=== PATIENT | female | born 1935 | race Caucasian/White ===

== ENCOUNTER → 2017-08-08 | Outpatient (CLI) | payer MEDICARE, BC ==
[2016-11-09 13:49] VITALS: BMI 26.4
[~2017-08-08] MED LIST: ACET-2043 PO; AMLO-96 PO; AMLO-98 PO; AMLO-99 PO; ANAS1TAB34 PO; ASPI-715 PO; CALC-547 PO; CALC-852 PO; CHOL10005 PO; CYAN100088 PO; DILT-145 PO; EZE10 PO; FLU IM; FLU45SYR25 IM ONLY; FLU60SYR30 IM ONLY; FURO-45 PO; GABA-547 PO; GABA-549 PO; IBAN150T6 PO; INDO-1 PO; LEVO-3 PO; LEVO-315 PO; LEVO100T95 PO; LEVO50TA86 PO; LEVO75TA73 PO; LEVO88TA43 PO; LEVO88TA45 PO; LIDO700A19 TP; LISI-368 PO; LOSA100T67 PO; MELO-205 PO; METF-410 PO; METO-231 PO; MULT-1124 PO; MULT1CAP59 PO; NAP250 PO; PANT40TA65 PO; RANI-318 PO; SIMV-42 PO; SIMV-49; SIMV-49 PO; SIMV10TA98 PO; SPIR25TA78 PO; SULF-198 PO; TRAM-420 PO; VYTORIN
--- NOTE | 2017-08-08 12:46 | RADIOLOGY IMAGING REPORT ---
FACILITY: [facility] PATIENT NAME: Val Wallace : 1935 MR: [id number] V: [id number] EXAM DATE: ORDERING PHYSICIAN: KARLOS GREENE TECHNOLOGIST: [place] [facility] [place]: Val Wallace : 1935 Visit/Account:[id number] Date of Sevice: 08/08/2017 Exam type: CHEST PA AND LAT History: Breast cancer, no chest complaints Comparison: April 07, 2017. Findings: There is chronic blunting the right costophrenic angle. Multiple old bilateral fractures and old fra cture to the medial aspect the right clavicle again seen. There is been surgical resection of the di stal tip of the right clavicle as well. There is no evidence of acute appearing infiltrates pleural effusions or pulmonary edema. There is hyperinflation of the lung mata. The cardiac silhouette is normal in size. There are postsurgical changes from a left mastectomy. S-shaped scoliosis of the t horacal lumbar spine with extensive spondylotic changes IMPRESSION: 1. Chronic blunting of the right costophrenic angle although no evidence of acute pulmonary consolid ation Report Dictated By: Barbara Zuniga MD at 08/08/2017 12:39 PM Report E-Signed By: Barbara Zuniga MD at 08/08/2017 12:41 PM WSN:[email or web address]
--- NOTE | 2017-08-08 12:47 | RADIOLOGY IMAGING REPORT ---
FACILITY: [facility] PATIENT NAME: Val Wallace : 1935 MR: [id number] V: [id number] EXAM DATE: ORDERING PHYSICIAN: KARLOS GREENE TECHNOLOGIST: Location: [facility] Patient: Val Wallace : 1935 Visit/Account:[id number] Date of Sevice: 08/08/2017 DEXA Scan Clinical history: History of mastectomy and rib fractures. Comparison: DEXA scan from 11/27/2015. LUMBAR SPINE: The bone mineral density (BMD) measured from L1-L4 correlates with a Z-score of 4.2 and a T-score of 2.2 which is Normal as defined by the World Health Organization. The corresponding risk of fracture in the lumbar spine is Not increased compared with a young adult reference population. This value deutsch s increased by 6.9 % since the prior study. More than 5% change is considered significant. HIP: Bone mineral density (BMD) measured in the LEFT total hip region correlates with a Z-score -0.3 and a T-score of -2.4 which is osteopenia as defined by the World Health Organization. The corresponding risk of fracture in the hip is 4-6 times increased compared to a young adult reference population. Th is value has decreased by 6.9 % since the prior study. More than 5% change is considered significant . T score left femoral neck -1.2 Bone mineral density (BMD) measured in the Femoral Neck region measures 0.867 g/cm?. IMPRESSION: 1. Lumbar spine: Normal. There has been 6.9% increase in the bone mineral density since the previou s exam. 2. Left Total Hip: Osteopenia. There has been 6.9% decrease in the bone mineral density since the p revious exam. 3. Femoral Neck: Bone Mineral Density is 0.867 g/cm? The next DEXA scan of this patient should include the following sites: L1-L4 and the left hip. FRAX? WHO Fracture Risk Assessment Tool link: <http://www.shef.ac.uk/FRAX/tool.jsp?locationValue=9> PLEASE NOTE: 1) The World Health Organization defines low BMD as follows: T-score Normal > -1 Osteopenia < -1 and > -2.5 Osteoporosis < -2.5 without fractures Established osteoporosis < -2.5 with fractures 2) In general, you may wish to consider: Diagnosis Treatment Follow-up DEXA Normal BMD Prevention 2-3 years Osteopenia Prevention/therapy 1-2 years Osteoporosis Therapy Yearly 3) Fracture risk estimated from the T-score is more accurate for vertebral fractures (often spontane ous) than for hip fractures. Report Dictated By: Barbara Zuniga MD at 08/08/2017 12:41 PM Report E-Signed By: Barbara Zuniga MD at 08/08/2017 12:43 PM WSN:[email or web address]
--- NOTE | 2017-08-08 15:55 | RADIOLOGY IMAGING REPORT ---
FACILITY: [facility] - [place] PATIENT NAME: MIGDALIA DIAZ : [id number] MR: [id number] V: [id number] EXAM DATE: ORDERING PHYSICIAN: KARLOS GREENE TECHNOLOGIST: Rachell Dejesus PROCEDURE: MAMMOGRAM SCREENING RIGHT UNILATERAL WITH CAD ASSISTED INTERPRETATION & 3D TOMOSYNTHESIS COMPARISON: Prior mammograms dated 08/07/16, 08/07/15, 08/02/14, 07/29/13, 07/28/12, 07/25/11 INDICATIONS: SCREENING FINDINGS: Moderately heterogeneous fibroglandular tissue is seen throughout the Right breast. The parenchymal pattern has remained stable allowing for difference in mammographic technique & patient positioning. There is no evidence of malignant appearing mass, malignant appearing calcification or other secondary sign of malignancy in the Right breast. DIAGNOSTIC CATEGORY 1--NEGATIVE. RECOMMENDATIONS: ROUTINE MAMMOGRAM AND CLINICAL EVALUATION. IMPRESSION: BIRADS 1: Negative. No significant abnormality of the Right breast is seen. Dictated by: Barbara Zuniga M.D. on 08/08/2017 at 13:22 Transcribed by: ALLEGRA on 08/08/2017 at 14:41 Approved by: Barbara Zuniga M.D. on 08/08/2017 at 15:54 [facility]
== END ==
LOC: MAMO 05:55
PROVIDERS: ATTEND Internal Medicine
DX: Z13.820 Encounter for screening for osteoporosis (principal); Z12.31 Encounter for screening mammogram for malignant neoplasm of breast; M85.88 Other specified disorders of bone density and structure, other site; R91.8 Other nonspecific abnormal finding of lung field; Z90.12 Acquired absence of left breast and nipple; M41.84 Other forms of scoliosis, thoracic region; M47.894 Other spondylosis, thoracic region; Z98.890 Other specified postprocedural states
CPT/HCPCS: 71046; 77063; 77067; 77080

== ENCOUNTER → 2017-09-02 | Outpatient (CLI) | payer MEDICARE, BC ==
[2016-11-09 13:49] VITALS: BMI 26.4
[~2017-09-02] MED LIST changes: -METF-410 PO; +METF-411 PO
[2017-09-02 14:11] LABS: PLATELET COUNT, AUTOMATED 226 K/uL (150-450)
== END ==
LOC: LAB 13:55
PROVIDERS: ATTEND Internal Medicine
DX: E78.00 Pure hypercholesterolemia, unspecified (principal); I10 Essential (primary) hypertension; E03.9 Hypothyroidism, unspecified; R79.89 Other specified abnormal findings of blood chemistry
CPT/HCPCS: 36415; 82040; 82247; 82310; 82374; 82435; 82465; 82565; 82947; 83718; 84075; 84132; 84155; 84295; 84443; 84450; 84460; 84478; 84520; 85025

== ENCOUNTER 2017-09-10 10:48 | Inpatient (IN) | payer MEDICARE, BC ==
[~2017-09-10] VITALS: Ht 152.4 cm; Wt 61.9 kg
[~2017-09-10 10:48] MED LIST changes: -LACT1CAP4 PO
[2017-09-10] MEDS ORDERED: LACT1CAP4 PO (10:52)
--- NOTE | 2017-09-10 11:06 | ER Report ---
History and Physical Time Seen By MD: 10:50 Hx. of Stated Complaint: pt tripped last night and fell behind recliner onto L hip and arm, rebecca a tramadol and thought it would get better but still hurting this am HPI/ROS CHIEF COMPLAINT: Left hip left arm pain HISTORY OF PRESENT ILLNESS: 82-year-old female presents emergency department today after mechanical fall she tripped on a mat underneath a chair in front of her computer at home she has pain onto her left hip and left upper bladder neck trauma no loss of consciousness chest pain abdominal pain was not dizzy prior to was dizzy after the fall unable to ambulate she walked her stumbled herself in the bed went to sleep workup in the pain would be better she is unable to bear weight on the left leg REVIEW OF SYSTEMS: Respiratory: No cough, no dyspnea. Cardiovascular: No chest pain, no palpitations. Gastrointestinal: No vomiting, no abdominal pain. Musculoskeletal: Left arm and left hip pain Remainder of the 14 system rev: Yes Allergies: Coded Allergies: Sulfa (Sulfonamide Antibiotics) (Verified Allergy, Intermediate, 09/10/17) sulfamethoxazole (Verified Allergy, Intermediate, 09/10/17) Flushing of face, Rash to entire body. trimethoprim (Verified Allergy, Intermediate, 09/10/17) Flushing of face, Rash to entire body. Penicillins (Verified Allergy, Mild, 09/10/17) MIKE Inhibitors (Unverified Allergy, Unknown, COUGH, 09/10/17) NSAIDS (Non-Steroidal Anti-Inflamma (Unverified Allergy, Unknown, UNKNOWN , 09/10/17) cephalexin (Unverified Allergy, Unknown, UNKNOWN, 09/10/17) erythromycin base (Unverified Allergy, Unknown, UNKNOWN, 09/10/17) spironolactone (Unverified Allergy, Unknown, UNKNOWN, 09/10/17) Home Meds Active Scripts Losartan Potassium (LOSARTAN POTASSIUM) 100 Mg Tablet, 1 TAB PO QDAY, #90 TAB 3 Refills Prov:KARLOS GREENE MD 09/05/17 Gabapentin (GABAPENTIN) 300 Mg Capsule, 300 MG PO TID Y for pain, #180 CAPSULE 4 Refills Prov:KARLOS GREENE MD 07/29/17 Levothyroxine Sodium (LEVOTHYROXINE SODIUM) 50 Mcg Tablet, 50 MCG PO QDAY, #90 TAB 4 Refills Prov:KARLOS GREENE MD 07/29/17 Simvastatin (SIMVASTATIN) 10 Mg Tablet, 10 MG PO HS, #90 TAB 3 Refills Prov:KARLOS GREENE MD 05/13/17 Amlodipine Besylate (AMLODIPINE BESYLATE) 5 Mg Tablet, 1 TAB PO QDAY, #90 TAB 4 Refills Prov:KARLOS GREENE MD 05/13/17 Tramadol Hcl (TRAMADOL HCL) 50 Mg Tablet, 50 MG PO QID Y for PAIN, #120 TAB 5 Refills Prov:KARLOS GREENE MD 05/13/17 Pantoprazole Sodium (PANTOPRAZOLE SODIUM) 40 Mg Tablet.dr, 40 MG PO QDAY, #90 TAB.SR 3 Refills Prov:KARLOS GREENE MD 11/14/16 Lidocaine (Lidocaine) 5 % Adh..patch, 1 EACH TP QDAY, #14 PATCH.24H 2 Refills Prov:ISABELA LOPEZ MD 11/10/16 Acetaminophen (ACETAMINOPHEN) 500 Mg Tablet, 500-1000 MG PO Q8H Y for PAIN for 30 Days, TAB Prov:ISABELA LOPEZ MD 11/10/16 Reported Medications Lactobacillus Acidophilus (PROBIOTIC) 1 Each Capsule, 1 EACH PO DAILY, CAPSULE 09/10/17 Cholecalciferol (Vitamin D3) (VITAMIN D3) 1,000 Unit Tablet, 1 TAB PO DAILY 12/22/13 Multivitamin (DAILY VITAMIN FORMULA) 1 Each Tablet, 1 TAB PO DAILY 12/22/13 Calcium Carbonate/Vitamin D3 (CALCIUM + VITAMIN D TABLET) 1 Each Tablet, 1 TAB PO DAILY 12/22/13 Reviewed Nurses Notes: Yes Old Medical Records Reviewed: Yes Hx Smoking: No Smoking Status: Never Smoker Hx Substance Use Disorder: No Hx Alcohol Use: Yes Constitutional Vital Sign - Last 24 Hours 09/10/17 10:53 Temp 97.7 Pulse 72 B/P (MAP) 136/91 Pulse Ox 18 Physical Exam General Appearance: The patient is alert, has no immediate need for airway protection and no current signs of toxicity. [ ] Eyes: Pupils equal and round no injection. Respiratory: Chest is non tender, lungs are clear to auscultation. Cardiac: regular rate and rhythm [ ] Gastrointestinal: Abdomen is soft and non tender, no masses, bowel sounds normal. Musculoskeletal: Left lower external examination pain with abduction and adduction the left lower extremity and able to weight-bear pain with flexion and extension of the hip no obvious deformity noted neurovascularly intact left upper extremity full range of motion of the elbow shoulder and wrist no obvious deformities no bruising mild tenderness to the distal humeral bone otherwise unremarkable exam Neck is supple and non tender. Extremities full range of motion other than stated above Skin: No rashes or lesions. [ ] DIFFERENTIAL DIAGNOSIS: After history and physical exam differential diagnosis was considered for left hip fracture left contusion left arm fracture versus contusion Medical Decision Making ED Course/Re-evaluation ED Course ED coming course medical decision-making 82-year-old female mechanical fall she has a inferior and superior rami fractures comminuted mildly displaced and a small sacral fracture unable to ambulate orthopedics evaluating imaging advised to attempt ambulation this was unsuccessful patient able and will be admitted orthopedics will be consulted as an inpatient patient will be considered for outpatient prolonged care wants inpatient duration is patient no additional complaints noted no head or neck trauma no loss of consciousness no neck any indication for additional imaging diagnosis pelvis fracture Decision to Disposition Date: September 10, 2017 Decision to Disposition Time: 13:21 Depart Departure Latest Vital Signs Vital Signs Date Time Temp Pulse Resp B/P (MAP) Pulse Ox O2 Delivery O2 Flow Rate FiO2 09/10/17 10:53 97.7 72 136/91 18 Impression: Primary Impression: Pelvis fracture Condition: Improved Disposition: Admitted from ER Referrals: KARLOS GREENE MD (PCP) NAMAN LOVE MD September 10, 2017 11:06
--- NOTE | 2017-09-10 11:50 | RADIOLOGY IMAGING REPORT ---
FACILITY: [facility] PATIENT NAME: Val Wallace : 1935 MR: [id number] V: [id number] EXAM DATE: ORDERING PHYSICIAN: NAMAN LOVE TECHNOLOGIST: Location: [facility] [place] Patient: Val Wallace : 1935 Visit/Account:[id number] Date of Sevice: 09/10/2017 AP pelvis, one view, and left hip, one view. HISTORY: Fall last night. COMPARISON: 12/14/2014. The bones are osteopenic. A mildly comminuted oblique fracture is present in the left superior pubic ramus resulting in a 5 mm offset of fracture fragments. Slight cortical irregularities are present in the left inferior pubic ramus near its junction with the ischium suspicious for a nondisplaced fra cture. Small marginal osteophytes and moderate joint space narrowing are present in the left hip. M etal hardware is present in the right hip. Degenerative changes are present in the lower lumbar spin e. The sacroiliac joints are not widened. A few dystrophic calcifications are present in the soft t issues bilaterally. IMPRESSION: Insufficiency fractures of the left superior and inferior pubic rami. Moderate left hip osteoarthritis. Report Dictated By: Gagandeep Thomas MD at 09/10/2017 11:40 AM Report E-Signed By: Gagandeep Thomas MD at 09/10/2017 11:46 AM WSN:[email or web address]
--- NOTE | 2017-09-10 12:00 | RADIOLOGY IMAGING REPORT ---
FACILITY: [facility] PATIENT NAME: Val Wallace : 1935 MR: [id number] V: [id number] EXAM DATE: ORDERING PHYSICIAN: NAMAN LOVE TECHNOLOGIST: Location: [facility] Patient: Val Wallace : 1935 Visit/Account:[id number] Date of Sevice: 09/10/2017 Left humerus, two views. HISTORY: Fall. COMPARISON: None. The bones are osteopenic. A lucent line projects on the proximal humerus possibly representing a ski n fold. Degenerative changes are present in the shoulder and elbow. Metal clips project on the left chest. IMPRESSION: A lucent line projects on the proximal humerus possibly representing a skin fold. A nondisplaced fra cture is not excluded. Additional imaging might be considered, if clinically indicated. Report Dictated By: Gagandeep Thomas MD at 09/10/2017 11:50 AM Report E-Signed By: Gagandeep Thomas MD at 09/10/2017 11:56 AM SAMSONN:MARGARET
--- NOTE | 2017-09-10 12:49 | RADIOLOGY IMAGING REPORT ---
FACILITY: [facility] PATIENT NAME: Val Wallace : 1935 MR: [id number] V: [id number] EXAM DATE: ORDERING PHYSICIAN: NAMAN LOVE TECHNOLOGIST: Location: [facility] Patient: Val Wallace : 1935 Visit/Account:[id number] Date of Sevice: 09/10/2017 CT of the osseous pelvis without contrast Indication: Left-sided pelvic pain. Comparison: None available. Technique: Axial CT images were obtained through the pelvis. Reformatted coronal and sagittal images were reviewed. One of the following dose optimization techniques was utilized in the performance of this exam: Autom ated exposure control; adjustment of the mA and/or kV according to the patient's size; or use of an i terative reconstruction technique. Specific details can be referenced in the facility's radiology C T exam operational policy. Findings: There is a mildly displaced and comminuted fracture of the left superior rami and the left inferior r ami. There is a nondisplaced fracture of the left sacrum, just medial to the SI joint. SI joint appea rs to be intact. The left acetabulum shows no appreciable fractures. The left femoral head and neck s how no appreciable fractures. No dislocation. Right hip shows arthroplasty changes without sequelae. No other indication of fracture. No dislocation or bony lesion. Mild diffuse osteopenia. The soft tis sues around the left hip and upper thigh do show some mild areas of atrophy however no other focal ab normality. No appreciable left hip joint effusion. There is thickening of the left obturator internus muscle which could represent a small hematoma. The re is no appreciable mass effect. The anterior and left intra-pelvic fat does show inflammatory and l inear stranding without hematoma or other focal abnormality. The urinary bladder appears to be intact . Diverticula seen along the sigmoid colon without discrete pericolonic inflammation. The uterus and ovaries and visualized may been surgically removed. The remaining pelvic structures visualized within normal limits. IMPRESSION: 1. There is nondisplaced fracture of the left sacrum, just medial to the SI joint, SI joint is intact . There is a mildly displaced and comminuted fracture of the left superior and inferior rami. 2. There is prominence of the left obturator internus muscle which could be secondary to hematoma wit hout mass effect. There is also some stranding of the intrapelvic fat of the anterior and left side w hich could be secondary to traumatic injury. A cause is not identified within the pelvis. The urinary bladder appears to be intact. 3. Diverticulosis without radiographic indication diverticulitis. Report Dictated By: Wily Khan at 09/10/2017 12:33 PM Report E-Signed By: Wily Khan at 09/10/2017 12:44 PM WSN:[email or web address]
[2017-09-10] MEDS ORDERED: MORPHINE 4 MG/ML SDV IVP PRN (14:55)
[2017-09-10] MEDS ORDERED: PROMETHAZINE 25 MG/ML 1 ML AMP IVP PRN (14:55)
[2017-09-10 15:43] VITALS: BP 142/78
--- NOTE | 2017-09-10 15:43 | History & Physical ---
History of Present Illness Chief Complaint Left hip pain History of Present Illness She presented to the emergency department with left hip pain. She reports she tripped over a floor mat at home and fell onto her left side last night. She states she was able to get herself into bed for the evening, but was not able to ambulate this morning. She denies any head or neck trauma. History Problems: (1) Hx of mastectomy Onset Date: 08/01/2014 Status: Chronic (2) Hypertension, benign Status: Chronic (3) Hypercholesterolemia Status: Chronic (4) Esophageal reflux Status: Chronic (5) Hypothyroidism Status: Chronic Home Meds Active Scripts Losartan Potassium (LOSARTAN POTASSIUM) 100 Mg Tablet, 1 TAB PO QDAY, #90 TAB 3 Refills Prov:KARLOS GREENE MD 09/05/17 Gabapentin (GABAPENTIN) 300 Mg Capsule, 300 MG PO TID Y for pain, #180 CAPSULE 4 Refills Prov:KARLOS GREENE MD 07/29/17 Levothyroxine Sodium (LEVOTHYROXINE SODIUM) 50 Mcg Tablet, 50 MCG PO QDAY, #90 TAB 4 Refills Prov:KARLOS GREENE MD 07/29/17 Simvastatin (SIMVASTATIN) 10 Mg Tablet, 10 MG PO HS, #90 TAB 3 Refills Prov:KARLOS GREENE MD 05/13/17 Amlodipine Besylate (AMLODIPINE BESYLATE) 5 Mg Tablet, 1 TAB PO QDAY, #90 TAB 4 Refills Prov:KARLOS GREENE MD 05/13/17 Tramadol Hcl (TRAMADOL HCL) 50 Mg Tablet, 50 MG PO QID Y for PAIN, #120 TAB 5 Refills Prov:KARLOS GREENE MD 05/13/17 Pantoprazole Sodium (PANTOPRAZOLE SODIUM) 40 Mg Tablet.dr, 40 MG PO QDAY, #90 TAB.SR 3 Refills Prov:KARLOS GREENE MD 11/14/16 Acetaminophen (ACETAMINOPHEN) 500 Mg Tablet, 500-1000 MG PO Q8H Y for PAIN for 30 Days, TAB Prov:ISABELA LOPEZ MD 11/10/16 Reported Medications Lactobacillus Acidophilus (PROBIOTIC) 1 Each Capsule, 1 EACH PO DAILY, CAPSULE 09/10/17 Cholecalciferol (Vitamin D3) (VITAMIN D3) 1,000 Unit Tablet, 1 TAB PO DAILY 12/22/13 Multivitamin (DAILY VITAMIN FORMULA) 1 Each Tablet, 1 TAB PO DAILY 12/22/13 Calcium Carbonate/Vitamin D3 (CALCIUM + VITAMIN D TABLET) 1 Each Tablet, 1 TAB PO DAILY 12/22/13 Discontinued Scripts Lidocaine (Lidocaine) 5 % Adh..patch, 1 EACH TP QDAY, #14 PATCH.24H 2 Refills Prov:ISABELA LOPEZ MD 11/10/16 Allergies: Coded Allergies: Sulfa (Sulfonamide Antibiotics) (Verified Allergy, Intermediate, 09/10/17) sulfamethoxazole (Verified Allergy, Intermediate, 09/10/17) Flushing of face, Rash to entire body. trimethoprim (Verified Allergy, Intermediate, 09/10/17) Flushing of face, Rash to entire body. Penicillins (Verified Allergy, Mild, 09/10/17) MIKE Inhibitors (Unverified Allergy, Unknown, COUGH, 09/10/17) NSAIDS (Non-Steroidal Anti-Inflamma (Unverified Allergy, Unknown, UNKNOWN , 09/10/17) cephalexin (Unverified Allergy, Unknown, UNKNOWN, 09/10/17) erythromycin base (Unverified Allergy, Unknown, UNKNOWN, 09/10/17) spironolactone (Unverified Allergy, Unknown, UNKNOWN, 09/10/17) Patient History: FH: CHF (congestive heart failure) MOTHER, , Age:79 FH: breast cancer 1ST COUSIN, FH: multiple myeloma BROTHER OR SISTER Unknown FATHER Hx Smoking: No Smoking Status: Never Smoker Hx Alcohol Use: Yes Hx Substance Use Disorder: No Social Drug Use: Never Review of Systems All Systems Reviewed/Normal: Yes, Except as Noted Musculoskeletal: Pain (left hip) Exam Vital Signs Vital Signs Date Time Temp Pulse Resp B/P (MAP) Pulse Ox O2 Delivery O2 Flow Rate FiO2 09/10/17 14:00 152/71 (98) 09/10/17 13:35 65 96 09/10/17 10:53 97.7 General Appearance: Alert, Awake, No Acute Distress, Afebrile Neuro: No Gross deficits Cardiovascular: Regular Rate and Rhythm Respiratory: No Respiratory Distress, Clear to Auscultation GI: Abd Soft and Non-Tender Extremities: Perfused, No Edema Psych: Alert & Oriented X3, Appropriate Mood & Affect Assessment and Plan Problems: (1) Pelvis fracture Status: Acute Assessment & Plan: She was admitted for pelvis fracture. CT of pelvis noted a nondisplaced fracture of the left sacrum and a mildly displaced fracture to the superior and inferior rami. She will be given IV and oral pain medication. She will get a Hurt catheter to help with urination. She will get her labs checked today. At this time, we will keep her non-weight bearing on the left leg. We will order PT and OT evaluation. (2) Hypertension, benign Status: Chronic Assessment & Plan: She is on chronic treatment with Amlodipine and Losartan. The medications were started with hold parameters. (3) Hypothyroidism Status: Chronic Assessment & Plan: She is on chronic treatment with Levothyroxine. (4) Hypercholesterolemia Status: Chronic Assessment & Plan: She is on chronic treatment with Simvastatin. Venous Thromboembolism Antithrombotics Is Pt On Any Antithrombotics?: No Exam Sepsis Risk: No Definite Risk Problem Qualifiers (1) Pelvis fracture: Encounter type: initial encounter KELVIN PLATT September 10, 2017 15:43
[2017-09-10] MEDS: APAP/HYDROCODONE 325/5 TAB PO PRN ×2 (15:54→23:08)
[2017-09-10 16:40] LABS: PLATELET COUNT, AUTOMATED 143 K/uL (150-450)
[2017-09-10 16:49] LABS: INR 1.06
[2017-09-10] MEDS ORDERED: LIDOCAINE/SOD BICARB 8.4% SYR ONE (17:27)
[2017-09-10 20:42] VITALS: BP 108/104
[2017-09-10] MEDS: SIMVASTATIN 20 MG TAB PO SCH (20:45)
[2017-09-10] MEDS: GABAPENTIN 300 MG CAP PO PRN (20:45)
[2017-09-11 05:15] VITALS: BP 158/80
[2017-09-11] MEDS: LEVOTHYROXINE SOD 0.05 MG TAB PO SCH (05:19)
[2017-09-11] MEDS: APAP/HYDROCODONE 325/5 TAB PO PRN ×3 (05:20→21:17)
[2017-09-11 06:15] LABS: PLATELET COUNT, AUTOMATED 131 K/uL (150-450)
[2017-09-11 07:16] VITALS: BP 148/74
[2017-09-11] MEDS: NS(*) 0.9% 1000 ML BAG 1,000 ML IV PRN ×2 (10:11→21:48)
[2017-09-11] MEDS: GABAPENTIN 300 MG CAP PO PRN ×2 (10:11→20:19)
[2017-09-11] MEDS: amLODIPine BESYL(*) 5 MG TAB PO SCH (10:12)
[2017-09-11] MEDS: LOSARTAN POTASSIUM 50 MG TAB PO SCH (10:12)
[2017-09-11] MEDS: PANTOPRAZOLE SOD 40 MG TABEC PO SCH (10:12)
[2017-09-11 12:29] VITALS: Ht 152.4 cm; Wt 61.9 kg
--- NOTE | 2017-09-11 13:41 | Hospitalist Progress Note ---
Subjective Progress Notes Subjective She reports her pain is much better today. Patient Complains of: Cardiovascular: No: Chest Pain Respiratory: No: Shortness of Breath Physical Exam Vital Signs Date Time Temp Pulse Resp B/P (MAP) Pulse Ox O2 Delivery O2 Flow Rate FiO2 09/11/17 10:00 Nasal Cannula 1.0 09/11/17 07:16 98.9 72 18 148/74 (98) 90 Intake and Output 09/12/17 01:00 Intake Total 840 ml Output Total 550 ml Balance 290 ml Intake Oral 840 ml Output Urine Total 550 ml General Appearance: Alert, Awake, No Acute Distress, Afebrile Neuro: No Gross deficits Cardiovascular: Regular Rate and Rhythm Respiratory: No Respiratory Distress, Clear to Auscultation GI: Soft and Non-Tender Psych: Alert & Oriented X3, Appropriate Mood & Affect Result Diagram: 09/11/1751409/11/17514 Assessment and Plan Problems: (1) Pelvis fracture Status: Acute Assessment & Plan: She was admitted for pelvis fracture. CT of pelvis noted a nondisplaced fracture of the left sacrum and a mildly displaced fracture to the superior and inferior rami. She will be given IV and oral pain medication. She will get a Hurt catheter to help with urination. Dr. Aparicio reviewed CT results , and we can advance to weight bearing to the left leg as tolerated. PT and OT will continue to work with patient for mobility. (2) Hyponatremia Status: Acute Assessment & Plan: She was found to have a sodium of 125 upon admission. She will receive IV hydration for sodium. We will recheck BMP. (3) Hypertension, benign Status: Chronic Assessment & Plan: She is on chronic treatment with Amlodipine and Losartan. The medications were started with hold parameters. (4) Hypothyroidism Status: Chronic Assessment & Plan: She is on chronic treatment with Levothyroxine. (5) Hypercholesterolemia Status: Chronic Assessment & Plan: She is on chronic treatment with Simvastatin. Exam Sepsis Risk: No Definite Risk Problem Qualifiers (1) Pelvis fracture: Encounter type: initial encounter KELVIN PLATTP September 11, 2017 13:41
[2017-09-11 16:00] VITALS: BP 144/74
[2017-09-11] MEDS: SIMVASTATIN 20 MG TAB PO SCH (20:19)
[2017-09-11 20:22] VITALS: BP 146/69
[2017-09-12 05:35] VITALS: BP 163/75
[2017-09-12] MEDS: LEVOTHYROXINE SOD 0.05 MG TAB PO SCH (05:35)
[2017-09-12] MEDS: GABAPENTIN 300 MG CAP PO PRN ×2 (05:35→20:16)
[2017-09-12 05:50] LABS: PLATELET COUNT, AUTOMATED 121 K/uL (150-450)
[2017-09-12] MEDS: NS(*) 0.9% 1000 ML BAG 1,000 ML IV PRN ×2 (08:31→20:16)
[2017-09-12] MEDS: PANTOPRAZOLE SOD 40 MG TABEC PO SCH (08:32)
[2017-09-12] MEDS: amLODIPine BESYL(*) 5 MG TAB PO SCH (09:53)
[2017-09-12] MEDS: LOSARTAN POTASSIUM 50 MG TAB PO SCH (09:53)
[2017-09-12 09:56] VITALS: BP 159/74
--- NOTE | 2017-09-12 10:14 | RADIOLOGY IMAGING REPORT ---
FACILITY: [facility] PATIENT NAME: Val Wallace : 1935 MR: [id number] V: [id number] EXAM DATE: ORDERING PHYSICIAN: KELVIN PLATT TECHNOLOGIST: [place] [facility] [place] : 1935 Visit/Account:[id number] Date of Sevice: 09/12/2017 CHEST, 1 Views HISTORY: Fever and increased oxygen use COMPARISON: 08/08/2017 FINDINGS: Heart size is normal. Normal size thoracic aorta is calcified at the arch. Mediastinum and blanca are normal. Lungs are clear of infiltrate and atelectasis. There is no pneumothorax or pleural effusion. There are right-sided healed fracture deformities. Previous left mastectomy and axillary lymph node sampling. IMPRESSION: No radiographic evidence of an acute chest process. Report Dictated By: Shira Sanders MD at 09/12/2017 9:24 AM Report E-Signed By: Shira Sanders MD at 09/12/2017 9:38 AM WSN:[email or web address]
--- NOTE | 2017-09-12 10:23 | RADIOLOGY IMAGING REPORT ---
[place] [facility] [place] Val Wallace : 1935 MR: [id number] V: [id number] EXAM DATE: ORDERING PHYSICIAN: KELVIN PLATT TECHNOLOGIST: Location: Patient: Val Wallace : 1935 Visit/Account:[id number] Date of Sevice: 09/12/2017 CT left shoulder Indication: Limited range of motion. Pain and bruising. Comparison: None available. Technique: Axial CT images were obtained through the left shoulder. Reformatted coronal and sagittal images were reviewed. One of the following dose optimization techniques was utilized in the performance of this exam: autom ated exposure control; adjustment of the mA and/or kV according to the patient's size; or use of an i terative reconstruction technique. Specific details can be referenced in the facility's radiology CT exam operational policy. Findings: No acute osseous abnormality of the bones of the shoulder. Markedly high riding humeral head noted in relation to the glenoid with the humeral head abutting the undersurface of the acromion consistent with a massive rotator cuff tear. These findings suggest com plete tearing of the supraspinatus and infraspinatus. There is significant motion artifact on the superior images on this exam. There are moderate to severe acromioclavicular degenerative changes also seen. There is a moderate sized likely reactive effusion glenohumeral joint. The biceps tendon appears to be intact within the superior bicipital groove. Multiple surgical clips seen within the left axilla. Correlate with the surgical history. Patchy/streaky atelectasis versus early infiltrates suggested within the visualized medial left lower lung. No definite pneumothorax identified within the left lung field or the medial mid to superior r ight visualized lung field. There are moderate atherosclerotic calcifications of the aortic arch. IMPRESSION: 1. Massive rotator cuff tear suggested as above. 2. Significant degenerative changes of the glenohumeral joint and the acromioclavicular joint. 3. No acute osseous abnormality. Report Dictated By: Brijesh Pacheco MD at 09/12/2017 10:16 AM Report E-Signed By: Brijesh Pacheco MD at 09/12/2017 10:19 AM WSN:[id number]
[2017-09-12] MEDS ORDERED: LEVOFLOXACIN/D5W 250 MG/50 ML 50 ML IVPB SCH (11:00)
--- NOTE | 2017-09-12 11:14 | Hospitalist Progress Note ---
Subjective Progress Notes Subjective Staff reports increased oxygen use since last night up to 3L, and low grade fevers. She denies cough. She does states she is having pain to her left shoulder and has been unable to raise her arm without assistance in lifting it. Patient Complains of: Cardiovascular: No: Chest Pain Respiratory: No: Shortness of Breath Musculoskeletal: Pain Physical Exam Vital Signs Date Time Temp Pulse Resp B/P (MAP) Pulse Ox O2 Delivery O2 Flow Rate FiO2 09/12/17 09:56 99.2 86 18 159/74 (102) 92 Nasal Cannula 1.0 Intake and Output 09/13/17 01:00 Intake Total 1842 ml Output Total 1400 ml Balance 442 ml Intake Oral 840 ml IV Total 1002 ml Output Urine Total 1400 ml General Appearance: Alert, Awake, No Acute Distress Neuro: No Gross deficits Cardiovascular: Regular Rate and Rhythm Respiratory: No Respiratory Distress, Clear to Auscultation GI: Soft and Non-Tender : Other (cloudy urine noted from bansal) Extremities: Soft and Non Tender Psych: Alert & Oriented X3, Appropriate Mood & Affect Result Diagram: 09/12/1751809/12/17518 Assessment and Plan Problems: (1) Pelvis fracture Status: Acute Assessment & Plan: She was admitted for pelvis fracture. CT of pelvis noted a nondisplaced fracture of the left sacrum and a mildly displaced fracture to the superior and inferior rami. She will be given IV and oral pain medication. She has a Bansal catheter to help with urination. Dr. Aparicio reviewed CT results, and we can advance to weight bearing to the left leg as tolerated. PT and OT will continue to work with patient for mobility. (2) UTI (urinary tract infection) Status: Acute Assessment & Plan: She had cloudy urine from catheter, along with increased fever. Her urine shows large leukocyte esterase and WBC. The urine culture is pending. We will start the patient on Levaquin secondary to many antibiotic allergies. (3) Hyponatremia Status: Acute Assessment & Plan: She was found to have a sodium of 125 upon admission. Sodium today is improving at 135. She will receive IV hydration for sodium. We will recheck BMP tomorrow. (4) Hypertension, benign Status: Chronic Assessment & Plan: She is on chronic treatment with Amlodipine and Losartan. The medications were started with hold parameters. (5) Hypothyroidism Status: Chronic Assessment & Plan: She is on chronic treatment with Levothyroxine. (6) Hypercholesterolemia Status: Chronic Assessment & Plan: She is on chronic treatment with Simvastatin. Exam Sepsis Risk: No Definite Risk Problem Qualifiers (1) Pelvis fracture: Encounter type: initial encounter (2) UTI (urinary tract infection): Urinary tract infection type: acute cystitis Hematuria presence: with hematuria Qualified Codes: N30.01 - Acute cystitis with hematuria KELVIN PLATT September 12, 2017 11:13
[2017-09-12 11:28] VITALS: BP 176/88
[2017-09-12 15:24] VITALS: BP 157/80
[2017-09-12] MEDS: APAP/HYDROCODONE 325/5 TAB PO PRN (17:02)
[2017-09-12 19:42] VITALS: BP 157/75
[2017-09-12] MEDS: SIMVASTATIN 20 MG TAB PO SCH (20:16)
[2017-09-13 05:33] VITALS: BP 165/83
[2017-09-13] MEDS: LEVOTHYROXINE SOD 0.05 MG TAB PO SCH (05:36)
[2017-09-13] MEDS: NS(*) 0.9% 1000 ML BAG 1,000 ML IV PRN ×2 (06:07→16:00)
[2017-09-13 06:33] LABS: PLATELET COUNT, AUTOMATED 114 K/uL (150-450)
[2017-09-13 07:41] VITALS: BP 166/77
[2017-09-13] MEDS: amLODIPine BESYL(*) 5 MG TAB PO SCH (09:25)
[2017-09-13] MEDS: LOSARTAN POTASSIUM 50 MG TAB PO SCH (09:25)
[2017-09-13] MEDS: PANTOPRAZOLE SOD 40 MG TABEC PO SCH (09:26)
[2017-09-13] MEDS: APAP/HYDROCODONE 325/5 TAB PO PRN ×2 (09:26→21:01)
[2017-09-13] MEDS ORDERED: LEVOFLOXACIN 500 MG TAB PO SCH (10:00)
--- NOTE | 2017-09-13 11:22 | Hospitalist Progress Note ---
Subjective Progress Notes Subjective This patient was admitted for a pelvic fracture. She had no acute events overnight. Patient Complains of: Cardiovascular: No: Chest Pain Respiratory: No: Shortness of Breath Physical Exam Vital Signs Date Time Temp Pulse Resp B/P (MAP) Pulse Ox O2 Delivery O2 Flow Rate FiO2 09/13/17 10:51 97 Nasal Cannula 2.0 09/13/17 07:41 99.1 78 16 166/77 (106) Intake and Output 09/14/17 07:00 Intake Total 240 ml Balance 240 ml Intake Oral 240 ml Cardiovascular: Regular Rate and Rhythm Respiratory: Clear to Auscultation Result Diagram: 09/13/17 0605 09/13/17 0636 Assessment and Plan Problems: (1) Pelvis fracture Status: Acute Assessment & Plan: She was admitted for pelvis fracture. CT of pelvis noted a nondisplaced fracture of the left sacrum and a mildly displaced fracture to the superior and inferior rami. She will be given IV and oral pain medication. She has a Hurt catheter to help with urination. Dr. Aparicio reviewed CT results, and we can advance to weight bearing to the left leg as tolerated. PT and OT will continue to work with patient for mobility. (2) UTI (urinary tract infection) Status: Acute Assessment & Plan: She had cloudy urine from catheter, along with increased fever. Her urine shows large leukocyte esterase and WBC. Her urine culture has been negative. She is on 3 days of oral levofloxacin. (3) Hyponatremia Status: Acute Assessment & Plan: She was found to have a sodium of 125 upon admission. Sodium today is improving at 135. Improving with IV fluids. (4) Hypertension, benign Status: Chronic Assessment & Plan: She is on chronic treatment with Amlodipine and Losartan. The medications were started with hold parameters. (5) Hypothyroidism Status: Chronic Assessment & Plan: She is on chronic treatment with Levothyroxine. (6) Hypercholesterolemia Status: Chronic Assessment & Plan: She is on chronic treatment with Simvastatin. Exam Sepsis Risk: No Definite Risk Problem Qualifiers (1) Pelvis fracture: Encounter type: initial encounter (2) UTI (urinary tract infection): Urinary tract infection type: acute cystitis Hematuria presence: with hematuria Qualified Codes: N30.01 - Acute cystitis with hematuria ROSARIO PETIT DO September 13, 2017 11:22
[2017-09-13] MEDS ORDERED: BISACODYL 10 MG SUPP PR PRN (12:05)
[2017-09-13] MEDS ORDERED: MAGNESIUM HYDROXIDE* 30ML UDCP PO PRN (12:05)
--- NOTE | 2017-09-13 12:21 | RADIOLOGY IMAGING REPORT ---
FACILITY: [facility] - [place] PATIENT NAME: Val Wallace : 1935 MR: [id number] V: [id number] EXAM DATE: ORDERING PHYSICIAN: ROSARIO PETIT TECHNOLOGIST: Location: [facility] - [place] Patient: Val Wallace : 1935 Visit/Account:[id number] Date of Sevice: 09/13/2017 Venous Doppler ultrasound left upper extremity Indication: Left wrist swelling. Comparison: None available. Findings: There is normal compressibility and blood flow of the left internal jugular vein. There is normal blood flow to the left subclavian vein. There is normal compressibility and blood flow identified within the left axillary vein, brachial vei ns, basilic and cephalic veins. The left radial and ulnar veins are patent. Subcutaneous tissues are unremarkable. IMPRESSION: 1. No evidence of deep venous thrombosis of the left upper extremity. Report Dictated By: Wily Khan at 09/13/2017 12:15 PM Report E-Signed By: Wily Khan at 09/13/2017 12:17 PM WSN:[id number]
[2017-09-13 15:34] VITALS: BP 158/76
[2017-09-13] MEDS: DOCUSATE SODIUM 100 MG CAP PO SCH ×2 (15:45→20:58)
[2017-09-13] MEDS: POLYETHYLENE GLYCOL 17 GM PKT PO SCH (15:46)
[2017-09-13 20:54] VITALS: BP 167/104
[2017-09-13] MEDS: SIMVASTATIN 20 MG TAB PO SCH (20:59)
[2017-09-14] VITALS (7 sets, daily range): BP systolic 104–180; BP diastolic 73–104
[2017-09-14] MEDS: NS(*) 0.9% 1000 ML BAG 1,000 ML IV PRN ×2 (03:07→14:56)
[2017-09-14] MEDS: LEVOTHYROXINE SOD 0.05 MG TAB PO SCH (06:04)
[2017-09-14] MEDS: PANTOPRAZOLE SOD 40 MG TABEC PO SCH (08:44)
[2017-09-14] MEDS: LOSARTAN POTASSIUM 50 MG TAB PO SCH (08:44)
[2017-09-14] MEDS: POTASSIUM CHL 10 MEQ TABCR PO SCH ×2 (08:44→17:18)
[2017-09-14] MEDS: POLYETHYLENE GLYCOL 17 GM PKT PO SCH (08:45)
[2017-09-14] MEDS: DOCUSATE SODIUM 100 MG CAP PO SCH ×2 (08:45→20:37)
[2017-09-14] MEDS: amLODIPine BESYL(*) 5 MG TAB PO SCH (08:45)
--- NOTE | 2017-09-14 09:59 | Hospitalist Progress Note ---
Subjective Progress Notes Subjective She reports pain is well controlled at rest, but significant pain with mobilization. Physical Exam Vital Signs Date Time Temp Pulse Resp B/P (MAP) Pulse Ox O2 Delivery O2 Flow Rate FiO2 09/14/17 07:10 Nasal Cannula 1.0 09/14/17 07:02 71 16 180/80 (113) 95 09/14/17 06:01 98.9 General Appearance: Alert, Awake Cardiovascular: Regular Rate and Rhythm Extremities: Warm, Perfused Result Diagram: 09/13/17 0605 09/13/17 0636 Assessment and Plan Problems: (1) Pelvis fracture Status: Acute Assessment & Plan: She was admitted for pelvis fracture and inability to ambulate. CT of pelvis noted a nondisplaced fracture of the left sacrum and a mildly displaced fracture to the superior and inferior rami. She is IV and oral pain medication. She has a Hurt catheter in place. Dr. Aparicio reviewed CT results, and we can advance to weight bearing to the left leg as tolerated. PT and OT will continue to work with patient. (2) UTI (urinary tract infection) Status: Acute Assessment & Plan: She had cloudy urine from catheter specimen, along with increased fever. Her urine shows large leukocyte esterase and WBC. Her urine culture is growing a GNR. She is currently on levofloxacin. (3) Hyponatremia Status: Acute Assessment & Plan: She was found to have a sodium of 125 upon admission. Sodium today is improving at 131. Monitor. (4) Hypertension, benign Status: Chronic Assessment & Plan: She is on chronic treatment with Amlodipine and Losartan. The medications have been re-started with hold parameters. (5) Hypothyroidism Status: Chronic Assessment & Plan: She is on chronic treatment with Levothyroxine. (6) Hypercholesterolemia Status: Chronic Assessment & Plan: She is on chronic treatment with Simvastatin. Exam Sepsis Risk: No Definite Risk Problem Qualifiers (1) Pelvis fracture: Encounter type: initial encounter (2) UTI (urinary tract infection): Urinary tract infection type: acute cystitis Hematuria presence: with hematuria Qualified Codes: N30.01 - Acute cystitis with hematuria ISABELA LOPEZ MD September 14, 2017 09:59
[2017-09-14] MEDS: APAP/HYDROCODONE 325/5 TAB PO PRN ×2 (10:43→17:19)
[2017-09-14] MEDS: SIMVASTATIN 20 MG TAB PO SCH (20:37)
[2017-09-15] MEDS: APAP/HYDROCODONE 325/5 TAB PO PRN ×2 (00:34→06:13)
[2017-09-15] MEDS: NS(*) 0.9% 1000 ML BAG 1,000 ML IV PRN (02:01)
[2017-09-15 03:42] VITALS: BP 156/83
[2017-09-15] MEDS: LEVOTHYROXINE SOD 0.05 MG TAB PO SCH (05:56)
[2017-09-15 07:17] LABS: PLATELET COUNT, AUTOMATED 183 K/uL (150-450)
[2017-09-15 07:35] VITALS: BP 171/87
[2017-09-15] MEDS: POLYETHYLENE GLYCOL 17 GM PKT PO SCH (08:38)
[2017-09-15] MEDS: DOCUSATE SODIUM 100 MG CAP PO SCH (08:38)
[2017-09-15] MEDS: LOSARTAN POTASSIUM 50 MG TAB PO SCH (08:38)
[2017-09-15] MEDS: amLODIPine BESYL(*) 5 MG TAB PO SCH (08:38)
[2017-09-15] MEDS: PANTOPRAZOLE SOD 40 MG TABEC PO SCH (08:38)
[2017-09-15] MEDS ORDERED: LEVOFLOXACIN 500 MG TAB PO SCH (10:00)
[2017-09-15] MEDS: POTASSIUM CHL 10 MEQ TABCR PO SCH (10:33)
--- NOTE | 2017-09-15 10:42 | Hospitalist Depart ---
Discharge Summary Reason for Hosp/Final Diag: (1) Pelvis fracture Status: Acute Hospital Course & Plan: She was admitted for pelvis fracture and inability to ambulate. CT of pelvis noted a nondisplaced fracture of the left sacrum and a mildly displaced fracture to the superior and inferior rami. She was initially placed on IV and oral pain medication. She had a Hurt catheter placed. Dr. Aparicio reviewed CT results, and recommended advancing her to weight bearing of the left leg as tolerated. PT and OT were consulted to work with patient and recommended short term rehabilitation. She was transferred to [facility] for ongoing rehabilitation. The hospitalist service will continue to follow her on [facility]. (2) UTI (urinary tract infection) Status: Acute Hospital Course & Plan: She had cloudy urine from catheter specimen, along with fever. Her urine showed large leukocyte esterase and WBC. Her urine culture E. coli. She was started on levofloxacin. (3) Hyponatremia Status: Acute Hospital Course & Plan: She was found to have a sodium of 125 upon admission. Sodium normalized with IV fluids. (4) Hypertension, benign Status: Chronic Hospital Course & Plan: She was on chronic treatment with amlodipine and losartan. The medications were restarted with hold parameters. (5) Hypothyroidism Status: Chronic Hospital Course & Plan: She was continued on chronic treatment with Levothyroxine. (6) Hypercholesterolemia Status: Chronic Hospital Course & Plan: She was continued on chronic treatment with Simvastatin. Departure Weight (Pounds): 136 Weight (Ounces): 6.0 Result Diagram: 09/15/17 0707 09/15/17 0707 [facility] LAB *LIVE* [address] [place] [address] ALEXIS CODY M.D., DIRECTOR OF LABORATORY SERVICES MORIAH NOEL M.D., PATHOLOGIST RUN DATE: 09/14/17 Specimen Inquiry Report PAGE 1 RUN TIME: 1019 PATIENT: MIGDALIA DIAZ ACCT: [id number] LOC: [facility] U : [id number] AGE/SX: 82/F ROOM: 2279 REG : 09/12/[address]: ISABELA LOPEZ MD : 1935 BED: 279 DIS : STATUS: ADM IN TLOC: SPEC #: [id number] FLAKITO: 09/12/17 STATUS: COMP REQ #: [id number] RECD: 09/12/[address] [facility] [address]: KELVIN PLATT [facility] SOURCE: LUZ ENTR: 09/12/[address] [facility] [address]: ISABELA LOPEZ MD SPDESC: KARLOS GREENE MD ORDERED: CULT URINE COMMENTS: Has specimen been collected/obtained? Y Procedure Result Verified URINE CULTURE Final 09/14/17-1019 Organism 1 ESCHERICHIA COLI >100,000 COL/ML ESC COLI M.I.C. RX --------- --- AMPICILLIN <=2 S AMPICILLIN/SULBACTAM <=2 S CEFAZOLIN <=4 S CEFTAZIDIME <=1 S CEFTRIAXONE <=1 S CEFEPIME <=1 S CEFOXITIN <=4 S ERTAPENEM <=0.5 S CIPROFLOXACIN <=0.25 S GENTAMICIN <=1 S IMIPENEM <=0.25 S LEVOFLOXACIN <=0.12 S NITROFURANTOIN <=16 S PIPERACILLIN/TAZOBACTAM <=4 S TOBRAMYCIN <=1 S TRIMETHOPRIM/SULFAMETHOXAZOLE <=20 S END OF REPORT Imaging Multiple imaging studies performed. See complete record for imaging reports. Condition: Improved Discharge: [facility] PT/OT Follow Up For: PT Evaluation and Treat, OT Evaluation and Treat Time Spent: < 30 min Discharge Instructions Home Meds Active Scripts Losartan Potassium (LOSARTAN POTASSIUM) 100 Mg Tablet, 1 TAB PO QDAY, #90 TAB 3 Refills Prov:KARLOS GREENE MD 09/05/17 Gabapentin (GABAPENTIN) 300 Mg Capsule, 300 MG PO TID Y for pain, #180 CAPSULE 4 Refills Prov:KARLOS GREENE MD 07/29/17 Levothyroxine Sodium (LEVOTHYROXINE SODIUM) 50 Mcg Tablet, 50 MCG PO QDAY, #90 TAB 4 Refills Prov:KARLOS GREENE MD 07/29/17 Simvastatin (SIMVASTATIN) 10 Mg Tablet, 10 MG PO HS, #90 TAB 3 Refills Prov:KARLOS GREENE MD 05/13/17 Amlodipine Besylate (AMLODIPINE BESYLATE) 5 Mg Tablet, 1 TAB PO QDAY, #90 TAB 4 Refills Prov:KARLOS GREENE MD 05/13/17 Tramadol Hcl (TRAMADOL HCL) 50 Mg Tablet, 50 MG PO QID Y for PAIN, #120 TAB 5 Refills Prov:KARLOS GREENE MD 05/13/17 Pantoprazole Sodium (PANTOPRAZOLE SODIUM) 40 Mg Tablet.dr, 40 MG PO QDAY, #90 TAB.SR 3 Refills Prov:KARLOS GREENE MD 11/14/16 Acetaminophen (ACETAMINOPHEN) 500 Mg Tablet, 500-1000 MG PO Q8H Y for PAIN for 30 Days, TAB Prov:ISABELA LOPEZ MD 11/10/16 Reported Medications Lactobacillus Acidophilus (PROBIOTIC) 1 Each Capsule, 1 EACH PO DAILY, CAPSULE 09/10/17 Cholecalciferol (Vitamin D3) (VITAMIN D3) 1,000 Unit Tablet, 1 TAB PO DAILY 12/22/13 Multivitamin (DAILY VITAMIN FORMULA) 1 Each Tablet, 1 TAB PO DAILY 12/22/13 Calcium Carbonate/Vitamin D3 (CALCIUM + VITAMIN D TABLET) 1 Each Tablet, 1 TAB PO DAILY 12/22/13 Discontinued Scripts Lidocaine (Lidocaine) 5 % Adh..patch, 1 EACH TP QDAY, #14 PATCH.24H 2 Refills Prov:ISABELA LOPEZ MD 11/10/16 Diet: Regular Special Instructions: Activity as per orthopedic surgery. Currently weight bearing L leg as tolerated. Copies to: MELCHOR APARICIO MD; KARLOS GREENE MD Venous Thromboembolism Antithrombotics Is Pt On Any Antithrombotics?: No Problem Qualifiers (1) Pelvis fracture: Encounter type: initial encounter (2) UTI (urinary tract infection): Urinary tract infection type: acute cystitis Hematuria presence: with hematuria Qualified Codes: N30.01 - Acute cystitis with hematuria ROBSON LOPEZ MD September 15, 2017 10:42
[2017-09-15 11:00] VITALS: BP 167/85
== END 2017-09-15 11:25 | DRG 536 ==
LOC: ER 10:58 → INTOOBSV 13:25 → MED 13:25 → OBSVTOIN 09-12
PROVIDERS: ADMIT Internal Medicine; ATTEND Internal Medicine
DX: S32.512A Fracture of superior rim of left pubis, initial encounter for closed fracture (principal); S32.10XA Unspecified fracture of sacrum, initial encounter for closed fracture; N30.01 Acute cystitis with hematuria; E87.1 Hypo-osmolality and hyponatremia; B96.20 Unspecified Escherichia coli [E. coli] as the cause of diseases classified elsewhere; I10 Essential (primary) hypertension; E03.9 Hypothyroidism, unspecified; E78.00 Pure hypercholesterolemia, unspecified; K21.9 Gastro-esophageal reflux disease without esophagitis; S32.592A Other specified fracture of left pubis, initial encounter for closed fracture; W01.0XXA Fall on same level from slipping, tripping and stumbling without subsequent striking against object, initial encounter; Y92.008 Other place in unspecified non-institutional (private) residence as the place of occurrence of the external cause; Y99.8 Other external cause status; Z88.0 Allergy status to penicillin; Z88.1 Allergy status to other antibiotic agents; Z88.2 Allergy status to sulfonamides; Z88.8 Allergy status to other drugs, medicaments and biological substances; Z90.12 Acquired absence of left breast and nipple; Z96.653 Presence of artificial knee joint, bilateral; Z96.641 Presence of right artificial hip joint
CPT/HCPCS: 36415; 71045; 72192; 81001; 82040; 82247; 82310; 82374; 82435; 82565; 82947; 84075; 84132; 84155; 84295; 84450; 84460; 84520; 85025; 85610; 87077; 87088; 87186; 94667; 94668; 97161; 97166; 99284; G0378; J1956; J2270; J7030

== ENCOUNTER → 2017-09-10 | Outpatient (CLI) | payer MEDICARE, BC ==
[~2017-09-10] MED LIST changes: +LACT1CAP4 PO
[2017-09-11 12:29] VITALS: BMI 26.6
== END ==
LOC: AMB 10:22
PROVIDERS: ATTEND Nurse Practitioner
DX: M25.552 Pain in left hip (principal); M25.512 Pain in left shoulder; W01.0XXA Fall on same level from slipping, tripping and stumbling without subsequent striking against object, initial encounter; Y92.019 Unspecified place in single-family (private) house as the place of occurrence of the external cause
CPT/HCPCS: A0425; A0427

== ENCOUNTER 2017-09-15 11:30 | Inpatient (IN) | payer MEDICARE, BC ==
[2017-09-11 12:29] VITALS: Ht 152.4 cm; Wt 57.7 kg
[~2017-09-15] VITALS: Ht 152.4 cm; Wt 57.7 kg
[~2017-09-15 11:30] MED LIST changes: +LACT1CAP4 PO
[2017-09-15 11:45] VITALS: BP 158/70
--- NOTE | 2017-09-15 11:51 | ECF H&P BLANK ---
[facility] H&P UPDATE History of Present Illness Chief Complaint Left hip pain History of Present Illness She presented to the emergency department with left hip pain. She reports she tripped over a floor mat at home and fell onto her left side last night. She states she was able to get herself into bed for the evening, but was not able to ambulate this morning. She denies any head or neck trauma. History Problems: (1) Hx of mastectomy Onset Date: 08/01/2014 Status: Chronic (2) Hypertension, benign Status: Chronic (3) Hypercholesterolemia Status: Chronic (4) Esophageal reflux Status: Chronic (5) Hypothyroidism Status: Chronic Home Meds Active Scripts Losartan Potassium (LOSARTAN POTASSIUM) 100 Mg Tablet, 1 TAB PO QDAY, #90 TAB 3 Refills Prov:KARLOS GREENE MD 09/05/17 Gabapentin (GABAPENTIN) 300 Mg Capsule, 300 MG PO TID Y for pain, #180 CAPSULE 4 Refills Prov:KARLOS GREENE MD 07/29/17 Levothyroxine Sodium (LEVOTHYROXINE SODIUM) 50 Mcg Tablet, 50 MCG PO QDAY, #90 TAB 4 Refills Prov:KARLOS GREENE MD 07/29/17 Simvastatin (SIMVASTATIN) 10 Mg Tablet, 10 MG PO HS, #90 TAB 3 Refills Prov:KARLOS GREENE MD 05/13/17 Amlodipine Besylate (AMLODIPINE BESYLATE) 5 Mg Tablet, 1 TAB PO QDAY, #90 TAB 4 Refills Prov:KARLOS GREENE MD 05/13/17 Tramadol Hcl (TRAMADOL HCL) 50 Mg Tablet, 50 MG PO QID Y for PAIN, #120 TAB 5 Refills Prov:KARLOS GREENE MD 05/13/17 Pantoprazole Sodium (PANTOPRAZOLE SODIUM) 40 Mg Tablet.dr, 40 MG PO QDAY, #90 TAB.SR 3 Refills Prov:KARLOS GREENE MD 11/14/16 Acetaminophen (ACETAMINOPHEN) 500 Mg Tablet, 500-1000 MG PO Q8H Y for PAIN for 30 Days, TAB Prov:ISABELA LOPEZ MD 11/10/16 Reported Medications Lactobacillus Acidophilus (PROBIOTIC) 1 Each Capsule, 1 EACH PO DAILY, CAPSULE 09/10/17 Cholecalciferol (Vitamin D3) (VITAMIN D3) 1,000 Unit Tablet, 1 TAB PO DAILY 12/22/13 Multivitamin (DAILY VITAMIN FORMULA) 1 Each Tablet, 1 TAB PO DAILY 12/22/13 Calcium Carbonate/Vitamin D3 (CALCIUM + VITAMIN D TABLET) 1 Each Tablet, 1 TAB PO DAILY 12/22/13 Discontinued Scripts Lidocaine (Lidocaine) 5 % Adh..patch, 1 EACH TP QDAY, #14 PATCH.24H 2 Refills Prov:ISABELA LOPEZ MD 11/10/16 Allergies: Coded Allergies: Sulfa (Sulfonamide Antibiotics) (Verified Allergy, Intermediate, 09/10/17) sulfamethoxazole (Verified Allergy, Intermediate, 09/10/17) Flushing of face, Rash to entire body. trimethoprim (Verified Allergy, Intermediate, 09/10/17) Flushing of face, Rash to entire body. Penicillins (Verified Allergy, Mild, 09/10/17) MIKE Inhibitors (Unverified Allergy, Unknown, COUGH, 09/10/17) NSAIDS (Non-Steroidal Anti-Inflamma (Unverified Allergy, Unknown, UNKNOWN , 09/10/17) cephalexin (Unverified Allergy, Unknown, UNKNOWN, 09/10/17) erythromycin base (Unverified Allergy, Unknown, UNKNOWN, 09/10/17) spironolactone (Unverified Allergy, Unknown, UNKNOWN, 09/10/17) Patient History: FH: CHF (congestive heart failure) MOTHER, , Age:79 FH: breast cancer 1ST COUSIN, FH: multiple myeloma BROTHER OR SISTER Unknown FATHER Hx Smoking: No Smoking Status: Never Smoker Hx Alcohol Use: Yes Hx Substance Use Disorder: No Social Drug Use: Never Review of Systems All Systems Reviewed/Normal: Yes, Except as Noted Musculoskeletal: Pain (left hip) Exam Vital Signs Vital Signs Date Time Temp Pulse Resp B/P (MAP) Pulse Ox O2 Delivery O2 Flow Rate FiO2 09/10/17 14:00 152/71 (98) 09/10/17 13:35 65 96 09/10/17 10:53 97.7 General Appearance: Alert, Awake, No Acute Distress, Afebrile Neuro: No Gross deficits Cardiovascular: Regular Rate and Rhythm Respiratory: No Respiratory Distress, Clear to Auscultation GI: Abd Soft and Non-Tender Extremities: Perfused, No Edema Psych: Alert & Oriented X3, Appropriate Mood & Affect Assessment and Plan Problems: (1) Pelvis fracture Status: Acute Assessment & Plan: She was admitted for pelvis fracture. CT of pelvis noted a nondisplaced fracture of the left sacrum and a mildly displaced fracture to the superior and inferior rami. She will be given IV and oral pain medication. She will get a Hurt catheter to help with urination. She will get her labs checked today. At this time, we will keep her non-weight bearing on the left leg. We will order PT and OT evaluation. (2) Hypertension, benign Status: Chronic Assessment & Plan: She is on chronic treatment with Amlodipine and Losartan. The medications were started with hold parameters. (3) Hypothyroidism Status: Chronic Assessment & Plan: She is on chronic treatment with Levothyroxine. (4) Hypercholesterolemia Status: Chronic Assessment & Plan: She is on chronic treatment with Simvastatin. Venous Thromboembolism Antithrombotics Is Pt On Any Antithrombotics?: No Exam Sepsis Risk: No Definite Risk Problem Qualifiers (1) Pelvis fracture: Encounter type: initial encounter KELVIN PLATT September 10, 2017 15:43 <Electronically signed by CASSIE ALDANA> D/ [id number] JOHN/SHELBY CC: The above acute care issues are resolving and/or stable. Patient requires halfway and/or skilled rehabilitation and is ready for admission to Extended Care. ROBSON LOPEZ MD September 15, 2017 11:51
[2017-09-15] MEDS ORDERED: MAGNESIUM HYDROXIDE* 30ML UDCP PO PRN (11:52)
[2017-09-15] MEDS ORDERED: LEVOTHYROXINE SOD 0.05 MG TAB PO SCH (11:52)
[2017-09-15] MEDS ORDERED: BISACODYL 10 MG SUPP PR PRN (11:52)
[2017-09-15] MEDS ORDERED: LEVOFLOXACIN 500 MG TAB PO SCH (11:52)
[2017-09-15] MEDS ORDERED: GABAPENTIN 300 MG CAP PO PRN ×2 (11:52→13:45)
--- NOTE | 2017-09-15 13:25 | Consultant Pharmacy Review ---
Bin Filler Review Medication Review Do All Mecications have a Diag: Yes Beers Criteria Medication 2014 Proton Pump Inhibitors: Pantoprazole (Use for the shortest time possible.. it may increase fracture risk.) Pneumococcal Vaccine HX Pneumo Vac ([id number]): Yes (january 2015) HX Pneumo Vac (Pneumovax): Yes (2016) ROBSON VALENTIN September 15, 2017 13:25
--- NOTE | 2017-09-15 13:36 | Consultant Pharmacy Review ---
Cutter Hand Review Medication Review Do All Mecications have a Diag: Yes Beers Criteria Medication 2014 Proton Pump Inhibitors: Pantoprazole Other General Cautions Patient is up to date with pneumococcal and influenza vaccines. Labs: Annual TSH; periodic electrolyte levels, LFTs,. Pneumococcal Vaccine HX Pneumo Vac ([id number]): Yes (january 2015) HX Pneumo Vac (Pneumovax): Yes (2016) Comments Regarding the Review * Magnesium Hydroxide (Antacids) D Levaquin (Quinolones) Magnesium Hydroxide (Antacids) Depends on Route D Levaquin (Quinolones) Magnesium Hydroxide (Magnesium Salts) Depends on Route D Levothyroxine Magnesium Hydroxide (Magnesium Salts) Depends on Route D Lortab (HYDROcodone) Neurontin ([employer] Depressants) D Magnesium Hydroxide (Antacids) Neurontin (Gabapentin) D Magnesium Hydroxide (Magnesium Salts) Neurontin (Gabapentin) Depends on Route D Norvasc (AmLODIPine) Zocor (Simvastatin) Depends on Dose C Cozaar (Angiotensin II Receptor Blockers) Potassium Chloride (Potassium Salts) C Magnesium Hydroxide (Magnesium Salts) Norvasc (Calcium Channel Blockers) B Cozaar (Angiotensin II Receptor Blockers) Levaquin (Quinolones) B Levothyroxine (Thyroid Products) Protonix (Proton Pump Inhibitors) ROBSON VALENTIN September 15, 2017 13:36
--- NOTE | 2017-09-15 15:48 | PT ECF NOTE ---
Type of Note: Initial Note Primary Medical Diagnosis: Nondisplaced fracture of the left sacrum, mildly displaced fracture to the superior and inferior rami on the L), Rotator cuff tear of the L) shoulder, UTI Physical Therapy Evaluation Date: 09/15/17 SUBJECTIVE: Prior Hospitalization: [facility] 09/12/17-09/15/17 Prior Level of Function: Sam with no AD, pt does report previous falls Prior Living Status: Multilevel house, Spouse Community Services: No known needs Home Accessibility: 7 stairs with railing to enter, 15 stairs to access bedroom Equipment Owned: Front wheeled walker, Cane Medical Complications/Past Medical History: previous R) rotator cuff injury, see EMR for all details Psychosocial Support: Supportive Pain Scale (0-10): 2.5/10 WB Status: WBAT L) LE, WBAT L) UE OBJECTIVE: Strength: Right Lower Extremity: DF: 4/5 Knee flexion: 4/5 Knee extension: 4/5 Hip flexion: 4/5 Left Lower Extremity: DF: 4/5 Knee flexion: 3+/5 Knee extension: 3+/5 Hip flexion: <3/5 ROM: L) LE AROM limited by pain, L) UE AROM limited as well (not formally assessed) Sensation: WNL Other Neuro findings: None Noted Bed Mobility: NT, pt up in chair and requested to remain in chair at end of session Transfers: Aliza with RW Gait: ModA x1 with RW x3' Stairs: NT Timed Up and Go (>12 seconds indicated increased risk for falls): Pt unable 10 meter walk test (0.6m/second cannot function independently): Pt unable ASSESSMENT: PT ECF eval complete. Pt able to rise to stand with CGA and use of RW. PT provided step by step cues for stand pivot transfer from bed to chair with use of RW. Pt unable to fully lift LEs independently, but did slide them on the floor to effectively complete pivot transfer. Aliza provided for walker negotiation with transfer. Pt requires modA for L) LE advancement and L) knee block with gait. Pt with no instances of knee buckling today with short distance ambulation alongside the bed, but she is unable to I)ly advance the L) LE. Val will benefit from skilled PT intervention in order to increase independence with functional mobility and decrease need of assistance from others in order to maximize safety prior to d/c. Problem List/Current Limitations: Pain Decreased activity erbecca Decreased strength Decreased balance Generalized weakness Short Term Goals: 1: Pt to complete bed mobility with Sam 2: Pt to complete transfers with Sam and least restrictive AD 3: Pt to ambulate 100' with Sam and least restrictive AD 4: Pt to asc/desc a flight of stairs with SBA Code Machine Operator Goals: Pt to discharge to safest discharge location with a decreased need of assistance from others Patient Goals: Pt would like to d/c home Rehabilitation Prognosis: Fair Barriers for Discharge: New L) rotator cuff tear limiting active use of UE, multiple flights of stairs at home, previous h/o falls PLAN: The patient will benefit from skilled physical therapy services 5 times per week for 2 weeks including: Therapeutic Exercise Therapeutic Activities Transfer Training Gait Training Stair Training Manual Therapy Safety Training Neuromuscular Re-educ. Pt/Caregiver Training Bed Mobility Thank you for this referral. If you have any questions, concerns, or comments about this report or plan, please contact me at . Cha Mercado, PT, DPT MTDD
[2017-09-15 16:25] VITALS: BP 159/81
[2017-09-15] MEDS: POTASSIUM CHL 10 MEQ TABCR PO SCH (17:32)
[2017-09-15] MEDS: DOCUSATE SODIUM 100 MG CAP PO SCH (20:20)
[2017-09-15] MEDS: SIMVASTATIN 20 MG TAB PO SCH (20:20)
[2017-09-15] MEDS: APAP/HYDROCODONE 325/5 TAB PO PRN (20:21)
[2017-09-16] MEDS: LEVOTHYROXINE SOD 0.05 MG TAB PO SCH (05:59)
[2017-09-16] MEDS: DOCUSATE SODIUM 100 MG CAP PO SCH ×2 (08:54→20:27)
[2017-09-16] MEDS: PANTOPRAZOLE SOD 40 MG TABEC PO SCH (08:54)
[2017-09-16] MEDS: APAP/HYDROCODONE 325/5 TAB PO PRN ×2 (08:54→20:32)
[2017-09-16] MEDS: LOSARTAN POTASSIUM 50 MG TAB PO SCH (08:54)
[2017-09-16] MEDS: POLYETHYLENE GLYCOL 17 GM PKT PO SCH (08:55)
[2017-09-16] MEDS: amLODIPine BESYL(*) 5 MG TAB PO SCH (08:55)
[2017-09-16] MEDS: POTASSIUM CHL 10 MEQ TABCR PO SCH ×2 (08:55→17:44)
[2017-09-16 08:59] VITALS: BP 142/72
--- NOTE | 2017-09-16 09:12 | Medical Nutrition Therapy ---
Nutrition Anthropometrics Height (Inches): 60 Weight (Pounds): 135 Weight (Calculated Kilograms): 61.433 BMI: 26 Natanael Nutrition Score: Adequate Natanael Nutrition Risk Score: 16 Dietary Referral Nutrition Risk Factors: Nutrition Risk Comment: Physical Findings Physical Appearance: BMI WNR Skin Appearance Skin Appearance: Edema Edema Location Modifier: Edema Location: Type of Edema: Degree of Edema: Gastrointestinal Symptoms GI Symtoms: Constipation Tube Present: Bowel Sounds: Recent Bowel Pattern: Constipated Stool Characteristics: Nutritional Diagnosis Nutritional Risk Acuity 3: Fair Appetite, Fx & > 80 yrs Past Medical History: HX of Hypothyroidism, Increased MCV, HTN, Malignant neoplasm of breast, Hypercholesterolemia, Esophageal reflux, mastectomy Nutritional Acuity: 3-Mild Energy Requirement: 1305 ([place]-St Jeor X 1/3 SF) Protein Requirement: 73 (1.2gm/kg) Fluid Requirement: 1525 (25ml/kg) Diet Type: Diet as Tolerated KISHOR/REG Nutrition Intervention: Cont diet as ordered, Encourage intake, HS snack Optional Order Time?: No (inform nursing of mealtimes- on med taken on empty stomach) Nutrition Monitoring & Eval Nutrition Goals: Eat 75-100% Meal RD Patient Assessment Time: [address] Assessment Type: RD Assessment Patient Nutrition Acuity: 3-Mild Follow Up Date: Sep 23, 2017 Nutritional Comment: 09/16 Pt admitted s/p hip fx. Pt refused first meal in facility but ate 100% of dinner meal. Pt had been eating 50- 100% of meals on med unit. Alb3. Will cont to monitor and encourage intake. LEXY DALTON September 16, 2017 09:11
[2017-09-16] MEDS: LEVOFLOXACIN 500 MG TAB PO SCH (11:06)
--- NOTE | 2017-09-16 12:57 | OT ECF NOTE ---
Type of Note: Initial Note Primary Medical Diagnosis: Generalized weakness s/p nondisplaced fracture of the left sacrum, mildly displaced fracture to the superior and inferior rami on the L), Rotator cuff tear of the L) shoulder, UTI. *Per orthopedic consult, pt has no restrictions. She is WBAT L LE and L UE* Occupational Therapy Evaluation Date: 09/16/17 SUBJECTIVE: Prior Hospitalization: [facility] 09/10/17 thru 09/15/17 Prior Level of Function: Mod (I) for ADLs. Assist from spouse for IADLs ( cooking) and a lady that assists with cleaning. Pt reports hx of frequent falls. Prior Living Status: Multilevel house, Spouse Community Services: No known needs Home Accessibility: Stairs with rails-5 steps to get to porch, 15 steps to access area of home where she spends the most time. Pt agreeable to consider a first floor set-up if necessary. Walk-in shower Equipment Owned: Front wheeled walker Cane Shower chair Medical Complications/Past Medical History: Hx of right RTC repair, hx of breast cancer and left mastectomy, HTN, hypothyroidism, hypercholesterolemia Psychosocial Support: Supportive spouse "Rolando" Pain Scale (0-10): 3/10-primarily in L LE. No complaints of L UE pain with use for mobility and ADLs OBJECTIVE: Strength: Not tested secondary to limited in ROM in B UE, pain in LE UE ( secondary to massive RTC tear) ROM: Both upper extremities, Moderately limited Functional Transfer: Assistive Device: Front wheeled walker Transfer Ability: 1-person assist, Moderate assistance. Pt requires assist to sequence ambulation, negotiate RW, and advance L LE. No complaints of pain in L UE with use of RW. ADL: Upper body dressing: Assistive device: None Upper body dressing ability: Moderate assistance Lower body dressing: Assistive device: May benefit from LB AE education Lower body dressing ability: Moderate assistance Toileting: Assistive device: Raised toilet seat Toileting ability: Moderate assistance Grooming/hygiene: Assistive device: Grooming ability: N/T Bathing: Assistive device: Shower chair Bathing ability: Moderate assistance Standardized Assessment: Candida Index of Activities of Daily Livin/20 upon initial evaluation (). ASSESSMENT: Val presents to [facility] requiring significant assist for ADLs and inability to ambulate functional distances. At [facility], she was (I) with ADLs and ambulation. Currently, she requires Mod A for ADLs and Mod A to ambulate x4ft. Val will benefit from skilled OT services to optimize (I) with ADLs and improve mobility prior to discharge to multi-level home with spouse. Problem List/Current Limitations: Pain Decreased activity tolerance Decreased strength Decreased ROM Generalized weakness Poor safety awareness Short Term Goals: 1) Pt will be SBA UB/LB dressing. 2) Pt will be SBA toilet task. 3) Pt will be SBA grooming/hygiene seated. 4) Pt will be Min A shower task. 5) Pt will be educated on appropriate AE recommendations. 6) Pt Candida Index of ADLs score will improve by 2 points. Salesman/Owner Goals: Return to least restrictive environment Patient Goals: Return home with spouse Rehabilitation Prognosis: Good Barriers to Discharge: Pain, hx of frequent falls PLAN: The patient will benefit from skilled occupational therapy services 5 times per week for 2 weeks including: Ther ex ADL training Safety training Ther act IADL training Transfer training Adaptive equip training Bed mobility Energy conservation Thank you for this referral. If you have any questions, concerns, or comments about this report or plan, please contact me at . Natalie Mike MS, OTR/L Occupational Therapist [place]
[2017-09-16 15:55] VITALS: BP_SYST 143
[2017-09-16] MEDS: SIMVASTATIN 20 MG TAB PO SCH (20:27)
[2017-09-16] MEDS: CARBAMIDE PEROX 6.5% OT SOLN EACH EAR SCH (20:27)
[2017-09-17] MEDS: LEVOTHYROXINE SOD 0.05 MG TAB PO SCH (05:45)
[2017-09-17 08:00] VITALS: BP 145/73
[2017-09-17] MEDS: APAP/HYDROCODONE 325/5 TAB PO PRN ×2 (08:05→20:27)
[2017-09-17] MEDS: POLYETHYLENE GLYCOL 17 GM PKT PO SCH (08:45)
[2017-09-17] MEDS: DOCUSATE SODIUM 100 MG CAP PO SCH ×2 (08:46→20:28)
[2017-09-17] MEDS: PANTOPRAZOLE SOD 40 MG TABEC PO SCH (08:46)
[2017-09-17] MEDS: POTASSIUM CHL 10 MEQ TABCR PO SCH ×2 (08:46→17:00)
[2017-09-17] MEDS: CARBAMIDE PEROX 6.5% OT SOLN EACH EAR SCH ×2 (08:47→20:28)
[2017-09-17] MEDS: LOSARTAN POTASSIUM 50 MG TAB PO SCH (08:49)
[2017-09-17] MEDS: amLODIPine BESYL(*) 5 MG TAB PO SCH (08:49)
[2017-09-17] MEDS: LEVOFLOXACIN 500 MG TAB PO SCH (10:16)
--- NOTE | 2017-09-17 14:55 | Hospitalist Progress Note ---
Subjective Progress Notes Subjective No new complaints. Has chronic diarrhea and takes a probiotic at home. Would like to take one here. Physical Exam Vital Signs Date Time Temp Pulse Resp B/P (MAP) Pulse Ox O2 Delivery O2 Flow Rate FiO2 09/17/17 10:51 94 Room Air 09/17/17 08:00 97.1 71 13 145/73 (97) Intake and Output 09/18/17 07:00 Intake Total 120 ml Balance 120 ml Intake Oral 120 ml # Voids 1 # Bowel Movements 3 General Appearance: Alert, Awake, No Acute Distress, Afebrile Neuro: No Gross deficits Cardiovascular: Regular Rate and Rhythm Respiratory: Clear to Auscultation GI: Soft and Non-Tender Extremities: Warm, Perfused, Other (No edema.) Integumentary: Generalized Fragile Skin Psych: Appropriate Mood & Affect Assessment and Plan Problems: (1) Pelvis fracture Status: Acute Assessment & Plan: She was admitted for pelvis fracture and inability to ambulate. CT of pelvis noted a nondisplaced fracture of the left sacrum and a mildly displaced fracture to the superior and inferior rami. She was initially placed on IV and oral pain medication. She had a Bansal catheter placed. Dr. Aparicio reviewed CT results, and recommended advancing her to weight bearing of the left leg as tolerated. PT and OT were consulted to work with patient and recommended short term rehabilitation. She was transferred to [facility] for ongoing rehabilitation. On ECF the patient's bansal was discontinued. She remains on oral pain medication. She is working well with PT/OT. (2) UTI (urinary tract infection) Status: Acute Assessment & Plan: She had cloudy urine from catheter specimen, along with fever. Her urine showed large leukocyte esterase and WBC. Her urine culture grew E. coli. She was started on levofloxacin. (3) Hyponatremia Status: Acute Assessment & Plan: She was found to have a sodium of 125 upon admission. Sodium normalized with IV fluids. (4) Hypertension, benign Status: Chronic Assessment & Plan: She was on chronic treatment with amlodipine and losartan. The medications were restarted with hold parameters. (5) Hypothyroidism Status: Chronic Assessment & Plan: She has been continued on chronic treatment with Levothyroxine. (6) Hypercholesterolemia Status: Chronic Assessment & Plan: She has been continued on chronic treatment with Simvastatin. Time Spent on Plan of Care: < 30 min ROBSON LOPEZ MD September 17, 2017 14:55
[2017-09-17] MEDS: LACTOBACILLUS ACIDOPHILUS TAB PO SCH (15:35)
[2017-09-17 16:15] VITALS: BP 123/69
[2017-09-17] MEDS: SIMVASTATIN 20 MG TAB PO SCH (20:27)
[2017-09-18] MEDS: LEVOTHYROXINE SOD 0.05 MG TAB PO SCH (05:48)
[2017-09-18 07:35] VITALS: BP 144/74
[2017-09-18] MEDS: amLODIPine BESYL(*) 5 MG TAB PO SCH (08:40)
[2017-09-18] MEDS: POTASSIUM CHL 10 MEQ TABCR PO SCH ×2 (08:40→17:00)
[2017-09-18] MEDS: LACTOBACILLUS ACIDOPHILUS TAB PO SCH (08:40)
[2017-09-18] MEDS: PANTOPRAZOLE SOD 40 MG TABEC PO SCH (08:40)
[2017-09-18] MEDS: LOSARTAN POTASSIUM 50 MG TAB PO SCH (08:40)
[2017-09-18] MEDS: CARBAMIDE PEROX 6.5% OT SOLN EACH EAR SCH ×2 (08:41→20:19)
[2017-09-18] MEDS: DOCUSATE SODIUM 100 MG CAP PO SCH ×2 (08:41→20:19)
[2017-09-18] MEDS: POLYETHYLENE GLYCOL 17 GM PKT PO SCH (08:41)
[2017-09-18] MEDS: APAP/HYDROCODONE 325/5 TAB PO PRN ×2 (08:53→20:19)
[2017-09-18] MEDS: LEVOFLOXACIN 500 MG TAB PO SCH (11:23)
[2017-09-18 20:10] VITALS: BP 138/78
[2017-09-18] MEDS: SIMVASTATIN 20 MG TAB PO SCH (20:19)
[2017-09-19] MEDS: LEVOTHYROXINE SOD 0.05 MG TAB PO SCH (05:32)
[2017-09-19 07:30] VITALS: BP 154/66
[2017-09-19] MEDS: POLYETHYLENE GLYCOL 17 GM PKT PO SCH (09:00)
[2017-09-19] MEDS: APAP/HYDROCODONE 325/5 TAB PO PRN ×2 (09:14→20:49)
[2017-09-19] MEDS: PANTOPRAZOLE SOD 40 MG TABEC PO SCH (09:14)
[2017-09-19] MEDS: DOCUSATE SODIUM 100 MG CAP PO SCH ×2 (09:15→20:43)
[2017-09-19] MEDS: CARBAMIDE PEROX 6.5% OT SOLN EACH EAR SCH ×2 (09:15→20:49)
[2017-09-19] MEDS: amLODIPine BESYL(*) 5 MG TAB PO SCH (09:15)
[2017-09-19] MEDS: LOSARTAN POTASSIUM 50 MG TAB PO SCH (09:15)
[2017-09-19] MEDS: POTASSIUM CHL 10 MEQ TABCR PO SCH ×2 (09:16→17:04)
[2017-09-19] MEDS: LACTOBACILLUS ACIDOPHILUS TAB PO SCH (09:16)
[2017-09-19] MEDS: LEVOFLOXACIN 500 MG TAB PO SCH (09:17)
[2017-09-19 15:26] VITALS: BP 135/69
[2017-09-19] MEDS: SIMVASTATIN 20 MG TAB PO SCH (20:48)
[2017-09-20] MEDS: LEVOTHYROXINE SOD 0.05 MG TAB PO SCH (06:00)
[2017-09-20 07:00] VITALS: BP 145/71
[2017-09-20] MEDS: LACTOBACILLUS ACIDOPHILUS TAB PO SCH (08:39)
[2017-09-20] MEDS: LOSARTAN POTASSIUM 50 MG TAB PO SCH (08:39)
[2017-09-20] MEDS: POTASSIUM CHL 10 MEQ TABCR PO SCH ×2 (08:39→16:31)
[2017-09-20] MEDS: DOCUSATE SODIUM 100 MG CAP PO SCH ×2 (08:40→20:39)
[2017-09-20] MEDS: amLODIPine BESYL(*) 5 MG TAB PO SCH (08:40)
[2017-09-20] MEDS: CARBAMIDE PEROX 6.5% OT SOLN EACH EAR SCH ×2 (08:41→20:39)
[2017-09-20] MEDS: PANTOPRAZOLE SOD 40 MG TABEC PO SCH (08:41)
[2017-09-20] MEDS: APAP/HYDROCODONE 325/5 TAB PO PRN ×2 (08:41→20:39)
[2017-09-20] MEDS: POLYETHYLENE GLYCOL 17 GM PKT PO SCH (09:00)
[2017-09-20] MEDS: LEVOFLOXACIN 500 MG TAB PO SCH (09:46)
[2017-09-20 16:30] VITALS: BP 122/63
[2017-09-20] MEDS: SIMVASTATIN 20 MG TAB PO SCH (20:39)
[2017-09-21] MEDS: LEVOTHYROXINE SOD 0.05 MG TAB PO SCH (06:07)
[2017-09-21 07:35] VITALS: BP 150/77
[2017-09-21] MEDS: APAP/HYDROCODONE 325/5 TAB PO PRN ×3 (07:40→22:10)
[2017-09-21] MEDS: LOSARTAN POTASSIUM 50 MG TAB PO SCH (08:48)
[2017-09-21] MEDS: DOCUSATE SODIUM 100 MG CAP PO SCH ×2 (08:48→21:11)
[2017-09-21] MEDS: POTASSIUM CHL 10 MEQ TABCR PO SCH ×2 (08:48→17:14)
[2017-09-21] MEDS: LACTOBACILLUS ACIDOPHILUS TAB PO SCH (08:48)
[2017-09-21] MEDS: PANTOPRAZOLE SOD 40 MG TABEC PO SCH (08:49)
[2017-09-21] MEDS: amLODIPine BESYL(*) 5 MG TAB PO SCH (08:49)
[2017-09-21] MEDS: CARBAMIDE PEROX 6.5% OT SOLN EACH EAR SCH ×2 (08:51→21:00)
[2017-09-21] MEDS: POLYETHYLENE GLYCOL 17 GM PKT PO SCH (08:51)
[2017-09-21] MEDS: LEVOFLOXACIN 500 MG TAB PO SCH (10:31)
[2017-09-21 15:20] VITALS: BP 131/43
[2017-09-21] MEDS: SIMVASTATIN 20 MG TAB PO SCH (21:11)
[2017-09-22] MEDS: LEVOTHYROXINE SOD 0.05 MG TAB PO SCH (05:55)
[2017-09-22 07:40] VITALS: BP 128/68
[2017-09-22] MEDS: LOSARTAN POTASSIUM 50 MG TAB PO SCH (08:48)
[2017-09-22] MEDS: amLODIPine BESYL(*) 5 MG TAB PO SCH (08:49)
[2017-09-22] MEDS: DOCUSATE SODIUM 100 MG CAP PO SCH ×2 (08:50→20:58)
[2017-09-22] MEDS: POTASSIUM CHL 10 MEQ TABCR PO SCH ×2 (08:50→17:37)
[2017-09-22] MEDS: LACTOBACILLUS ACIDOPHILUS TAB PO SCH (08:50)
[2017-09-22] MEDS: PANTOPRAZOLE SOD 40 MG TABEC PO SCH (08:51)
[2017-09-22] MEDS: POLYETHYLENE GLYCOL 17 GM PKT PO SCH (08:51)
[2017-09-22] MEDS: APAP/HYDROCODONE 325/5 TAB PO PRN ×3 (08:51→20:58)
[2017-09-22] MEDS: CARBAMIDE PEROX 6.5% OT SOLN EACH EAR SCH (08:51)
[2017-09-22] MEDS: LEVOFLOXACIN 500 MG TAB PO SCH (09:33)
[2017-09-22] MEDS ORDERED: CARBAMIDE PEROX 6.5% OT SOLN EACH EAR PRN (11:00)
--- NOTE | 2017-09-22 15:01 | Medical Nutrition Therapy ---
Nutrition Anthropometrics Height (Inches): 60 Weight (Pounds): 135 Weight (Calculated Kilograms): 61.433 BMI: 26 Natanael Nutrition Score: Probably Inadequate Natanael Nutrition Risk Score: 17 Dietary Referral Nutrition Risk Factors: Nutrition Risk Comment: Physical Findings Physical Appearance: BMI WNR Skin Appearance Skin Appearance: Edema Edema Location Modifier: Edema Location: Type of Edema: Degree of Edema: Gastrointestinal Symptoms GI Symtoms: Change in Bowel Pattern Tube Present: Bowel Sounds: Recent Bowel Pattern: Constipated Stool Characteristics: Nutritional Diagnosis Nutritional Risk Acuity 3: Fair Appetite, Fx & > 80 yrs Past Medical History: HX of Hypothyroidism, Increased MCV, HTN, Malignant neoplasm of breast, Hypercholesterolemia, Esophageal reflux, mastectomy Nutritional Acuity: 3-Mild Nutrition Diagnosis: Increased Nutrient Needs Nutrition Etiology: Physiological Causes Nutrition Problem/Etiology/Sym: Increase nutrient needs related to physiological causes AEB weakness and fx > 80 yrs old. Energy Requirement: 1305 ([place]-St Jeor X 1/3 SF) Protein Requirement: 73 (1.2gm/kg) Fluid Requirement: 1525 (25ml/kg) Diet Type: Diet as Tolerated KISHOR/REG Nutrition Intervention: Cont diet as ordered, Encourage intake, HS snack Food Dislikes: no breakfast please unless she asks for it. Optional Order Time?: No (inform nursing of mealtimes- on med taken on empty stomach) Diet Comment To RSA: PT REQUEST NO BREAKFAST Nutrition Monitoring & Eval RD Patient Assessment Time: [address] Assessment Type: RD Assessment Patient Nutrition Acuity: 3-Mild Follow Up Date: Sep 30, 2017 Nutritional Comment: 09/16 Pt admitted s/p hip fx. Pt refused first meal in facility but ate 100% of dinner meal. Pt had been eating 50- 100% of meals on med unit. Alb3. Will cont to monitor and encourage intake. BK 09/22 Pt continues on KISHOR/REG with 100% oral intake. No new lab values at this time. Pt is working with OT and PT to help regain her strength. Per doctor now (09/17) No new complaints. Has chronic diarrhea. Pt is on PO probiotic that was ordered yesterday. Continue to monitor pt progress and encourage intake. KEVIN MARTÍN ROACH Sep 22, 2017 08:46
[2017-09-22 15:30] VITALS: BP 116/66
[2017-09-22] MEDS: SIMVASTATIN 20 MG TAB PO SCH (20:58)
[2017-09-23] MEDS: LEVOTHYROXINE SOD 0.05 MG TAB PO SCH (05:40)
[2017-09-23 07:25] VITALS: BP 151/75
[2017-09-23] MEDS: POTASSIUM CHL 10 MEQ TABCR PO SCH ×2 (07:39→17:30)
[2017-09-23] MEDS: APAP/HYDROCODONE 325/5 TAB PO PRN ×2 (07:39→20:28)
[2017-09-23] MEDS: POLYETHYLENE GLYCOL 17 GM PKT PO SCH (09:00)
[2017-09-23] MEDS: DOCUSATE SODIUM 100 MG CAP PO SCH ×2 (09:07→20:28)
[2017-09-23] MEDS: LOSARTAN POTASSIUM 50 MG TAB PO SCH (09:07)
[2017-09-23] MEDS: PANTOPRAZOLE SOD 40 MG TABEC PO SCH (09:07)
[2017-09-23] MEDS: amLODIPine BESYL(*) 5 MG TAB PO SCH (09:07)
[2017-09-23] MEDS: LACTOBACILLUS ACIDOPHILUS TAB PO SCH (09:07)
[2017-09-23 17:10] VITALS: BP 139/79
[2017-09-23] MEDS: SIMVASTATIN 20 MG TAB PO SCH (20:28)
[2017-09-24] MEDS: APAP/HYDROCODONE 325/5 TAB PO PRN ×2 (04:38→19:54)
[2017-09-24] MEDS: LEVOTHYROXINE SOD 0.05 MG TAB PO SCH (05:50)
[2017-09-24] MEDS: POTASSIUM CHL 10 MEQ TABCR PO SCH ×2 (08:01→17:15)
[2017-09-24] MEDS: LOSARTAN POTASSIUM 50 MG TAB PO SCH ×2 (09:00→09:14)
[2017-09-24] MEDS: POLYETHYLENE GLYCOL 17 GM PKT PO SCH (09:00)
[2017-09-24 09:01] VITALS: BP 132/77
[2017-09-24] MEDS: LACTOBACILLUS ACIDOPHILUS TAB PO SCH (09:13)
[2017-09-24] MEDS: DOCUSATE SODIUM 100 MG CAP PO SCH ×2 (09:13→19:54)
[2017-09-24] MEDS: PANTOPRAZOLE SOD 40 MG TABEC PO SCH (09:14)
[2017-09-24] MEDS: amLODIPine BESYL(*) 5 MG TAB PO SCH (09:14)
--- NOTE | 2017-09-24 14:52 | Hospitalist Progress Note ---
Subjective Progress Notes Subjective No new complaints. Physical Exam Vital Signs Date Time Temp Pulse Resp B/P (MAP) Pulse Ox O2 Delivery O2 Flow Rate FiO2 09/24/17 09:01 97.0 75 16 132/77 (95) 97 Room Air 09/20/17 07:00 0.5 Intake and Output 09/25/17 06:59 Intake Total 480 ml Balance 480 ml Intake Oral 480 ml # Voids 2 # Bowel Movements 1 General Appearance: Alert, Awake, No Acute Distress Neuro: No Gross deficits Eyes: PERRLA Cardiovascular: Regular Rate and Rhythm Respiratory: Clear to Auscultation GI: Soft and Non-Tender Extremities: Warm, Perfused, Other (No edema.) Integumentary: Other (Bruising of R hand.) Psych: Alert & Oriented X3, Appropriate Mood & Affect Assessment and Plan Problems: (1) Pelvis fracture Status: Acute Assessment & Plan: She was admitted for pelvis fracture and inability to ambulate. CT of pelvis noted a nondisplaced fracture of the left sacrum and a mildly displaced fracture to the superior and inferior rami. She was initially placed on IV and oral pain medication. She had a Bansal catheter placed. Dr. Aparicio reviewed CT results, and recommended advancing her to weight bearing of the left leg as tolerated. PT and OT were consulted to work with patient and recommended short term rehabilitation. She was transferred to [facility] for ongoing rehabilitation. On ECF the patient's bansal was discontinued. She remains on oral pain medication. She is working well with PT/OT and making progress per therapy notes. (2) UTI (urinary tract infection) Status: Acute Assessment & Plan: She had cloudy urine from catheter specimen, along with fever. Her urine showed large leukocyte esterase and WBC. Her urine culture grew E. coli. She completed a 5 day course of levofloxacin. (3) Hyponatremia Status: Acute Assessment & Plan: She was found to have a sodium of 125 upon admission. Sodium normalized with IV fluids. (4) Hypertension, benign Status: Chronic Assessment & Plan: She was on chronic treatment with amlodipine and losartan. The medications were restarted with hold parameters. (5) Hypothyroidism Status: Chronic Assessment & Plan: She has been continued on chronic treatment with Levothyroxine. (6) Hypercholesterolemia Status: Chronic Assessment & Plan: She has been continued on chronic treatment with Simvastatin. (7) Hypokalemia Status: Acute Assessment & Plan: Potassium was low at 3.2 on admission. Will repeat BMP and DC potassium if she has normalized. Time Spent on Plan of Care: < 30 min ROBSON LOPEZ MD Sep 24, 2017 14:52
[2017-09-24 16:50] VITALS: BP 143/73
[2017-09-24] MEDS: SIMVASTATIN 20 MG TAB PO SCH (19:54)
[2017-09-25] MEDS: APAP/HYDROCODONE 325/5 TAB PO PRN ×3 (05:41→20:18)
[2017-09-25] MEDS: LEVOTHYROXINE SOD 0.05 MG TAB PO SCH (05:41)
[2017-09-25 06:14] LABS: PLATELET COUNT, AUTOMATED 321 K/uL (150-450)
[2017-09-25] MEDS: POTASSIUM CHL 10 MEQ TABCR PO SCH (07:46)
[2017-09-25 08:30] VITALS: BP 129/70
[2017-09-25] MEDS: LOSARTAN POTASSIUM 50 MG TAB PO SCH (09:00)
[2017-09-25] MEDS: POLYETHYLENE GLYCOL 17 GM PKT PO SCH (09:00)
[2017-09-25] MEDS: amLODIPine BESYL(*) 5 MG TAB PO SCH (09:00)
[2017-09-25] MEDS: LACTOBACILLUS ACIDOPHILUS TAB PO SCH (09:42)
[2017-09-25] MEDS: DOCUSATE SODIUM 100 MG CAP PO SCH ×2 (09:42→20:18)
[2017-09-25] MEDS: PANTOPRAZOLE SOD 40 MG TABEC PO SCH (09:42)
[2017-09-25 09:57] VITALS: BP 123/62
[2017-09-25 15:30] VITALS: BP 109/59
[2017-09-25] MEDS: SIMVASTATIN 20 MG TAB PO SCH (20:18)
[2017-09-26] MEDS: LEVOTHYROXINE SOD 0.05 MG TAB PO SCH (06:06)
[2017-09-26] MEDS: LOSARTAN POTASSIUM 50 MG TAB PO SCH (08:16)
[2017-09-26] MEDS: LACTOBACILLUS ACIDOPHILUS TAB PO SCH (08:16)
[2017-09-26] MEDS: amLODIPine BESYL(*) 5 MG TAB PO SCH (08:17)
[2017-09-26] MEDS: PANTOPRAZOLE SOD 40 MG TABEC PO SCH (08:17)
[2017-09-26] MEDS: DOCUSATE SODIUM 100 MG CAP PO SCH ×2 (08:17→20:52)
[2017-09-26] MEDS: POLYETHYLENE GLYCOL 17 GM PKT PO SCH (09:00)
[2017-09-26 10:00] VITALS: BP 135/77
[2017-09-26 18:15] VITALS: BP 131/78
[2017-09-26] MEDS: SIMVASTATIN 20 MG TAB PO SCH (20:25)
[2017-09-26] MEDS: APAP/HYDROCODONE 325/5 TAB PO PRN (20:28)
[2017-09-27] MEDS: LEVOTHYROXINE SOD 0.05 MG TAB PO SCH (05:40)
[2017-09-27] MEDS: APAP/HYDROCODONE 325/5 TAB PO PRN ×3 (05:44→21:24)
[2017-09-27 07:49] VITALS: BP 139/74
[2017-09-27] MEDS: POLYETHYLENE GLYCOL 17 GM PKT PO SCH (08:57)
[2017-09-27] MEDS: PANTOPRAZOLE SOD 40 MG TABEC PO SCH (08:57)
[2017-09-27] MEDS: DOCUSATE SODIUM 100 MG CAP PO SCH ×3 (08:57→21:24)
[2017-09-27] MEDS: LACTOBACILLUS ACIDOPHILUS TAB PO SCH (08:58)
[2017-09-27] MEDS: amLODIPine BESYL(*) 5 MG TAB PO SCH (08:59)
[2017-09-27] MEDS: LOSARTAN POTASSIUM 50 MG TAB PO SCH (08:59)
[2017-09-27 16:07] VITALS: BP 146/86
[2017-09-27] MEDS: SIMVASTATIN 20 MG TAB PO SCH (21:24)
[2017-09-28] MEDS: LEVOTHYROXINE SOD 0.05 MG TAB PO SCH (06:16)
[2017-09-28 07:40] VITALS: BP 134/73
[2017-09-28] MEDS: APAP/HYDROCODONE 325/5 TAB PO PRN ×2 (08:06→21:03)
[2017-09-28] MEDS: PANTOPRAZOLE SOD 40 MG TABEC PO SCH (08:47)
[2017-09-28] MEDS: LACTOBACILLUS ACIDOPHILUS TAB PO SCH (08:48)
[2017-09-28] MEDS: LOSARTAN POTASSIUM 50 MG TAB PO SCH (08:48)
[2017-09-28] MEDS: amLODIPine BESYL(*) 5 MG TAB PO SCH (08:49)
[2017-09-28] MEDS: POLYETHYLENE GLYCOL 17 GM PKT PO SCH (08:49)
[2017-09-28] MEDS: DOCUSATE SODIUM 100 MG CAP PO SCH ×2 (08:49→21:00)
[2017-09-28 17:02] VITALS: BP 116/68
[2017-09-28] MEDS: SIMVASTATIN 20 MG TAB PO SCH (21:03)
[2017-09-29] MEDS: LEVOTHYROXINE SOD 0.05 MG TAB PO SCH (06:12)
[2017-09-29 07:40] VITALS: BP 130/73
[2017-09-29] MEDS: DOCUSATE SODIUM 100 MG CAP PO SCH ×2 (09:00→21:00)
[2017-09-29] MEDS: LOSARTAN POTASSIUM 50 MG TAB PO SCH (09:00)
[2017-09-29] MEDS: POLYETHYLENE GLYCOL 17 GM PKT PO SCH (09:00)
[2017-09-29] MEDS: amLODIPine BESYL(*) 5 MG TAB PO SCH (09:08)
[2017-09-29] MEDS: PANTOPRAZOLE SOD 40 MG TABEC PO SCH (09:09)
[2017-09-29] MEDS: LACTOBACILLUS ACIDOPHILUS TAB PO SCH (09:09)
--- NOTE | 2017-09-29 09:58 | Medical Nutrition Therapy ---
Nutrition Anthropometrics Height (Inches): 60.00 Height (Calculated Centimeters: 152.282407 Weight (Pounds): 130 Weight (Calculated Kilograms): 59.165 BMI: 26 Natanael Nutrition Score: Adequate Natanael Nutrition Risk Score: 19 Dietary Referral Nutrition Risk Factors: Nutrition Risk Comment: Physical Findings Physical Appearance: BMI WNR Skin Appearance Skin Appearance: Edema Edema Location Modifier: Both Edema Location: Lower Extremity Type of Edema: Degree of Edema: Gastrointestinal Symptoms GI Symtoms: Change in Bowel Pattern Tube Present: Bowel Sounds: Recent Bowel Pattern: Constipated Stool Characteristics: Nutritional Diagnosis Nutritional Risk Acuity 3: Fair Appetite, Fx & > 80 yrs Past Medical History: HX of Hypothyroidism, Increased MCV, HTN, Malignant neoplasm of breast, Hypercholesterolemia, Esophageal reflux, mastectomy Nutritional Acuity: 3-Mild Nutrition Diagnosis: Increased Nutrient Needs Nutrition Etiology: Physiological Causes Nutrition Problem/Etiology/Sym: Increase nutrient needs related to physiological causes AEB weakness and fx > 80 yrs old. Energy Requirement: 1305 ([place]-St Jeor X /3 SF) Protein Requirement: 73 (1.2gm/kg) Fluid Requirement: 1525 (25ml/kg) Diet Type: Diet as Tolerated KISHOR/REG Nutrition Intervention: Cont diet as ordered, Encourage intake, HS snack Food Dislikes: no breakfast please unless she asks for it. Optional Order Time?: No (inform nursing of mealtimes- on med taken on empty stomach) Diet Comment To RSA: PT REQUEST NO BREAKFAST OFFER NUTRITION SUPPLEMENT Nutrition Monitoring & Eval Nutrition Goals: Eat 75-100% Meal RD Patient Assessment Time: [address] Assessment Type: RD Re-Assessment Patient Nutrition Acuity: 3-Mild Follow Up Date: Oct 07, 2017 Nutritional Comment: 09/16 Pt admitted s/p hip fx. Pt refused first meal in facility but ate 100% of dinner meal. Pt had been eating 50- 100% of meals on med unit. Alb3. Will cont to monitor and encourage intake. BK 09/22 Pt continues on KISHOR/REG with 100% oral intake. No new lab values at this time. Pt is working with OT and PT to help regain her strength. Per doctor now (09/17) No new complaints. Has chronic diarrhea. Pt is on PO probiotic that was ordered yesterday. Continue to monitor pt progress and encourage intake. MT 09/29 Pt continues on regular diet with 100% oral intake. Pt has refused some of her meals and snacks. Pt has had a 3.7% wt loss since last week. Continue to provide nutrition supplements to assure pt meets her nutritional needs. No new labs. Pt has no complaints. Continue to monitor pt progress and encourage intake. KEVIN ROACHMARTÍN Sep 29, 2017 08:46
--- NOTE | 2017-09-29 13:05 | PT ECF NOTE ---
Type of Note: Progress Note Primary Medical Diagnosis: Nondisplaced fracture of the left sacrum, mildly displaced fracture to the superior and inferior rami on the L), Rotator cuff tear of the L) shoulder, UTI Physical Therapy Evaluation Date: 09/15/17 Physical Therapy Progress Note Date: 09/29/17 SUBJECTIVE: Prior Hospitalization: [facility] 09/12/17-09/15/17 Prior Level of Function: Sam with no AD, pt does report previous falls Prior Living Status: Multilevel house, Spouse Community Services: No known needs Home Accessibility: 7 stairs with railing to enter, 15 stairs to access bedroom Equipment Owned: Front wheeled walker, Cane Medical Complications/Past Medical History: previous R) rotator cuff injury, see EMR for all details Psychosocial Support: Supportive Pain Scale (0-10): 3/10 WB Status: WBAT L) LE, WBAT L) UE OBJECTIVE: Strength: Right Lower Extremity: DF: 4/5 Knee flexion: 4/5 Knee extension: 4/5 Hip flexion: 4/5 Left Lower Extremity: DF: 4/5 Knee flexion: 4/5 Knee extension: 3+/5 Hip flexion: <3/5 ROM: L) LE AROM limited by pain, L) UE AROM limited as well (not formally assessed) Sensation: WNL Other Neuro findings: None Noted Bed Mobility: Sam supine to sit, Ubaldo to lift LEs into bed Transfers: SBA with RW Gait: 2x175' with RW and SBA Stairs: 2x4 with CGA Timed Up and Go (>12 seconds indicated increased risk for falls): 35 seconds ASSESSMENT: The patient is making progress towards functional goals and is demonstrating increased independence with transfers and ambulation with use of RW, as well as decreased need of assistance from others. She is making progress with sequencing and safety with stair negotiation, but will benefit from further skilled instruction to ensure safety prior to d/c home. Problem List/Current Limitations: Pain Decreased activity rebecca Decreased strength Decreased balance Generalized weakness Short Term Goals: (ongoing) 1: Pt to complete bed mobility with Sam 2: Pt to complete transfers with Sam and least restrictive AD 3: Pt to ambulate 100' with Sam and least restrictive AD 4: Pt to asc/desc a flight of stairs with SBA Custodial Goals: Pt to discharge to safest discharge location with a decreased need of assistance from others Patient Goals: Pt would like to d/c home Rehabilitation Prognosis: Fair Barriers for Discharge: New L) rotator cuff tear limiting active use of UE, multiple flights of stairs at home, previous h/o falls PLAN: The patient will benefit from skilled physical therapy services 5 times per week for 2 weeks including: Therapeutic Exercise Therapeutic Activities Transfer Training Gait Training Stair Training Manual Therapy Safety Training Neuromuscular Re-educ. Pt/Caregiver Training Bed Mobility Thank you for this referral. If you have any questions, concerns, or comments about this report or plan, please contact me at . Cha Mercado, PT, DPT MTDD
[2017-09-29] MEDS: APAP/HYDROCODONE 325/5 TAB PO PRN ×2 (14:10→20:36)
[2017-09-29 16:30] VITALS: BP 138/75
[2017-09-29] MEDS: SIMVASTATIN 20 MG TAB PO SCH (20:36)
[2017-09-30] MEDS: LEVOTHYROXINE SOD 0.05 MG TAB PO SCH (05:59)
[2017-09-30 08:31] VITALS: BP 107/67
[2017-09-30] MEDS: LOSARTAN POTASSIUM 50 MG TAB PO SCH (09:00)
[2017-09-30] MEDS: amLODIPine BESYL(*) 5 MG TAB PO SCH (09:00)
[2017-09-30] MEDS: POLYETHYLENE GLYCOL 17 GM PKT PO SCH (09:18)
[2017-09-30] MEDS: APAP/HYDROCODONE 325/5 TAB PO PRN ×2 (09:21→20:32)
[2017-09-30] MEDS: LACTOBACILLUS ACIDOPHILUS TAB PO SCH (09:21)
[2017-09-30] MEDS: DOCUSATE SODIUM 100 MG CAP PO SCH ×2 (09:21→20:29)
[2017-09-30] MEDS: PANTOPRAZOLE SOD 40 MG TABEC PO SCH (09:21)
--- NOTE | 2017-09-30 10:27 | OT ECF NOTE ---
Type of Note: Discharge Note Primary Medical Diagnosis: Generalized weakness s/p nondisplaced fracture of the left sacrum, mildly displaced fracture to the superior and inferior rami on the L), Rotator cuff tear of the L) shoulder, UTI. *Per orthopedic consult, pt has no restrictions. She is WBAT L LE and L UE* Occupational Therapy Evaluation Date: 09/16/17 SUBJECTIVE: Prior Hospitalization: H 09/10/17 thru 09/15/17 Prior Level of Function: Mod (I) for ADLs with assist from spouse for LB dressing. Assist from spouse for IADLs (cooking) and a lady that assists with cleaning. Pt reports hx of frequent falls. Prior Living Status: Multilevel house, Spouse Community Services: No known needs Home Accessibility: Stairs with rails-5 steps to get to porch, 15 steps to access area of home where she spends the most time. Walk-in shower Equipment Owned: Front wheeled walker Cane Shower chair Medical Complications/Past Medical History: Hx of right RTC repair, hx of breast cancer and left mastectomy, HTN, hypothyroidism, hypercholesterolemia Psychosocial Support: Supportive spouse "Rolando" Pain Scale (0-10): 3/10-primarily in L LE. No complaints of L UE pain with use for mobility and ADLs OBJECTIVE: Strength: Not tested secondary to limited in ROM in B UE, pain in LE UE ( secondary to massive RTC tear) ROM: Both upper extremities, Moderately limited Functional Transfer: Assistive Device: Front wheeled walker Transfer Ability: SBA ADL: Upper body dressing: Assistive device: None Upper body dressing ability: SBA Lower body dressing: Assistive device: Sock aide/master black belt Lower body dressing ability: Pt Mod (I) LB dressing with use AE. Pt reports she prefers to have spouse assist with donning/doffing socks as he did prior to admission Toileting: Assistive device: 17" toilet height Toileting ability: SBA Grooming/hygiene: Assistive device: Standing in bathroom Grooming ability: SBA Bathing: Assistive device: Shower chair Bathing ability: SBA Standardized Assessment: Candida Index of Activities of Daily Livin/20 upon initial evaluation (). at discharge (09/30/17). ASSESSMENT: Val presented to [facility] requiring significant assist for ADLs and inability to ambulate functional distances. She has met all skilled OT goals and a home assessment with appropriate recommendations was provided. Problem List/Current Limitations: Pain Decreased activity tolerance Decreased strength Decreased ROM Generalized weakness Poor safety awareness Short Term Goals: 1) Pt will be SBA UB/LB dressing. GOAL MET. 2) Pt will be SBA toilet task. GOAL MET. 3) Pt will be SBA grooming/hygiene seated. GOAL MET. 4) Pt will be Min A shower task. GOAL MET. 5) Pt will be educated on appropriate AE recommendations. GOAL MET. 6) Pt Candida Index of ADLs score will improve by 2 points. GOAL MET. Assisted Goals: Return home Patient Goals: Return home with spouse Rehabilitation Prognosis: Good Barriers to Discharge: Pain, hx of frequent falls PLAN: The patient plans to discharge home with assist from spouse. This OT has strongly encouraged HH services. Pt verbalizes understanding but is hesitant to agree with recommendation. Thank you for this referral. If you have any questions, concerns, or comments about this report or plan, please contact me at . Natalie Mike MS, OTR/L Occupational Therapist [place]ERRANCE
--- NOTE | 2017-09-30 12:03 | Medical Nutrition Therapy ---
Nutrition Anthropometrics Height (Inches): 60.00 Height (Calculated Centimeters: 152.244076 Weight (Pounds): 130 Weight (Calculated Kilograms): 59.165 BMI: 26 Natanael Nutrition Score: Adequate Natanael Nutrition Risk Score: 19 Dietary Referral Nutrition Risk Factors: Nutrition Risk Comment: Nutritional Diagnosis Nutritional Risk Acuity 3: Fair Appetite, Fx & > 80 yrs Past Medical History: HX of Hypothyroidism, Increased MCV, HTN, Malignant neoplasm of breast, Hypercholesterolemia, Esophageal reflux, mastectomy Nutritional Acuity: 3-Mild Nutrition Diagnosis: Increased Nutrient Needs Nutrition Etiology: Physiological Causes Nutrition Problem/Etiology/Sym: Increase nutrient needs related to physiological causes AEB weakness and fx > 80 yrs old. Energy Requirement: 1305 Protein Requirement: 73 Fluid Requirement: 1525 Diet Type: Diet as Tolerated KISHOR/REG Nutrition Intervention: Cont diet as ordered, Encourage intake, HS snack Food Dislikes: no breakfast please unless she asks for it. Optional Order Time?: No (inform nursing of mealtimes- on med taken on empty stomach) Additional Diet Restrictions: OFFER NUTRITION SUPPLEMENT Diet Comment To RSA: PT REQUEST NO BREAKFAST Nutrition Monitoring & Eval RD Patient Assessment Time: [address] Assessment Type: RD Re-Assessment Patient Nutrition Acuity: 3-Mild Follow Up Date: Oct 07, 2017 Nutritional Comment: 09/16 Pt admitted s/p hip fx. Pt refused first meal in facility but ate 100% of dinner meal. Pt had been eating 50- 100% of meals on med unit. Alb3. Will cont to monitor and encourage intake. BK 09/22 Pt continues on KISHOR/REG with 100% oral intake. No new lab values at this time. Pt is working with OT and PT to help regain her strength. Per doctor now (09/17) No new complaints. Has chronic diarrhea. Pt is on PO probiotic that was ordered yesterday. Continue to monitor pt progress and encourage intake. MT 09/29 Pt continues on regular diet with 100% oral intake. Pt has refused some of her meals and snacks. Pt has had a 3.7% wt loss since last week. Continue to provide nutrition supplements to assure pt meets her nutritional needs. No new labs. Pt has no complaints. Continue to monitor pt progress and encourage intake. KEVIN MARINLEXY Sep 30, 2017 12:03
[2017-09-30 16:10] VITALS: BP 126/73
[2017-09-30] MEDS: SIMVASTATIN 20 MG TAB PO SCH (20:29)
[2017-10-01] MEDS: LEVOTHYROXINE SOD 0.05 MG TAB PO SCH (06:07)
[2017-10-01 07:10] VITALS: BP 145/76
[2017-10-01] MEDS: PANTOPRAZOLE SOD 40 MG TABEC PO SCH (09:08)
[2017-10-01] MEDS: LACTOBACILLUS ACIDOPHILUS TAB PO SCH (09:08)
[2017-10-01] MEDS: POLYETHYLENE GLYCOL 17 GM PKT PO SCH (09:08)
[2017-10-01] MEDS: LOSARTAN POTASSIUM 50 MG TAB PO SCH (09:08)
[2017-10-01] MEDS: DOCUSATE SODIUM 100 MG CAP PO SCH (09:08)
[2017-10-01] MEDS: amLODIPine BESYL(*) 5 MG TAB PO SCH (09:08)
--- NOTE | 2017-10-01 11:48 | PT ECF NOTE ---
Type of Note: Discharge Summary Primary Medical Diagnosis: Nondisplaced fracture of the left sacrum, mildly displaced fracture to the superior and inferior rami on the L), Rotator cuff tear of the L) shoulder, UTI Physical Therapy Evaluation Date: 09/15/17 Physical Therapy Discharge Date: 10/01/17 SUBJECTIVE: Prior Hospitalization: [facility] 09/12/17-09/15/17 Prior Level of Function: Sam with no AD, pt does report previous falls Prior Living Status: Multilevel house, Spouse Community Services: No known needs Home Accessibility: 7 stairs with railing to enter, 15 stairs to access bedroom Equipment Owned: Front wheeled walker, Cane Medical Complications/Past Medical History: previous R) rotator cuff injury, see EMR for all details Psychosocial Support: Supportive Pain Scale (0-10): 310 WB Status: WBAT L) LE, WBAT L) UE OBJECTIVE: Strength: Right Lower Extremity: DF: 4/5 Knee flexion: 4/5 Knee extension: 4/5 Hip flexion: 4/5 Left Lower Extremity: DF: 4/5 Knee flexion: 4/5 Knee extension: 3+/5 Hip flexion: <3/5 ROM: L) LE AROM limited by pain, L) UE AROM limited as well (not formally assessed) Sensation: WNL Other Neuro findings: None Noted Bed Mobility: Sam supine to sit, Ubaldo to lift LEs into bed Transfers: Sam with RW Gait: 2x175' with RW and SBA/Sam Stairs: 2x4 with SBA Timed Up and Go (>12 seconds indicated increased risk for falls): 35 seconds ASSESSMENT: Val has made good progress towards her functional goals and is safe to d/c home from a mobility standpoint with assistance from her spouse and [facility] services in place. Her spouse and family are available to assist the patient with walker management for stair negotiation and the pt plans to spend most of her time on the top floor of her home. No further skilled PT treatments planned at this time. Problem List/Current Limitations: Pain Decreased activity rebecca Decreased strength Decreased balance Generalized weakness Short Term Goals: 1: Pt to complete bed mobility with Sam (met supine to sit) 2: Pt to complete transfers with Sam and least restrictive AD (met) 3: Pt to ambulate 100' with Sam and least restrictive AD (partially met) 4: Pt to asc/desc a flight of stairs with SBA (met) Halfway Goals: Pt to discharge to safest discharge location with a decreased need of assistance from others (met) Patient Goals: Pt would like to d/c home (met) PLAN: The patient will discharge home with assistance from her spouse and [facility] services in place. It is recommended that she use a RW at time of d/c. Thank you for this referral. If you have any questions, concerns, or comments about this report or plan, please contact me at . Cha Mercado, PT, DPT DENAD
[2017-10-01] MEDS ORDERED: LOR5/325 PO (13:32)
--- NOTE | 2017-10-01 13:38 | Hospitalist Depart ---
Discharge Summary Reason for Hosp/Final Diag: (1) Pelvis fracture Status: Acute Hospital Course & Plan: The patient was admitted for pelvic fracture and inability to ambulate. CT of pelvis noted a nondisplaced fracture of the left sacrum and a mildly displaced fracture to the superior and inferior rami. She was initially placed on IV and oral pain medication. The IV pain medication was discontinued once her pain improved. Dr. Aparicio reviewed CT results, and recommended advancing her to weight bearing of the left leg as tolerated. PT and OT were consulted to work with patient and recommended short term rehabilitation. She was transferred to [facility] for ongoing rehabilitation. She continued to work with PT and OT and progressed. She was felt to be ready to discharge to home. (2) UTI (urinary tract infection) Status: Acute Hospital Course & Plan: She had cloudy urine from catheter specimen on admisssion, along with fever. Her urine showed large leukocyte esterase and WBC. Her urine culture grew E. coli. She completed a 5 day course of levofloxacin. (3) Hyponatremia Status: Acute Hospital Course & Plan: She was found to have a sodium of 125 upon admission. Sodium normalized with IV fluids. (4) Hypertension, benign Status: Chronic Hospital Course & Plan: She was on chronic treatment with amlodipine and losartan. The medications were restarted with hold parameters. (5) Hypothyroidism Status: Chronic Hospital Course & Plan: She was continued on chronic treatment with Levothyroxine. (6) Hypercholesterolemia Status: Chronic Hospital Course & Plan: She was continued on chronic treatment with Simvastatin. (7) Hypokalemia Status: Acute Hospital Course & Plan: Potassium was low at 3.2 on admission. Her potassium normalized with oral replacement. Departure Weight (Pounds): 127 Weight (Ounces): 3.0 Result Diagram: 09/25/1760409/25/17604 Condition: Improved Discharge: Home, Home Health PT/OT Follow Up For: PT For Surgical Rehab Home Health SALES AND CATERING COORDINATOR Follow Up For: ADL Assistance Time Spent: < 30 min Discharge Instructions Home Meds Active Scripts Hydrocodone Bit/Acetaminophen (HYDROCODON-ACETAMINOPHEN 5-325) 1 Each Tablet, 1- 2 EACH PO Q6H Y for PAIN, #40 TAB Prov:ROBSON LOPEZ MD 10/01/17 Losartan Potassium (LOSARTAN POTASSIUM) 100 Mg Tablet, 1 TAB PO QDAY, #90 TAB 3 Refills Prov:KARLOS DUFFY MD 09/05/17 Gabapentin (GABAPENTIN) 300 Mg Capsule, 300 MG PO TID Y for pain, #180 CAPSULE 4 Refills Prov:KARLOS DUFFY MD 07/29/17 Levothyroxine Sodium (LEVOTHYROXINE SODIUM) 50 Mcg Tablet, 50 MCG PO QDAY, #90 TAB 4 Refills Prov:KARLOS DUFFY MD 07/29/17 Simvastatin (SIMVASTATIN) 10 Mg Tablet, 10 MG PO HS, #90 TAB 3 Refills Prov:KARLOS DUFFY MD 05/13/17 Amlodipine Besylate (AMLODIPINE BESYLATE) 5 Mg Tablet, 1 TAB PO QDAY, #90 TAB 4 Refills Prov:KARLOS DUFFY MD 05/13/17 Tramadol Hcl (TRAMADOL HCL) 50 Mg Tablet, 50 MG PO QID Y for PAIN, #120 TAB 5 Refills Prov:KARLOS DUFFY MD 05/13/17 Pantoprazole Sodium (PANTOPRAZOLE SODIUM) 40 Mg Tablet.dr, 40 MG PO QDAY, #90 TAB.SR 3 Refills Prov:KARLOS DUFFY MD 11/14/16 Acetaminophen (ACETAMINOPHEN) 500 Mg Tablet, 500-1000 MG PO Q8H Y for PAIN for 30 Days, TAB Prov:ISABELA LOPEZ MD 11/10/16 Reported Medications Lactobacillus Acidophilus (PROBIOTIC) 1 Each Capsule, 1 EACH PO DAILY, CAPSULE 09/10/17 Cholecalciferol (Vitamin D3) (VITAMIN D3) 1,000 Unit Tablet, 1 TAB PO DAILY 12/22/13 Multivitamin (DAILY VITAMIN FORMULA) 1 Each Tablet, 1 TAB PO DAILY 12/22/13 Calcium Carbonate/Vitamin D3 (CALCIUM + VITAMIN D TABLET) 1 Each Tablet, 1 TAB PO DAILY 12/22/13 Follow up Referrals: Internal Medicine - In One Week @ [facility] [place]-Primary with Karlos Duffy Md Diet: Regular Activity: As Tolerated Copies to: KARLOS DUFFY MD [id number] Certification Face to Face Home Health Certification Institutional Provider conducted the [id number] encounter. Electronic Undersigning Physician Certifies Home Health. I certify that the patient has been under my care and that I had a [id number] encounter that meets the physician [id number] encounter requirements with this patient. This patient is home-bound due to safety issues and continues to require assistance with ADL's. I certify that based on my findings, that Nursing, Aides and the following Home Health services are medically necessary: PT Medical Necessity: Nursing, Rehab Date Face to Face Conducted: Oct 01, 2017 ROBSON LOPEZ MD Oct 01, 2017 13:38
== END 2017-10-01 14:35 | disposition home or self-care (01) | DRG 560 ==
LOC: ECF 11:30
PROVIDERS: ADMIT Internal Medicine; ATTEND Internal Medicine
DX: S32.512D Fracture of superior rim of left pubis, subsequent encounter for fracture with routine healing (principal); N39.0 Urinary tract infection, site not specified; E87.1 Hypo-osmolality and hyponatremia; S32.10XD Unspecified fracture of sacrum, subsequent encounter for fracture with routine healing; I10 Essential (primary) hypertension; E03.9 Hypothyroidism, unspecified; E78.00 Pure hypercholesterolemia, unspecified; B96.20 Unspecified Escherichia coli [E. coli] as the cause of diseases classified elsewhere; E87.6 Hypokalemia; K21.9 Gastro-esophageal reflux disease without esophagitis; W01.0XXD Fall on same level from slipping, tripping and stumbling without subsequent striking against object, subsequent encounter; Y92.008 Other place in unspecified non-institutional (private) residence as the place of occurrence of the external cause; Y99.8 Other external cause status; Z96.641 Presence of right artificial hip joint; Z96.653 Presence of artificial knee joint, bilateral; Z90.12 Acquired absence of left breast and nipple; Z88.1 Allergy status to other antibiotic agents; Z88.2 Allergy status to sulfonamides; Z88.8 Allergy status to other drugs, medicaments and biological substances; Z88.0 Allergy status to penicillin
CPT/HCPCS: 36415; 82310; 82374; 82435; 82565; 82947; 84132; 84295; 84520; 85025; 97161; 97166

== ENCOUNTER 2017-10-23 10:33 | Emergency (ER) | payer MEDICARE, BC ==
[2017-09-11 12:29] VITALS: Wt 57.7 kg
[~2017-10-23 10:33] MED LIST changes: +LOR5/325 PO
--- NOTE | 2017-10-23 12:41 | RADIOLOGY IMAGING REPORT ---
FAC[place] [facility] [place] NAME: Val Wallace : 1935 MR: [id number] V: [id number] EXAM DATE: ORDERING PHYSICIAN: MANAN BERMAN TECHNOLOGIST: Location: [facility] Patient: Val Wallace : 1935 Visit/Account:[id number] Date of Sevice: 10/23/2017 EXAMINATION: Pelvis and right hip radiographs HISTORY: Pain, injury COMPARISON: September 10, 2017 FINDINGS: Frontal pelvis and frog-leg lateral right hip radiographs obtained. Bones: No acute fracture identified. Hypertrophy of the left superior pubic ramus is new compared t o prior. No definitive residual nonhealed fracture seen within the left superior pubic ramus. Joint spaces: Unchanged right hip arthroplasty in near anatomic alignment without evidence of loosen ing. Alignment: Normal. Soft tissues: Normal. IMPRESSION: No acute finding. Unchanged right hip arthroplasty in near-anatomic alignment without evidence of loosening. Chronic left superior pubic ramus fracture deformity exhibits new bony hypertrophy when compared to p rior in keeping with fracture healing response. No definitive nonhealed residual fracture remains in this area. Report Dictated By: Atilio Watkins MD at 10/23/2017 12:34 PM Report E-Signed By: Atilio Watkins MD at 10/23/2017 12:37 PM WSN:[email or web address]
[2017-10-23] MEDS ORDERED: DIAZEPAM 2 MG TAB PO ONE (13:25)
[2017-10-23] MEDS ORDERED: DEXAMETHASONE 4 MG TAB PO ONE (13:25)
[2017-10-23 13:30] VITALS: BP 119/70
--- NOTE | 2017-10-23 13:46 | ER Report ---
History and Physical Time Seen By : 12:00 Hx. of Stated Complaint: DID PT EXERCISES VIGOROUSLY AND NOW RIGHT BUTT CHEEK HURTS. CALLED PT. THEY THINK SHE PULLED A MUSCLE HPI/ROS This is an 82-year-old female status post right hip replacement. She recently had a minor fracture of her pelvis which was not repaired but she attended inpatient rehabilitation. Upon discharge she was given a home health physical therapist who comes approximately twice a week. She states that she has been exercising as directed by her physical therapist, but last week started experiencing pain in her right buttocks area. She has not had physical therapy in a week, and states the pain is worsening. It is worse when she is sitting at rest. It is not in her hip. She is no abdominal pain and no urinary symptoms. No new trauma since her fall in late August at which point she fractured her pelvis. No fever chills. Her physical therapist was a muscle strain and will improve. She is currently taking tramadol and gabapentin for postop pain. Allergies: Coded Allergies: Sulfa (Sulfonamide Antibiotics) (Verified Allergy, Intermediate, 10/23/17) sulfamethoxazole (Verified Allergy, Intermediate, 10/23/17) Flushing of face, Rash to entire body. trimethoprim (Verified Allergy, Intermediate, 10/23/17) Flushing of face, Rash to entire body. Penicillins (Verified Allergy, Mild, 10/23/17) MIKE Inhibitors (Verified Allergy, Unknown, COUGH, 10/23/17) NSAIDS (Non-Steroidal Anti-Inflamma (Verified Allergy, Unknown, UNKNOWN, ) cephalexin (Verified Allergy, Unknown, UNKNOWN, 10/23/17) erythromycin base (Verified Allergy, Unknown, UNKNOWN, 10/23/17) spironolactone (Verified Allergy, Unknown, UNKNOWN, 10/23/17) Home Meds Active Scripts Pantoprazole Sodium (PANTOPRAZOLE SODIUM) 40 Mg Tablet.dr, 40 MG PO QDAY, #90 TAB.SR 3 Refills Prov:KARLOS GREENE MD 10/14/17 Losartan Potassium (LOSARTAN POTASSIUM) 100 Mg Tablet, 1 TAB PO QDAY, #90 TAB 3 Refills Prov:KARLOS GREENE MD 09/05/17 Gabapentin (GABAPENTIN) 300 Mg Capsule, 300 MG PO TID Y for pain, #180 CAPSULE 4 Refills Prov:KARLOS GREENE MD 07/29/17 Levothyroxine Sodium (LEVOTHYROXINE SODIUM) 50 Mcg Tablet, 50 MCG PO QDAY, #90 TAB 4 Refills Prov:KARLOS GREENE MD 07/29/17 Simvastatin (SIMVASTATIN) 10 Mg Tablet, 10 MG PO HS, #90 TAB 3 Refills Prov:KARLOS GREENE MD 05/13/17 Amlodipine Besylate (AMLODIPINE BESYLATE) 5 Mg Tablet, 1 TAB PO QDAY, #90 TAB 4 Refills Prov:KARLOS GREENE MD 05/13/17 Tramadol Hcl (TRAMADOL HCL) 50 Mg Tablet, 50 MG PO QID Y for PAIN, #120 TAB 5 Refills Prov:KARLOS GREENE MD 05/13/17 Acetaminophen (ACETAMINOPHEN) 500 Mg Tablet, 500-1000 MG PO Q8H Y for PAIN for 30 Days, TAB Prov:ISABELA LOPEZ MD 11/10/16 Reported Medications Lactobacillus Acidophilus (PROBIOTIC) 1 Each Capsule, 1 EACH PO DAILY, CAPSULE 09/10/17 Cholecalciferol (Vitamin D3) (VITAMIN D3) 1,000 Unit Tablet, 1 TAB PO DAILY 12/22/13 Multivitamin (DAILY VITAMIN FORMULA) 1 Each Tablet, 1 TAB PO DAILY 12/22/13 Calcium Carbonate/Vitamin D3 (CALCIUM + VITAMIN D TABLET) 1 Each Tablet, 1 TAB PO DAILY 12/22/13 Reviewed Nurses Notes: Yes Old Medical Records Reviewed: Yes Hx Smoking: No Smoking Status: Never Smoker Hx Substance Use Disorder: No Hx Alcohol Use: Yes Constitutional Vital Sign - Last 24 Hours 10/23/17 10/23/17 10/23/17 10/23/17 10:45 10:49 11:00 11:30 Temp 98.2 Pulse 75 Resp 14 B/P (MAP) 143/78 143/78 (99) 137/59 (85) 138/62 (87) Pulse Ox 95 O2 Delivery Room Air 10/23/17 10/23/17 10/23/17 10/23/17 12:00 12:30 13:00 13:30 B/P (MAP) 145/62 (89) 142/63 (89) 142/59 (86) 119/70 (86) Physical Exam General Appearance: The patient is alert, has no immediate need for airway protection and no current signs of toxicity. Eyes: Pupils equal and round no injection. Respiratory: Chest is non tender, lungs are clear to auscultation. Cardiac: regular rate and rhythm Gastrointestinal: Abdomen is soft and non tender, no masses, bowel sounds normal. Musculoskeletal: Point TTP at the right buttocks sciatica area. No bony TTP. Full ROM at right hip. N/V in tact Extremities have full range of motion and are non tender. Skin: No rashes or lesions. DIFFERENTIAL DIAGNOSIS: After history and physical exam differential diagnosis was considered for fracture/dislocation/infection/radiculopathy Medical Decision Making ED Course/Re-evaluation ED Course 82-year-old female with history of recent fall with a small pelvic fracture treated with rehabilitation and physical therapy presents with no new trauma and symptoms of right-sided sciatica. She was given a muscle relaxer and Decadron. I discussed sciatica with her and suggested that she talk with the physical therapist about new exercises for sciatica relief. She is going to call her physical therapist today. She currently has tramadol and gabapentin at home and I encouraged her to continue that regimen for pain. I also gave her a list of stretching exercises for sciatica. Decision to Disposition Date: Oct 23, 2017 Decision to Disposition Time: 13:46 Depart Departure Latest Vital Signs Vital Signs Date Time Temp Pulse Resp B/P (MAP) Pulse Ox O2 Delivery O2 Flow Rate FiO2 10/23/17 13:30 119/70 (86) 10/23/17 10:45 98.2 75 14 95 Room Air Impression: Primary Impression: Sciatica of right side Condition: Improved Disposition: HOME OR SELF-CARE Referrals: KARLOS GREENE MD (PCP) Departure Forms: Medications Reconciliation, Patient Portal Information, ER Transition Record Patient Instructions: Sciatica (ED) MANAN BERMAN MD Oct 23, 2017 13:46
== END 2017-10-23 14:04 | disposition home or self-care (01) ==
LOC: ER 10:37
DX: M54.31 Sciatica, right side (principal)
CPT/HCPCS: 73502; 99283; A9270; J8540

== ENCOUNTER → 2018-03-20 | Outpatient (CLI) | payer MEDICARE, BC ==
[2017-09-11 12:29] VITALS: BMI 26.6
[~2018-03-20] MED LIST changes: +AMLO-111 PO; +AMLO-113 PO; -AMLO-96 PO; -AMLO-99 PO; +DEN60I SUBQ; +FLU180SY11 IM; -INDO-1 PO; +INDO-21 PO; -LOSA100T67 PO; +LOSA100T69 PO; -METF-411 PO; +METF-450 PO
== END ==
LOC: LAB 10:53
PROVIDERS: ATTEND Internal Medicine Hematology & Oncology
DX: C50.112 Malignant neoplasm of central portion of left female breast (principal)
CPT/HCPCS: 36415; 82378

== ENCOUNTER 2018-05-04 14:30 | Outpatient (RCR) | payer MEDICARE, BC ==
[2017-09-11 12:29] VITALS: BMI 26.6
--- NOTE | 2018-02-04 19:07 | PT INITIAL EVALUATION ---
MEDICAL DIAGNOSIS: Pelvic fracture TREATMENT DIAGNOSIS: Same, R26.89 Imbalance DATE OF ONSET: 09/10/17 SUBJECTIVE: Val Wallace presents to PT to continue recovery of gait, balance, strength and conditioning from a fall at home 09/10/17, pelvic rami and sacral fracture and L RCT. She isn't using stairs much to do laundry, put things away. Pain location is L-S and described as ache. Pain scale is 2 on a ten point pain scale. Pain is worse with walking, mobility and better with rest. REHAB PROBLEM LIST: Increased Pain Decreased ROM Decreased Strength Impaired Transfers Decreased Endurance Decreased Balance Decreased Mobility Decreased Gait PREVIOUS MEDICAL HISTORY: 1991 R RCR, R DEANNA 1998, 2001 masectomy, B TKA 2009, perforated colon, lumbar OA with chronic LBP with mobility, gait. OCCUPATION: Retired, lives in a two story home with her , RW for short distance ambulation, was independent ambulator, shopped, community ambulation. OBJECTIVE: Posture: Heels about 6", trunk flexed ~25 degrees, mild postural sway. ROM: AROM lumbar spine WNL flexion, minimal extension. Hip PROM WNL. Ankles -10 degrees B in rearfoot neutral. Tight IT bands, hip flexors. Hamstring flexibility 60 deg. R, 70 deg. L. L shoulder AROM 90 deg. flexion, 70 deg. abd., IR L5, R shoulder flexion 120 deg., IR L5. Strength: LE's 4/5 to 4+/5. L ER 4-/5, L shoulder pain, supraspinatus 3+/5, pain limited. 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 Gait: RW with L prolonged stance, feet pass each other and clear the floor, reduced pelvic WS B. Independent gait 5 feet with shuffling gait, reaches for furniture. Balance: Parikh Balance Assessment 35, a high fall risk. Functional reach 3 inches, reaches to object on floor until 2" away. Double limb support only. Other Objective Findings: 30 min. of evaluation activity flared LBP 09/28. ASSESSMENT: Val Wallace presents with high fall risk, altered gait and balance, reduced endurance, L shoulder weakness after pelvic fracture and L RCT. She did well with balance and strengthening exercise. Short Term Goals 1 month: Val ambulates 100-200 feet with hurrycane on firm surface. 2 months: Short distance community ambulator with hurrycane, demonstrates steady postural control on uneven surfaces. Carries laundry baskets about the home, uses stairs in putting items away. 3 months: 100-300 distance hurrycane ambulation on uneven surfaces. 4 months: Low fall risk with community ambulation, independent ambulator over uneven surfaces. Patient's Goals Independent ambulation short community distances, reduce fall risk. PLAN: Patient to be seen for Manual Therapy/STM/MET Strengthening/condition Ice/Heat Range of Motion Spinal Stabilization Stretching Neuromuscular Re-ed Electrical Stim Gait Trg/Balance Trg Home Exercise Program 2x/Week for 4 Months Thank you for this referral. If you have any questions, comments, or concerns about this report or plan, please contact me at . MTDD
--- NOTE | 2018-03-16 17:47 | PT PLAN OF CARE ---
Physician: Dr. Alan Duffy Patient is being seen: 2x/week Therapist: Britany Wakefield, PT Medical Diagnosis: Pelvic fracture Treatment Diagnosis: Same, R26.89 Imbalance Date of Onset: 09/10/17 Date of Initial Evaluation: 02/04/18 Date patient was last seen: 03/04/18 Number of treatments: 10 Number of cancellations/No shows: 0 INTERVENTIONS: Strengthening/condition, Neuromuscular Re-ed, Gait Trg/Balance Trg GOALS: 1 month: Samantha ambulates 100-200 feet with hurrycane on firm surface. not met 2 months: Short distance community ambulator with hurrycane, demonstrates steady postural control on uneven surfaces. not met 3 months: 100-300 distance hurrycane ambulation on uneven surfaces. not met 4 months: Low fall risk with community ambulation (progressing), independent ambulator over uneven surfaces. not met PATIENT'S GOAL: Independent ambulation short community distances (not met), reduce fall risk (progressing). Patient Compliance: Excellent Prognosis: Excellent Reasons for continuing therapy: S: Val notes sit to stand transfers are easier. She still uses her RW for ambulation. Posture: Heels about 4", upright trunk, normal static postural control. ROM: Ankles 0 degrees B. L shoulder AROM 120 deg. flexion. Strength: LE's 4/5 except hip abductors R 2+/5, L 3-/5. Gait/Balance: RW feet almost passing each other, gait speed 1.0 to 1.2 ft/seconds. Parikh Balance Assessment improved to 46 from 35. Mobility: Sit<>emergency veterinary assistant 1attempt from low chair, steady posture, upright trunk with immediate standing. A/P: Val Wallace is improving balance, gait and needs to continue working these areas as well as strength to become a safe cane or independent community ambulator. If you agree, we'll continue PT 2x/week to goals set. MTDD
--- NOTE | 2018-04-29 16:38 | PT PLAN OF CARE ---
Physician: Dr. Alan Duffy Patient is being seen: 2x/week Therapist: Britany Wakefield, PT Medical Diagnosis: Pelvic fracture Treatment Diagnosis: Same, R26.89 Imbalance Date of Onset: 09/10/17 Date of Initial Evaluation: 02/04/18 Date patient was last seen: 04/29/18 Number of treatments: 20 Number of cancellations/No shows: 0 INTERVENTIONS: Strengthening/condition, Neuromuscular Re-ed, Gait Trg/Balance Trg, Home Exercise Program GOALS: 1 month: Samantha ambulates 100-200 feet with hurrycane on firm surface. (progressing - RW) 2 months: Short distance community ambulator with hurrycane (not met), demonstrates steady postural control on uneven surfaces (not met). 3 months: 100-300 distance hurrycane ambulation on uneven surfaces. (not met) 4 months: Low fall risk with community ambulation (progressing), independent ambulator over uneven surfaces (not met). PATIENT'S GOAL: Independent ambulation short community distances (not met), reduce fall risk (progressing). Patient Compliance: Excellent Prognosis: Excellent Reasons for continuing therapy: S: Val reports she's walking faster with her 4WW and denies pain. Posture: Heels 4" apart, upright trunk and steady. Strength: L hip abductors <3/5, R 3/5. Gait: 4WW with feet passing each other and clearing the floor, O2 88%. Turns < 4 seconds with control. Balance: Parikh Balance Assessment improved from 38 to 44/56, a 21% impairment. Val has improved ability to do standing with narrow SHADIA, hasn't attained single limb support yet. Mobility: Sit<>tie in hand 1 attempt from low chair, steady with immediate standing. A/P: Samantha Wallace is working hard to improve gait, endurance, balance. She could benefit from continued PT to achieve goals. If you agree, we'll continue 2x/week another 2-3 months. Thank you. TERRANCE
[~2018-05-04 14:30] MED LIST changes: -AMLO-111 PO; -AMLO-113 PO; +AMLO-125 PO; +AMLO-127 PO; -LOSA100T69 PO; +LOSA100T75 PO
[2018-05-05] MEDS ORDERED: SIMV10TA98 PO (11:31)
== END 2018-05-05 ==
LOC: PT 14:30
PROVIDERS: ATTEND Internal Medicine
DX: R53.1 Weakness (principal); R26.89 Other abnormalities of gait and mobility; S32.9XXA Fracture of unspecified parts of lumbosacral spine and pelvis, initial encounter for closed fracture; Z96.641 Presence of right artificial hip joint; Z96.653 Presence of artificial knee joint, bilateral; M54.5 Low back pain
CPT/HCPCS: 97162

== ENCOUNTER → 2018-06-08 | Outpatient (CLI) | payer MEDICARE, BC ==
[2017-09-11 12:29] VITALS: BMI 26.6
[2018-06-08 13:25] LABS: PLATELET COUNT, AUTOMATED 296 K/uL (150-450)
[2018-06-08 13:44] LABS: LDL CHOLESTEROL 54 mg/dl
== END ==
LOC: LAB 12:59
PROVIDERS: ATTEND Internal Medicine
DX: E87.1 Hypo-osmolality and hyponatremia (principal); M54.9 Dorsalgia, unspecified; E78.00 Pure hypercholesterolemia, unspecified; K21.9 Gastro-esophageal reflux disease without esophagitis; C50.919 Malignant neoplasm of unspecified site of unspecified female breast; I10 Essential (primary) hypertension; E03.9 Hypothyroidism, unspecified
CPT/HCPCS: 36415; 81001; 82040; 82247; 82310; 82374; 82435; 82465; 82565; 82947; 83718; 84075; 84132; 84155; 84295; 84439; 84443; 84450; 84460; 84478; 84520; 85025

== ENCOUNTER → 2018-07-09 | Outpatient (CLI) | payer MEDICARE, BC ==
[2017-09-11 12:29] VITALS: BMI 26.6
[~2018-07-09] MED LIST changes: +BARIUM SULFATE 176 GM BTL PO ONE; +BARIUM SULFATE 340 GM POWD ONE
--- NOTE | 2018-07-09 10:19 | RADIOLOGY IMAGING REPORT ---
[place]AC[place] [facility] [place]IENT NAME: Val Wallace : 1935 MR: [id number] V: [id number] EXAM DATE: ORDERING PHYSICIAN: KARLOS GREENE TECHNOLOGIST: Location: [facility] Patient: Val Wallace : 1935 Visit/Account:[id number] Date of Sevice: 07/09/2018 Study: MRI brain without the use of intravenous contrast Indication: Difficulty speaking Comparison study: None Technique: Multiplanar MRI sequences were obtained through the brain without the use of intravenous g adolinium contrast. The examination demonstrates no evidence of acute intracranial hemorrhage. There is no evidence of ex tra-axial collection or hydrocephalus. A diffusion-weighted sequence was performed and demonstrates no evidence of active ischemia. There is no evidence of active infarction. There are patchy areas of high T2-weighted signal present within the periventricular white matter. Th is is most consistent with chronic ischemia. There is no abnormal signal identified within the hospitality house supervisor ior perisylvian and left frontal lobe. The orbits are grossly unremarkable. There is no significant abnormality of the paranasal sinuses present. IMPRESSION: No acute intracranial abnormality identified. There is no evidence of active ischemia. There are chronic ischemic white matter changes present. Report Dictated By: Mamadou Chamberlain at 07/09/2018 10:04 AM Report E-Signed By: Mamadou Chamberlain at 07/09/2018 10:15 AM WSN:[email or web address]
--- NOTE | 2018-07-09 15:28 | RADIOLOGY IMAGING REPORT ---
FACILITY: [facility] PATIENT NAME: Val Wallace : 1935 MR: [id number] V: [id number] EXAM DATE: ORDERING PHYSICIAN: KARLOS GREENE TECHNOLOGIST: Location: [facility] - [place] Patient: Val Wallace : 1935 Visit/Account:[id number] Date of Sevice: 07/09/2018 Exam type: XR UPPER GI WITH AIR CONTRAST History: speech difficulty, dysphagia Comparison: None. Findings: Double contrast upper GI series was performed with thick and thin barium and air contrast. Study was slightly limited due to patient limited mobility. A small amount of laryngeal penetration and endot eboni aspiration was noted during the examination. Mild to moderate narrowing was identified withi n the cervical esophagus. Moderate to large gastroesophageal reflux was observed. No abnormality of the stomach duodenal bulb or duodenal C-loop was seen. The dose area product was 839.09 micro-Bertrand per meter squared IMPRESSION: 1. There is a moderate to large amount of gastroesophageal reflux. There was mild to moderate narro wing identified in the cervical esophagus A small amount of laryngeal penetration and endotracheal aspiration was noted during the examination. Report Dictated By: Barbara Zuniga MD at 07/09/2018 3:18 PM Report E-Signed By: Barbara Zuinga MD at 07/09/2018 3:23 PM WSN:[email or web address]
== END ==
LOC: MRI 07-02 05:22
PROVIDERS: ATTEND Internal Medicine
DX: K21.9 Gastro-esophageal reflux disease without esophagitis (principal); R13.13 Dysphagia, pharyngeal phase; R90.82 White matter disease, unspecified
CPT/HCPCS: 70551; 74246

== ENCOUNTER → 2018-07-27 | Outpatient (CLI) | payer MEDICARE, BC ==
[2017-09-11 12:29] VITALS: BMI 26.6
[~2018-07-27] MED LIST changes: +BARIUM SULFATE 148 GM POWDER ONE; -BARIUM SULFATE 176 GM BTL PO ONE; +BARIUM SULFATE 240 ML ORAL SUS (NECTAR) ONE; -BARIUM SULFATE 340 GM POWD ONE
--- NOTE | 2018-07-27 17:20 | RADIOLOGY IMAGING REPORT ---
FACILITY: [facility] PATIENT NAME: Val Wallace : 1935 MR: [id number] V: [id number] EXAM DATE: ORDERING PHYSICIAN: CLARISSA FORD TECHNOLOGIST: [place] [facility] [place]: Val Wallace : 1935 Visit/Account:[id number] Date of Sevice: 07/27/2018 Exam type: ESOPH VIDEO SWALLOWING History: Pharyngoesophageal dysphasia Comparison: None. Findings: The modified barium swallow was performed by the speech pathologist. Fluoroscopic assistance was pro vided. Patient received thin barium and various solids substances and a barium tablet. There was tr muriel pharyngeal penetration with thin liquids. Please see the speech pathologist report for complete details. The fluoroscopy dose area product was 630.72 micro-Bertrand per meter squared IMPRESSION: 1. As above Report Dictated By: Barbara Zuniga MD at 07/27/2018 5:15 PM Report E-Signed By: Barbara Zuniga MD at 07/27/2018 5:16 PM WSN:[email or web address]
--- NOTE | 2018-07-28 08:25 | SLP MODIFIED BARIUM SWALLOW ---
MODIFIED BARIUM SWALLOW STUDY REPORT Ordering Physician: Alan Duffy MD Clinician: Kinjal Mike MS, [facility]-PROFESSOR OF THEATRE Type of Assessment: MBSS Patient: Val Wallace : 37 Evaluation Date: 07/27/18 BACKGROUND The patient is an 82-year-old female who presents for an outpatient modified barium swallow study (MBSS) due to worsening symptoms of dysphagia. The pt previously participated in an MBSS in late April of this year due to sudden onset of vocal hoarseness and swallowing difficulties. Results indicated mild oropharyngeal dysphagia characterized by the following: oral phase deficits characterized by decreased rotary pattern for mastication, prolonged and laborious bolus formation, piecemeal deglutition and some lingual pumping. Pharyngeally, pt demonstrated mild reduction in tongue base retraction, and diminished hyolaryngeal elevation and excursion resulting in reduced epiglottic inversion with mild to moderate residue in the valleculae. This further resulted in difficulty achieving complete closure of the laryngeal vestibule, although space between the epiglottis and the arytenoid cartilages was minimal. Incomplete closure resulted in flash penetration during the swallow with trials of thin liquids. Material was quickly ejected with bottom to top closure of the vestibule. Of note, the curvature of the pts spine appeared to result in compression against the upper esophagus. This may be contributing to reported globus sensation. The pt was subsequently referred for outpatient PROFESSOR OF THEATRE services with primary emphasis placed on vocal deficits and secondary emphasis placed on review of safe swallow precautions. The pt was also referred for a GI consult due to concern for esophageal dysphagia. An upper GI series was completed with witnessed aspiration of barium liquid, in addition to mild to moderate narrowing of the cervical esophagus. EGD with possible dilation is pending. The pt was referred for a repeat MBSS due to observation of choking/coughing with consumption of thin liquids in the outpatient clinic, and pt/spousal report of worsening symptoms of dysphagia in home environment. ASSESSMENT Diagnosis: dysphagia Past Medical Hx: GERD Pain Scale (0-10): none reported; appears comfortable. LOC / Participation: Alert and cooperative. Follows instructions: Yes. Orientation: A&O x4 Sialorrhea: No Xerostomia: No Hygiene: WFL Supplemental Oxygen Use: No COPD Dx: No. Pain with Swallow: Denies Oral mechanism examination: Partially missing dentition, mild to moderately restricted movement of oral musculature In conjunction with radiology, the pt was seated in the lateral view and analyzed with assisted trials of the following consistencies: thin liquids via single cup sip and consecutive cup sip, straw sip, pureed solids, mechanically altered solids, advanced solids, and a 1cm barium pill immersed in pureed solids. Regular solids were not administered this date, as the pt reports she has been avoiding all hard/dry/crunchy consistencies. ORAL AND PHARYNGEAL STAGES: moderate oropharyngeal dysphagia Oral phase deficits characterized by restricted mandibular movement, decreased rotary pattern for mastication with prolonged and laborious bolus formation. Pt exhibited piecemeal deglutition and some lingual pumping with delayed anterior to posterior transit. The pt also struggled to transfer barium pill from the anterior to posterior oral cavity despite immersion in puree to support propulsion. The pt required 3-4 subsequent bites of puree propel material into pharynx. Bolus containment was good across trials with no premature posterior loss of material. Pharyngeally, pt demonstrated swallow onset at the level of the pyriform sinus with thin liquids, moderate reduction in tongue base retraction, mildly reduced pharyngeal stripping wave, and mild to moderately diminished hyolaryngeal elevation and excursion. Reduced tongue base retraction paired with reduction in hyolaryngeal excursion resulted in decreased epiglottic inversion with moderate residue in the valleculae. Residue in the vallecular space increased in quantity with trials of advanced solids vs moist, mechanically altered consistencies. Trace residue/coating was also consistently noted against the posterior pharyngeal wall. Reduced tongue base retraction and hyolaryngeal excursion further resulted in difficulty achieving complete epiglottic inversion for successful closure of the laryngeal vestibule, with relatively increased space between the epiglottis and the arytenoid cartilages in comparison to the previous study. Incomplete closure resulted in penetration of thin liquids during the swallow above the vocal folds with complete ejection when consuming small, tsp sized sips (PAS 2). With larger sips, thin liquid material penetrated to the level of the vocal folds. Penetration was also noted before the swallow as a result of delayed swallow onset with larger bolus sizes, and with consecutive sips of thin liquid. Again, material was ejected from the laryngeal vestibule (PAS 4). In comparison to the previous study, pharyngeal weakness has progressed to a mild degree with relatively reduced airway protection, and mildly increased quantity and depth of penetrated material (thin liquids only). No aspiration was observed, despite weak, strangled cough and gagging response while under fluroro. The pt may be hypersensitive to penetrated liquids. Laryngeal response appears correlated to sudden onset of vocal deficits with difficulty efficiently moving the vocal folds. Continue to recommend neurological consult given sudden changes in swallow and vocal function. Use of chin tuck helped to improve airway protection and eliminate penetration. Chin tuck, alternation of consistencies, and execution of double swallow also resulted in improved pharyngeal clearance. Chin tuck and alternating solid foods with pureed consistencies was particularly effective in clearing residual material from the vallecular space. ESOPHAGEAL STAGE Contents (barium pill, barium liquid) slow to pass through the lower esophagus. GI has been consulted. Attempted and recommended strategies: chin tuck to improve airway protection and promote pharyngeal clearance, use of double swallow to clear pharyngeal residue, alternation of 2-3 bites with a drink of liquid or pureed solids to further support pharyngeal clearance. Penetration/Aspiration Scale (PAS)*: Thin liquids (small, single sips): Score of 2, Material enters the airway (briefly), remains above the vocal folds, and is ejected from the airway without residue. Thin liquids (large sips, consecutive sips): Score of 4, Material enters the airway, contacts the vocal folds, and is ejected from the airway without residue All other consistencies: Score of 1, Material does not enter airway *(Drew et al. 1996) SUMMARY and RECOMMENDATIONS Aspiration Risk: Mildly to moderately elevated. Negative prognostic indicators include reported hx of choking, mild progression of dysphagia with increased depth and quantity of penetrated material in comparison to prior MBSS. Dysphagia Outcome Severity Scale: Level 4; mild to moderate oropharyngeal dysphagia. It is recommended that the pt avoid problematic foods to compensate for oral and pharyngeal weakness, including dry/crunchy textures. This would be considered a dysphagia advanced diet. It is also recommended that the pt adhere to strategies as outlined below. Speech Therapy Need It is recommended that the pt continue to receive ST in an outpatient setting with increased focus on oropharyngeal strengthening exercises and ongoing instruction in compensatory swallow strategies. RECOMMENDATIONS 1. Diet: dysphagia advanced (avoid dry, crunchy textures, add extra moisture to dry foods), thin liquids. 2. Medications: Whole, immersed in pureed solids with successive bites of puree to assist with anterior to posterior transit in oral cavity and to assist with clearance through esophagus. Consider crushing medications if difficulty persists. 3. Compensatory Techniques: regular oral hygiene, upright positioning during PO intake, tuck chin during swallow, consume small bites/sips, one bite/sip at a time, alternate 2-3 bites with a drink or bite of pureed food 4. Referral: outpatient speech therapy, neurology referral Thank you for this referral. Kinjal Mike M.S., [facility]-PROF[employer]OR [employer]AT[employer] Speech Therapist [*] [facility]
== END ==
LOC: RAD 00:58
PROVIDERS: ATTEND Otolaryngology
DX: R13.13 Dysphagia, pharyngeal phase (principal)
CPT/HCPCS: 74230

== ENCOUNTER 2018-08-03 14:30 | Outpatient (RCR) | payer MEDICARE, BC ==
[2017-09-11 12:29] VITALS: BMI 26.6
--- NOTE | 2018-05-06 17:18 | PT PLAN OF CARE ---
Physician: Dr. Alan Duffy Business office 3 month note Patient is being seen: 2x/week Therapist: Britany Wakefield PT Medical Diagnosis: Pelvic fracture Treatment Diagnosis: Same, R26.89 Imbalance Date of Onset: 09/10/17 Date of Initial Evaluation: 02/04/18 Date patient was last seen: 05/06/18 Number of treatments: 22 Number of cancellations/No shows: 0 INTERVENTIONS: Strengthening/condition, Neuromuscular Re-ed, Gait Trg/Balance Trg, Home Exercise Program GOALS: 1 month: Samantha ambulates 100-200 feet with hurrycane on firm surface. (met, but not safe) 2 months: Short distance community ambulator with hurrycane (progressing), demonstrates steady postural control on uneven surfaces (not met). 3 months: 100-300 distance hurrycane ambulation on uneven surfaces. (not met) 4 months: Low fall risk with community ambulation (progressing), independent ambulator over uneven surfaces (not met). PATIENT'S GOAL: Independent ambulation short community distances (not met), reduce fall risk (progressing). Patient Compliance: Excellent Prognosis: Excellent Reasons for continuing therapy: S: This is our business office's 3 month note, done one week after Val's last POC. She reports she participated in errands with her yesterday with her 4WW. Posture: Heels 4" apart, upright trunk and steady. Strength: L hip abductors <3/5, R 3/5. Gait: Today Val advanced to single point cane gait training with slower cadance, difficulty with cane placement, CGA/min. assist for balance, less Trendelenberg, feet sometimes passing each other. Balance: Parikh Balance Assessment on 04/29/18 was 44/56, a 21% impairment. Val has improved ability to do standing with narrow SHADIA, hasn't attained single limb support yet. Mobility: Sit<>telemedicine physician 1 attempt from low chair, steady with immediate standing. A/P: Val's advancing gait ability well. She needs a lot of balance and strengthening, gait training to be safe with a cane. If you agree, we'll continue 2x/week another 2 months to goals set. Thank you. TERRANCE
--- NOTE | 2018-06-03 16:42 | SPEECH INITIAL EVALUATION ---
VOCAL PRODUCTION EVALUATION REPORT NAME: Val Wallace EVALUATION DATE: 06/03/2018 DATE OF : 1935 DIAGNOSIS: moderate dysphonia; mild oropharyngeal dysphagia EXAMINER: Kinjal Mike MS, [facility]-CHIEF MECHANICAL ENGINEER PHYSICIAN: Alan Duffy MD BACKGROUND The patient is an 82-year-old female who presents for a vocal production evaluation. The pt was referred for further assessment of voice following participation in an outpatient modified barium swallow study (MBSS) due to sudden onset of vocal hoarseness and difficulty swallowing. Pt underwent endoscopy in early April 2018 due to vocal concerns. Results were normal: nasopharynx, oropharynx, hypopharynx, larynx clear. Bilateral vocal folds symmetrically mobile. Modified barium swallow study results were reported as follows: Oral phase deficits characterized by decreased rotary pattern for mastication with prolonged and laborious bolus formation. Pt exhibited piecemeal deglutition and some lingual pumping with delayed anterior to posterior transit. Pharyngeally, pt demonstrated mild reduction in tongue base retraction, and diminished hyolaryngeal elevation and excursion. This resulted in reduced epiglottic inversion with mild to moderate residue in the valleculae. This further resulted in difficulty achieving complete closure of the laryngeal vestibule, although space between the epiglottis and the arytenoid cartilages was minimal. Incomplete closure resulted in flash, penetration during the swallow with trials of thin liquids. Material was quickly ejected with bottom to top closure of the vestibule (PAS 2). Of note, the curvature of the pts cervical spine appeared to result in compression against the upper esophagus. This may be contributing to reported globus sensation. Contents (barium pill, barium liquid) slow to pass through the lower esophagus. Stasis observed in distal esophagus. Pt also with history of GERD. A GI referral is recommended. In addition to a GI referral, it was recommended that the pt receive ST in an outpatient setting, primarily to further evaluate vocal production. Vocal strain, hoarseness, and decreased speaking volume noted during MBSS participation. ST was also recommended for brief course of education and instruction in compensatory swallow strategies. Per documentation from most recent clinic visit, a GI referral is pending. VOCAL PRODUCTION ASSESSMENT Daily water intake: 2-3 glasses per day Throat clearing/Coughing: infrequent; not noted during evaluation encounter. Caffeine: 2 glasses of coffee per day Smoking hx: no Alcohol intake: 2 glasses per day Reflux hx: not diagnosed. GI referral is pending due to suspected esophageal dysphagia per MBSS results. COPD hx: No. Breath Support: mixed clavicular/diaphragmatic. Nasal inhalation. Maximum Phonation Time: 3 seconds (female average: 15 seconds) s/z Ratio: 2.0 potentially indicative of laryngeal pathology; however, not supported by endoscopy. Of note, maximum /s/ production time was 4 seconds. Maximum /z/ production time was 2 seconds. Pt often unable to phonate /z/ due to severity of vocal strain. CAPE-V Roughness: mildly deviant - intermittent. Breathiness: normal/absent. Strain: severely deviant - consistent. Level of strain often impeding ability pass air for successful initiation of vocal production. Pitch: mildly deviant - intermittent. Loudness: moderately deviant - consistent. Overall Severity: moderate to severely deviant vocal quality characterized by severe vocal strain, intermittent hoarseness, decreased endurance for lengthy utterances , and moderately reduced speaking volume. Voice Handicap Index (VHI) Perceptual Measurement: VHI was completed to analyze perceived vocal changes and the functional impact of these changes the pt's life. The VHI is composed of three categories; physical, functional, and emotional subtests. An overall score of 0-30 reflects a minimal handicap, 31-60 reflects moderate handicap, and 60-120 is indicative of severe impairment. Physical Impairment: 30 Functional Impairment: 33 Emotional Impairment: 32 Total score= 95; severe perception of handicap. Based on the VHI, pt demonstrates severe self-perception of vocal handicap across physical, functional, and emotional domains. Results indicate that the pts vocal deficits are resulting in a significant, negative impact on functional communication and resulting in emotional distress. 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 Deficits most notably characterized by severe vocal strain, moderate reduction in speaking volume, and intermittent vocal hoarseness with variable pitch breaks. Degree of vocal strain often impeded ability to successfully pass air through the glottis for vocal initiation. Strain also resulted in reduced length of utterance (appx 2-3 words in lenght). Severity of impairment worsened throughout participation in vocal assessment. Based on evaluation results, voice therapy is warranted to provide patient instruction in behavioral compensations and vocal exercises to minimize negative impact of changes in voice production on functional communication and emotional distress. An individualized program and home program will be established and trained. Pt was provided education re: vocal hygiene, normal voice production, and goals for interventions. Swallow function was not formally assessed on this date. Portion of time was spent reviewing results of modified barium swallow study and providing the patient and her spouse with a written handout re: MBSS recommendations. Will continue to monitor swallow status and review educational information. Pt was informally screened with trials of thin liquids. No overt signs of aspiration observed, consistent with MBSS results. GI referral pending. Prognosis: Good. Strong motivation to participate. Support via significant other. Recommendations Pt agreeable to ST 1x/wk, 8 wks. Encouraged initiating treatment plan with higher frequency of weekly visits; however, the pt reported feeling overwhelmed by scheduling and transportation constraints. ST will primarily focus on vocal dysphonia. Will also provide ongoing review of compensatory swallow strategies to minimize risk for aspiration, and will continuously monitor potential changes in swallow status. POC Short Term Goals 1. Pt will independently complete vocal exercise program with focus on laryngeal relaxation to minimize vocal strain and improve overall vocal quality / functional communication. 2. Pt will improve max phonation time from 3 to 8 seconds with good vocal quality including reduced strain and appropriate vocal intensity as judged by perceptual measures via patient and speech language pathologist. 3. Pt will report a 30+ point reduction on the Voice Handicap Index (VHI), reducing perception of vocal handicap from a severe to a moderate level of impairment. Curriculum Coach Goal Pt will demonstrate functional vocal production and overall quality of voice during conversation at home, and in the community. Thank you for this referral. Please call [phone] with further questions or concerns. Respectfully, Kinjal Mike M.S., CCC-CHIEF MECHANICAL ENGINEER Physician Signature Date [*] MTDD
--- NOTE | 2018-06-10 18:17 | PT PLAN OF CARE ---
Physician: Dr. Alan Duffy Patient is being seen: 2x/week Therapist: Britany Wakefield PT Medical Diagnosis: Pelvic fracture Treatment Diagnosis: Same, R26.89 Imbalance Date of Onset: 09/10/17 Date of Initial Evaluation: 02/04/18 Date patient was last seen: 06/10/18 Number of treatments: 32 Number of cancellations/No shows: 0 INTERVENTIONS: Strengthening/condition, Range of Motion, Stretching, Gait Trg/Balance Trg, Home Exercise Program GOALS: 1 month: Samantha ambulates 100-200 feet with hurrycane on firm surface. (met but not safe) 2 months: Short distance community ambulator with hurrycane (not met), demonstrates steady postural control on uneven surfaces (not met). 3 months: 100-300 distance hurrycane ambulation on uneven surfaces. (not met) 4 months: Low fall risk with community ambulation (progressing), independent ambulator over uneven surfaces (not met). PATIENT'S GOAL: Independent ambulation short community distances (not met), reduce fall risk (progressing). Patient Compliance: Excellent Prognosis: Excellent Reasons for continuing therapy: S: Val reports she's discouraged that she's so fatigued in the last three days. We discussed her low thyroid, the cold weather system with her OA, and the increased gait training with her Hurrycane in the last week all have fatigued her. She denies falls. Posture: Heels about 6", trunk upright, steady standing posture. ROM: Cervical extension 50%, tight lower cervical, flexed upper thoracic spine. Strength: Sit/stand from 21" height one attempt, 19" height 3 attempts. Gait: Upright trunk, feet clear the floor and pass each other with 4WW, hurry cane with flexing posture after 10-12 feet, able to weave, turn with supervision. Balance: Parikh Balance Assessment reduced to 37%, with less R WS, but tries to attain single leg stand. Standing tolerance <30 seconds with feet close together. A/P: Val Wallace is more fatigued with pushing her gait with a Hurrycane. I feel her energy and balance improvement will happen if we focus more on balance training, strengthening, and keep gait with 4WW. If you agree, we'll continue 2x/week two months. Thank you. TERRANCE
--- NOTE | 2018-07-22 16:08 | PT PLAN OF CARE ---
Physician: Dr. Alan Duffy Patient is being seen: 2x/week Therapist: Britany Wakefield, PT Medical Diagnosis: Pelvic fracture Treatment Diagnosis: Same, R26.89 Imbalance Date of Onset: 09/10/17 Date of Initial Evaluation: 02/04/18 Date patient was last seen: 07/22/18 Number of treatments: 42 Number of cancellations/No shows: 0 INTERVENTIONS: Strengthening/condition, Neuromuscular Re-ed, Gait Trg/Balance Trg, Home Exercise Program GOALS: 1 month: Samantha ambulates 100-200 feet with hurrycane on firm surface. (not met) 2 months: Short distance community ambulator with hurrycane (not met), demonstrates steady postural control on uneven surfaces (not met). 3 months: 100-300 distance hurrycane ambulation on uneven surfaces. (not met) 4 months: Low fall risk with community ambulation (progressing), independent ambulator over uneven surfaces (not met). PATIENT'S GOAL: Independent ambulation short community distances (not met), reduce fall risk (progressing). Patient Compliance: Excellent Prognosis: Excellent Reasons for continuing therapy: S: Val denies falls. Her reports she's moving slower and has freezing episodes now. Val's voice is a whisper some days, today she was able to speak 3 words before her voice faded. Posture: Heels 6" apart, upright trunk, steady. Strength: Quads R 4/5, L 4-/5, L hip abd. 3/5, R 3+/5. Gait: With Parkinson-like exercises, Val's able to ambulate with 4WW with feet clearing tamera floor and passing each other without cues. She now turns slowly but safely independent of AD and WS is improved. Balance: Parikh Balance Assessment improved to 40, still a fall risk. Val can now attempt to lift a foot for single leg stand, <1 sec. hold, does low standing hip flexion, more difficulty standing on L LE due to hip weakness. Mobility: Sit<>bonding molder 3 attempts from low chair, 1 attempt from 23" height, immediate steady standing balance. A/P: Taking a neurological exercise approach improved Val Mcghees ambulation. She is still a good candidate to continue PT to improve balance, safer gait. If you agree, we'll continue 2x/week through August, including LSVT BIG-type exercises as well as gait, balance and strength training. Thank you. TERRANCE
[~2018-08-03 14:30] MED LIST changes: -BARIUM SULFATE 148 GM POWDER ONE; -BARIUM SULFATE 240 ML ORAL SUS (NECTAR) ONE
== END 2018-08-04 ==
LOC: PT 14:30
PROVIDERS: ATTEND Internal Medicine
DX: Z47.89 Encounter for other orthopedic aftercare (principal); R26.89 Other abnormalities of gait and mobility; S32.9XXA Fracture of unspecified parts of lumbosacral spine and pelvis, initial encounter for closed fracture
CPT/HCPCS: 92524

== ENCOUNTER 2018-08-18 01:58 | Day surgery (SDC) | payer MEDICARE, BC ==
[2017-09-11 12:29] VITALS: Ht 147.3 cm; Wt 50.8 kg
[2018-08-18] VITALS (7 sets, daily range): BP systolic 95–154; BP diastolic 51–81
[~2018-08-18] VITALS: Ht 147.3 cm; Wt 50.8 kg
[~2018-08-18 01:58] MED LIST changes: +GABA250S6 PO
[2018-08-18] MEDS ORDERED: PROPOFOL EMUL(*) 10MG/ML 20 ML 40 ML ONE (08:47)
[2018-08-18] MEDS ORDERED: LIDOCAINE MPF 1% 5 ML VIAL ONE (08:47)
[2018-08-18] MEDS ORDERED: NORMOSOL R SOLN(*) 1000 ML BAG 1,000 ML IV PRN (09:00)
[2018-08-18] MEDS ORDERED: LIDOCAINE/SOD BICARB 8.4% SYR ID ONE (09:00)
--- NOTE | 2018-08-18 10:56 | NUR ---
PT. SIDE LAYING. UNRESPONSIVE.
--- NOTE | 2018-08-18 11:00 | NUR ---
PT. AWAKE. DROWSY. REORIENTED TO TIME, LOCATION, AND PLACE. REPOSITIONED TO SEMI-LOZANO. ENCOURAGED TO DBC. LIGHT SUCTION PROVIDED.
--- NOTE | 2018-08-18 11:04 | Short(Outpt) Discharge Summary ---
Discharge Summary Reason for Hosp/Final Diag: (1) Dysphagia Hospital Course & Plan: pt presented for egd. she tolerated the procedure well. she will be discharged home when criteria met. Departure Discharge to: Home Discharge Instructions Home Meds Active Scripts Gabapentin (GABAPENTIN) 250 Mg/5 Ml Solution, 300 MG PO 2-3XD, #300 ML 6 Refills Prov:KARLOS GREENE MD 08/14/18 Simvastatin (SIMVASTATIN) 10 Mg Tablet, 10 MG PO HS, #90 TAB 1 Refill Prov:KARLOS GREENE MD 08/14/18 Tramadol Hcl (TRAMADOL HCL) 50 Mg Tablet, 50 MG PO QID PRN for PAIN, #120 TAB 5 Refills Prov:KARLOS GREENE MD 07/14/18 Pantoprazole Sodium (PANTOPRAZOLE SODIUM) 40 Mg Tablet.dr, 40 MG PO BID, #60 TAB.SR 6 Refills Prov:KARLOS GREENE MD 06/18/18 Levothyroxine Sodium (LEVOTHYROXINE SODIUM) 75 Mcg Tablet, 75 MCG PO QDAY, #90 TAB 2 Refills Prov:KARLOS GREENE MD 06/08/18 Losartan Potassium (LOSARTAN POTASSIUM) 100 Mg Tablet, 1 TAB PO QDAY, #90 TAB 3 Refills Prov:KARLOS GREENE MD 09/05/17 Amlodipine Besylate (AMLODIPINE BESYLATE) 5 Mg Tablet, 1 TAB PO QDAY, #90 TAB 4 Refills Prov:KARLOS GREENE MD 05/13/17 Acetaminophen (ACETAMINOPHEN) 500 Mg Tablet, 500-1000 MG PO Q8H PRN for PAIN for 30 Days, TAB Prov:ISABELA LOPEZ MD 11/10/16 Reported Medications Lactobacillus Acidophilus (PROBIOTIC) 1 Each Capsule, 1 EACH PO DAILY, CAPSULE 09/10/17 Cholecalciferol (Vitamin D3) (VITAMIN D3) 1,000 Unit Tablet, 1 TAB PO DAILY 12/22/13 Multivitamin (DAILY VITAMIN FORMULA) 1 Each Tablet, 1 TAB PO DAILY 12/22/13 Calcium Carbonate/Vitamin D3 (CALCIUM + VITAMIN D TABLET) 1 Each Tablet, 1 TAB PO DAILY 12/22/13 Discontinued Scripts Gabapentin (GABAPENTIN) 300 Mg Capsule, 300 MG PO QID PRN for pain, #240 CAPSULE 4 Refills Prov:KARLOS GREENE MD 12/16/17 Activity: As Tolerated Special Instructions: resume previous diet RAHUL LECHUGA Aug 18, 2018 11:03
--- NOTE | 2018-08-18 11:20 | NUR ---
RN REMAINS IN ROOM, SUCTION PROVIDED, PRN. PT. GIVEN GLASSES AND TEETH. ASKED IF WOULD LIKE PO INTAKE. DECLINED AT THIS TIME. DENIES PAIN.
--- NOTE | 2018-08-18 11:31 | NUR ---
pt. placed on ra. spo2 around 91% ra. attempting to place dentures.
--- NOTE | 2018-08-18 11:40 | NUR ---
PT. DESATS ON RA. DOWN TO 84%. ENCOURAGED TO DEEP BREATH AND COUGH. SPO2 BACK UP TO 91%. PT. GIVEN SIPS OF THOMAS AMY. TOLERATING.
--- NOTE | 2018-08-18 11:45 | NUR ---
RN INTO ROOM TO ASSESS PT. DESAT TO 84% ON RA. PLACED ON 2L DUE TO CONTINUED DESATURATION. DENIES PAIN. DOES NOT WANT ADDITIONAL PO INTAKE. ENCOURAGED TO COUGH AND DEEP BREATH. REQUESTING DISCHARGE. OKAY WITH HOME OXYGEN. DR. DENT WOULD LIKE PT. TO GO HOME ON 2L NC AND TO FOLLOW UP WITH PCP IN TWO DAYS TO REASSESS OXYGEN.
--- NOTE | 2018-08-18 12:10 | NUR ---
ORTHOSTATICS WNL. PT. DENIED SYMPTOMS. RN ASSISTED PT. WITH DRESSING. PT. ABLE TO DRESS WITHOUT CONCERNS.
--- NOTE | 2018-08-18 12:15 | NUR ---
PT. TRANSFERRED TO WHEELCHAIR. AWAITING [facility] RESPIRATORY TO DISCHARGE PT.
--- NOTE | 2018-08-18 12:20 | NUR ---
[facility] RESP INTO SEE PT AND FAMILY. OXYGEN TEACHING PROVIDED. STATED UNDERSTANDING. RN TO ASSIST WITH DISCHARGE.
--- NOTE | 2018-08-18 12:34 | NUR ---
PT. DISCHARGED. RN CONTACTED DR. GREENE'S OFFICE TO SCHEDULE FOLLOW UP APPOINTMENT TO REASSESS OXYGEN.
== END 2018-08-18 12:34 | disposition home or self-care (01) ==
LOC: OR 01:58
PROVIDERS: ATTEND Surgery
DX: K22.2 Esophageal obstruction (principal); K29.70 Gastritis, unspecified, without bleeding
CPT/HCPCS: 43249; J2001; J2704; C1726

== ENCOUNTER 2018-09-03 17:31 | Emergency (ER) | payer MEDICARE, BC ==
[2017-09-11 12:29] VITALS: Wt 54.4 kg
--- NOTE | 2018-09-03 17:28 | ER Report ---
History and Physical Time Seen By MD: 17:28 HPI/ROS CHIEF COMPLAINT: Not eating or drinking for past several days HISTORY OF PRESENT ILLNESS: 83-year-old female patient presents to the emergency room with complaint of not eating or drinking for the past several days. Patient is unable to verbalize what is going on and gives majority of history. He states the patient had a sudden onset of hoarseness and difficulty with speech. She also then developed difficulty with swallowing. He states that this seemed to progress and they were seeing a specialist in [place] who referred them to a specialist in [place]. He states they've been going down there but has not gotten any answers. He states over the last several days that she has had worsening of her ability to swallow. He states that also when she is not been able keep anything down. He denies any fevers or chills. He states that he is noticed significant decrease in muscle mass in her legs and is concerned. states that there has been some concern about possible ALS, however nobody has told him anything. REVIEW OF SYSTEMS: Respiratory: No cough, no dyspnea. Cardiovascular: No chest pain, no palpitations. Gastrointestinal: No vomiting, no abdominal pain. Musculoskeletal: No back pain. Allergies: Coded Allergies: Sulfa (Sulfonamide Antibiotics) (Verified Allergy, Intermediate, 10/23/17) sulfamethoxazole (Verified Allergy, Intermediate, 10/23/17) Flushing of face, Rash to entire body. trimethoprim (Verified Allergy, Intermediate, 10/23/17) Flushing of face, Rash to entire body. Penicillins (Verified Allergy, Mild, 10/23/17) MIKE Inhibitors (Verified Allergy, Unknown, COUGH, 10/23/17) NSAIDS (Non-Steroidal Anti-Inflamma (Verified Allergy, Unknown, UNKNOWN, 10/23/17) cephalexin (Verified Allergy, Unknown, UNKNOWN, 10/23/17) erythromycin base (Verified Allergy, Unknown, UNKNOWN, 10/23/17) spironolactone (Verified Allergy, Unknown, UNKNOWN, 10/23/17) Home Meds Active Scripts Amlodipine Besylate (AMLODIPINE BESYLATE) 5 Mg Tablet, 1 TAB PO QDAY, #90 TAB 1 Refill Prov:KARLOS DUFFY MD 08/27/18 Gabapentin (GABAPENTIN) 250 Mg/5 Ml Solution, 300 MG PO 2-3XD, #300 ML 6 Refills Prov:KARLOS DUFFY MD 08/14/18 Simvastatin (SIMVASTATIN) 10 Mg Tablet, 10 MG PO HS, #90 TAB 1 Refill Prov:KARLOS DUFFY MD 08/14/18 Tramadol Hcl (TRAMADOL HCL) 50 Mg Tablet, 50 MG PO QID PRN for PAIN, #120 TAB 5 Refills Prov:KARLOS DUFFY MD 07/14/18 Pantoprazole Sodium (PANTOPRAZOLE SODIUM) 40 Mg Tablet.dr, 40 MG PO BID, #60 TAB.SR 6 Refills Prov:KARLOS DUFFY MD 06/18/18 Levothyroxine Sodium (LEVOTHYROXINE SODIUM) 75 Mcg Tablet, 75 MCG PO QDAY, #90 TAB 2 Refills Prov:KARLOS DUFFY MD 06/08/18 Losartan Potassium (LOSARTAN POTASSIUM) 100 Mg Tablet, 1 TAB PO QDAY, #90 TAB 3 Refills Prov:KARLOS DUFFY MD 09/05/17 Acetaminophen (ACETAMINOPHEN) 500 Mg Tablet, 500-1000 MG PO Q8H PRN for PAIN for 30 Days, TAB Prov:ISABELA LOPEZ MD 11/10/16 Reported Medications Lactobacillus Acidophilus (PROBIOTIC) 1 Each Capsule, 1 EACH PO DAILY, CAPSULE 09/10/17 Cholecalciferol (Vitamin D3) (VITAMIN D3) 1,000 Unit Tablet, 1 TAB PO DAILY 12/22/13 Multivitamin (DAILY VITAMIN FORMULA) 1 Each Tablet, 1 TAB PO DAILY 12/22/13 Calcium Carbonate/Vitamin D3 (CALCIUM + VITAMIN D TABLET) 1 Each Tablet, 1 TAB PO DAILY 12/22/13 Past Medical/Surgical History Patient has a past medical history of migraines, hypertension, hyperlipidemia, perforated colon, reflux, arthritis rib fractures, left wrist fracture, pelvis fracture, back pain, dysphagia, hypothyroidism, alcohol use, breast cancer. Patient has surgical history of repair of a perforated colon, appendectomy, hysterectomy, right hip replacement, right shoulder surgery, tonsillectomy, left mastectomy, eye surgery. Reviewed Nurses Notes: Yes Hx Smoking: No Smoking Status: Never Smoker Hx Substance Use Disorder: No Hx Alcohol Use: Yes Constitutional Vital Sign - Last 24 Hours 09/03/18 09/03/18 09/03/18 09/03/18 17:28 18:00 18:30 18:35 Temp 97.8 Pulse 79 77 82 80 Resp 16 20 18 16 B/P (MAP) 139/72 139/76 (97) 155/81 (105) Pulse Ox 92 90 95 94 O2 Delivery Room Air 09/03/18 09/03/18 09/03/18 09/03/18 19:00 19:05 19:20 19:30 Pulse 83 81 Resp 15 26 B/P (MAP) 148/81 (103) 148/82 (104) Pulse Ox 100 09/03/18 09/03/18 09/03/18 09/03/18 19:35 19:50 20:00 20:05 Pulse 76 82 74 Resp 25 12 8 B/P (MAP) 135/72 (93) Pulse Ox 97 09/03/18 09/03/18 20:20 20:30 Pulse 69 Resp 12 B/P (MAP) 144/75 (98) Pulse Ox 99 Physical Exam General Appearance: The patient is alert, has no immediate need for airway protection and no current signs of toxicity. ENT: Tympanic membranes are pearly-bertrand, auditory canals are patent, mixed mem branes are moist, is unable to visualize the posterior pharynx secondary to patient's tongue. Respiratory: Chest is non tender, lungs are clear to auscultation. Cardiac: regular rate and rhythm Gastrointestinal: Abdomen is soft and non tender, no masses, bowel sounds normal. Musculoskeletal: Neck: Neck is supple and non tender. Extremities have full range of motion and are non tender. Skin: No rashes or lesions. DIFFERENTIAL DIAGNOSIS: After history and physical exam differential diagnosis was considered for dysphagia, inability to eat, worsening of muscle weakness, urinary tract infection, pneumonia Medical Decision Making Data Points Result Diagram: 09/03/18 1744 09/03/18 1744 Laboratory Hematology Test 09/03/18 00:00 09/03/18 17:41 09/03/18 17:44 09/03/18 17:48 Urine Color Yellow Urine Clarity Clear Urine pH 7.0 pH (4.8-9.5) Urine Specific Alborn 1.020 Urine Protein Negative mg/dL (NEGATIVE) Urine Glucose (UA) Negative mg/dL (NEGATIVE) Urine Ketones Negative mg/dL (NEGATIVE) Urine Blood Negative (NEGATIVE) Urine Nitrite Negative (NEGATIVE) Urine Bilirubin Negative (NEGATIVE) Urine Urobilinogen 4.0 mg/dL (0.2-1.9) Urine Leukocyte Esterase Negative (NEGATIVE) Urine RBC 1 /HPF (0-2/HPF) Urine WBC 2 /HPF (0-5/HPF) Urine Squamous Epithelial Cells None /LPF (NONE-FEW) Urine Bacteria Negative /HPF (NONE-FEW) Urine Hyaline Casts Few /LPF (NONE-FEW) Urine Mucus None /HPF (NONE-FEW) Urine Opiates Screen Negative Urine Barbiturates Screen Negative Ur Tricyclic Antidepressants Screen Negative Urine Phencyclidine Screen Negative Urine Amphetamines Screen Negative Urine Benzodiazepines Screen Negative Urine Cocaine Screen Negative Urine Cannabinoids Screen Positive Red Blood Count 4.73 M/uL (4.17-5.56) Mean Corpuscular Volume 96.5 fL (80.0-96.0) Mean Corpuscular Hemoglobin 32.8 pg (26.0-33.0) Mean Corpuscular Hemoglobin Concent 34.0 g/dL (32.0-36.0) Red Cell Distribution Width 13.8 % (11.5-14.5) Mean Platelet Volume 8.7 fL (7.2-11.1) Neutrophils (%) (Auto) 64.5 % (39.4-72.5) Lymphocytes (%) (Auto) 21.2 % (17.6-49.6) Monocytes (%) (Auto) 13.3 % (4.1-12.4) Eosinophils (%) (Auto) 0.6 % (0.4-6.7) Basophils (%) (Auto) 0.4 % (0.3-1.4) Nucleated RBC Relative Count (auto) 0.1 /100WBC Neutrophils # (Auto) 3.9 K/uL (2.0-7.4) Lymphocytes # (Auto) 1.3 K/uL (1.3-3.6) Monocytes # (Auto) 0.8 K/uL (0.3-1.0) Eosinophils # (Auto) 0.0 K/uL (0.0-0.5) Basophils # (Auto) 0.0 K/uL (0.0-0.1) Nucleated RBC Absolute Count (auto) 0.00 K/uL Sodium Level 137 mmol/L (137-145) Potassium Level 3.5 mmol/L (3.5-5.0) Chloride Level 97 mmol/L (98-107) Carbon Dioxide Level 31 mmol/L (22-31) Blood Urea Nitrogen 17 mg/dl (7-18) Creatinine 0.80 mg/dl (0.52-1.04) Glomerular Filtration Rate Calc > 60.0 Random Glucose 107 mg/dl (75-110) Calcium Level 9.0 mg/dl (8.4-10.2) Total Bilirubin 0.6 mg/dl (0.2-1.3) Aspartate Amino Transf (AST/SGOT) 28 U/L (0-35) Alanine Aminotransferase (ALT/SGPT) 25 U/L (0-56) Alkaline Phosphatase 96 U/L (0-126) Ammonia < 9 UMOL/L (9-33) Troponin I < 0.012 ng/ml Total Protein 6.8 g/dl (6.3-8.2) Albumin 3.7 g/dl (3.5-5.0) Whole Blood Glucose 93 mg/DL (75-110) Chemistry Test 09/03/18 00:00 09/03/18 17:41 09/03/18 17:44 09/03/18 17:48 Urine Color Yellow Urine Clarity Clear Urine pH 7.0 pH (4.8-9.5) Urine Specific Alborn 1.020 Urine Protein Negative mg/dL (NEGATIVE) Urine Glucose (UA) Negative mg/dL (NEGATIVE) Urine Ketones Negative mg/dL (NEGATIVE) Urine Blood Negative (NEGATIVE) Urine Nitrite Negative (NEGATIVE) Urine Bilirubin Negative (NEGATIVE) Urine Urobilinogen 4.0 mg/dL (0.2-1.9) Urine Leukocyte Esterase Negative (NEGATIVE) Urine RBC 1 /HPF (0-2/HPF) Urine WBC 2 /HPF (0-5/HPF) Urine Squamous Epithelial Cells None /LPF (NONE-FEW) Urine Bacteria Negative /HPF (NONE-FEW) Urine Hyaline Casts Few /LPF (NONE-FEW) Urine Mucus None /HPF (NONE-FEW) Urine Opiates Screen Negative Urine Barbiturates Screen Negative Ur Tricyclic Antidepressants Screen Negative Urine Phencyclidine Screen Negative Urine Amphetamines Screen Negative Urine Benzodiazepines Screen Negative Urine Cocaine Screen Negative Urine Cannabinoids Screen Positive White Blood Count 6.0 k/uL (4.5-11.0) Red Blood Count 4.73 M/uL (4.17-5.56) Hemoglobin 15.5 g/dL (12.0-16.0) Hematocrit 45.7 % (34.0-47.0) Mean Corpuscular Volume 96.5 fL (80.0-96.0) Mean Corpuscular Hemoglobin 32.8 pg (26.0-33.0) Mean Corpuscular Hemoglobin Concent 34.0 g/dL (32.0-36.0) Red Cell Distribution Width 13.8 % (11.5-14.5) Platelet Count 263 K/uL (150-450) Mean Platelet Volume 8.7 fL (7.2-11.1) Neutrophils (%) (Auto) 64.5 % (39.4-72.5) Lymphocytes (%) (Auto) 21.2 % (17.6-49.6) Monocytes (%) (Auto) 13.3 % (4.1-12.4) Eosinophils (%) (Auto) 0.6 % (0.4-6.7) Basophils (%) (Auto) 0.4 % (0.3-1.4) Nucleated RBC Relative Count (auto) 0.1 /100WBC Neutrophils # (Auto) 3.9 K/uL (2.0-7.4) Lymphocytes # (Auto) 1.3 K/uL (1.3-3.6) Monocytes # (Auto) 0.8 K/uL (0.3-1.0) Eosinophils # (Auto) 0.0 K/uL (0.0-0.5) Basophils # (Auto) 0.0 K/uL (0.0-0.1) Nucleated RBC Absolute Count (auto) 0.00 K/uL Glomerular Filtration Rate Calc > 60.0 Calcium Level 9.0 mg/dl (8.4-10.2) Total Bilirubin 0.6 mg/dl (0.2-1.3) Aspartate Amino Transf (AST/SGOT) 28 U/L (0-35) Alanine Aminotransferase (ALT/SGPT) 25 U/L (0-56) Alkaline Phosphatase 96 U/L (0-126) Ammonia < 9 UMOL/L (9-33) Troponin I < 0.012 ng/ml Total Protein 6.8 g/dl (6.3-8.2) Albumin 3.7 g/dl (3.5-5.0) Whole Blood Glucose 93 mg/DL (75-110) Toxicology Test 09/03/18 17:41 Urine Opiates Screen Negative Urine Barbiturates Screen Negative Ur Tricyclic Antidepressants Screen Negative Urine Phencyclidine Screen Negative Urine Amphetamines Screen Negative Urine Benzodiazepines Screen Negative Urine Cocaine Screen Negative Urine Cannabinoids Screen Positive Urinalysis Test 09/03/18 00:00 Urine Color Yellow Urine Clarity Clear Urine pH 7.0 pH (4.8-9.5) Urine Specific Alborn 1.020 Urine Protein Negative mg/dL (NEGATIVE) Urine Glucose (UA) Negative mg/dL (NEGATIVE) Urine Ketones Negative mg/dL (NEGATIVE) Urine Blood Negative (NEGATIVE) Urine Nitrite Negative (NEGATIVE) Urine Bilirubin Negative (NEGATIVE) Urine Urobilinogen 4.0 mg/dL (0.2-1.9) Urine Leukocyte Esterase Negative (NEGATIVE) Urine RBC 1 /HPF (0-2/HPF) Urine WBC 2 /HPF (0-5/HPF) Urine Squamous Epithelial Cells None /LPF (NONE-FEW) Urine Bacteria Negative /HPF (NONE-FEW) Urine Hyaline Casts Few /LPF (NONE-FEW) Urine Mucus None /HPF (NONE-FEW) EKG/Imaging Imaging CHEST SINGLE AP HISTORY: Weakness. COMPARISON: Chest x-ray September 12, 2017. FINDINGS: Cardiomediastinal contours: The heart is enlarged. Lungs and pleura: There is no finding of an infiltrate, lymphadenopathy or pleural effusion. Bones/soft tissues: There is diffuse osteopenia but there are no findings of a fracture. There has been resection of the lateral aspect of the right clavicle. There are old fractures involving multiple ribs posterolaterally on the right side. There is probably a chronic rotator cuff tear in the right side. Left axilla: There are surgical clips in left axillary region. IMPRESSION: 1. Cardiomegaly without infiltrate or congestive heart failure. 2. Postoperative changes left axillary region. 3. Multiple old rib fractures on the right side. Report Dictated By: Ilya Harris MD at 09/03/2018 7:46 PM Report E-Signed By: Ilya Harris MD at 09/03/2018 7:47 PM EXAMINATION: CT head without IV contrast HISTORY: Weakness. TECHNIQUE: Axial CT images of the head were obtained from the vertex to the skull base without IV contrast, with coronal and sagittal 2D reconstructed images. One of the following dose optimization techniques was utilized in the performance of this exam: Automated exposure control; adjustment of the mA and/or kV according to the patient's size; or use of an iterative reconstruction technique. Specific details can be referenced in the facility's radiology CT exam operational policy. COMPARISON: 04/07/2017. FINDINGS: Mild generalized parenchymal atrophy, with stable mild patchy low attenuation in the deep white matter, compatible with chronic small vessel ischemic change. Intracranial vascular calcifications. No CT evidence of intracranial hemorrhage, mass lesion, or acute infarct. No midline shift or extra-axial fluid collections. Bertrand-white differentiation is maintained. The calvarium is intact. The partially visualized paranasal sinuses and mastoid air cells are unopacified. IMPRESSION: 1. No CT evidence of acute intracranial pathology. 2. Stable mild chronic age-related changes, with mild parenchymal atrophy. Report Dictated By: Fady Morales MD at 09/03/2018 7:21 PM Report E-Signed By: Fady Morales MD at 09/03/2018 7:26 PM EXAMINATION: CT neck with IV contrast HISTORY: Weakness. COMPARISON: None. TECHNIQUE: Spiral scan was obtained from the hard palate through the upper chest during injection of nonionic iodinated intravenous contrast. Sagittal and coronal reformatted images are also submitted. CONTRAST: 75 mL of IV Isovue-370 One of the following dose optimization techniques was utilized in the performance of this exam: Automated exposure control; adjustment of the mA and/or kV according to the patient's size; or use of an iterative reconstruction technique. Specific details can be referenced in the facility's radiology CT exam operational policy. FINDINGS: Masses/lesions: None. Airway: Normal. Vessels: Mild vascular calcifications at the carotid bifurcations. Vasculature of the neck appears patent. Musculoskeletal/body wall: No acute osseous findings. Chronic multilevel degenerative changes along the cervical spine. There is severe disc space narrowing at the C3-C4 through C6-C7 interspaces with endplate osteophyte formation. Multilevel facet arthropathy bilaterally. There is mild chronic a ppearing anterolisthesis of C6 on C7 related to posterior facet arthropathy. Otherwise normal alignment. The dens appears intact. Normal alignment at the craniocervical junction. Lymph nodes: Negative. Visualized orbits/brain/paranasal sinuses: Negative. Upper chest: Small region of patchy groundglass opacity in the right upper lobe posteriorly along the upper aspect of the visualized major fissure. The visualized upper lungs are otherwise clear. IMPRESSION: 1. No acute findings in the neck. 2. Chronic multilevel spondylotic changes along the cervical spine. 3. Small region of patchy groundglass opacity in the visualized right upper lobe posteriorly, which may represent a small region of infectious or inflammatory pneumonitis. Report Dictated By: Fady Morales MD at 09/03/2018 7:27 PM Report E-Signed By: Fady Morales MD at 09/03/2018 7:31 PM ED Course/Re-evaluation ED Course Patient was admitted to an exam room, history and physical were obtained. Differential diagnoses were considered. On examination lungs are clear, heart is regular, abdomen is soft and nontender. An IV was started, patient was given a liter of normal saline. A CBC, CMP, urinalysis, drug screen, ammonia, CT scan of the head, soft tissues of neck were done. I also did a single view chest x-ray. The lab results were unremarkable, imaging results were also unremarkable. I don't the patient had wanted to be admitted for rehydration and even possible nutrition replacement through a feeding tube. However the patient did not have any indication. I did discuss the case with Dr. Snow, hospitalist, who agreed with not having a reason to admit the patient. His recognition was to follow-up with primary care. I discussed this with the patient and her verbalized understanding and agreement. I did call and speak with Osmani Rivero, nurse practitioner, to discuss how to get the patient on Dr. Duffy's schedule. Her recommendation was to go ahead and email a nurse as well as herself and they would take care of that in the morning. Discussed with plan with the patient and her they verbalized understanding and agreement. Decision to Disposition Date: September 03, 2018 Decision to Disposition Time: 20:52 Depart Departure Latest Vital Signs Vital Signs Date Time Temp Pulse Resp B/P (MAP) Pulse Ox O2 Delivery O2 Flow Rate FiO2 09/03/18 20:30 144/75 (98) 09/03/18 20:20 69 12 99 09/03/18 17:28 97.8 Room Air Impression: Primary Impression: Dysphagia Additional Impression: Difficulty with speech Condition: Improved Disposition: HOME OR SELF-CARE Referrals: KARLOS DUFFY MD (PCP) Patient Instructions: Dysphagia (ED) Additional Instructions: Increase fluid intake, try and push the fluids as much possible. Return to the ER if condition worsens. The IMG group will call tomorrow morning for an appointment for you to be seen. Continue trying to push the Ensure. Continue with normal medications. Problem Qualifiers Primary Impression: Dysphagia Dysphagia type: unspecified Qualified Codes: R13.10 - Dysphagia, unspecified BAILEY REDD September 03, 2018 17:28
[2018-09-03] MEDS ORDERED: NS(*) 0.9% 1000 ML BAG 1,000 ML IV ONE (17:41)
[2018-09-03 17:56] LABS: PLATELET COUNT, AUTOMATED 263 K/uL (150-450)
[2018-09-03] MEDS ORDERED: IOPAMIDOL 76% 100 ML INFUS BTL 100 ML ONE (17:56)
--- NOTE | 2018-09-03 19:31 | RADIOLOGY IMAGING REPORT ---
FACILITY: [facility] PATIENT NAME: Val Wallace : 1935 MR: [id number] V: [id number] EXAM DATE: ORDERING PHYSICIAN: BAILEY REDD TECHNOLOGIST: [place] [facility] [place] Patient: Val Wallace : 1935 Visit/Account:[id number] Date of Sevice: 09/03/2018 EXAMINATION: CT head without IV contrast HISTORY: Weakness. TECHNIQUE: Axial CT images of the head were obtained from the vertex to the skull base without IV c ontrast, with coronal and sagittal 2D reconstructed images. One of the following dose optimization techniques was utilized in the performance of this exam: Autom ated exposure control; adjustment of the mA and/or kV according to the patient's size; or use of an i terative reconstruction technique. Specific details can be referenced in the facility's radiology C T exam operational policy. COMPARISON: 04/07/2017. FINDINGS: Mild generalized parenchymal atrophy, with stable mild patchy low attenuation in the deep white matte r, compatible with chronic small vessel ischemic change. Intracranial vascular calcifications. No CT evidence of intracranial hemorrhage, mass lesion, or acute infarct. No midline shift or extra-a xial fluid collections. Bertrand-white differentiation is maintained. The calvarium is intact. The partially visualized paranasal sinuses and mastoid air cells are unopaci fied. IMPRESSION: 1. No CT evidence of acute intracranial pathology. 2. Stable mild chronic age-related changes, with mild parenchymal atrophy. Report Dictated By: Fady Morales MD at 09/03/2018 7:21 PM Report E-Signed By: Fady Morales MD at 09/03/2018 7:26 PM WSN:[id number]
--- NOTE | 2018-09-03 19:36 | RADIOLOGY IMAGING REPORT ---
FACILITY: [facility] PATIENT NAME: Val Wallace : 1935 MR: [id number] V: [id number] EXAM DATE: ORDERING PHYSICIAN: BAILEY REDD TECHNOLOGIST: Location: [facility] Patient: Val Wallace : 1935 Visit/Account:[id number] Date of Sevice: 09/03/2018 EXAMINATION: CT neck with IV contrast HISTORY: Weakness. COMPARISON: None. TECHNIQUE: Spiral scan was obtained from the hard palate through the upper chest during injection o f nonionic iodinated intravenous contrast. Sagittal and coronal reformatted images are also submitte d. CONTRAST: 75 mL of IV Isovue-370 One of the following dose optimization techniques was utilized in the performance of this exam: Autom ated exposure control; adjustment of the mA and/or kV according to the patient's size; or use of an i terative reconstruction technique. Specific details can be referenced in the facility's radiology C T exam operational policy. FINDINGS: Masses/lesions: None. Airway: Normal. Vessels: Mild vascular calcifications at the carotid bifurcations. Vasculature of the neck appears patent. Musculoskeletal/body wall: No acute osseous findings. Chronic multilevel degenerative changes along the cervical spine. There is severe disc space narrowing at the C3-C4 through C6-C7 interspaces with endplate osteophyte formation. Multilevel facet arthropathy bilaterally. There is mild chronic nilesh earing anterolisthesis of C6 on C7 related to posterior facet arthropathy. Otherwise normal alignmen t. The dens appears intact. Normal alignment at the craniocervical junction. Lymph nodes: Negative. Visualized orbits/brain/paranasal sinuses: Negative. Upper chest: Small region of patchy groundglass opacity in the right upper lobe posteriorly along the upper aspect of the visualized major fissure. The visualized upper lungs are otherwise clear. IMPRESSION: 1. No acute findings in the neck. 2. Chronic multilevel spondylotic changes along the cervical spine. 3. Small region of patchy groundglass opacity in the visualized right upper lobe posteriorly, which may represent a small region of infectious or inflammatory pneumonitis. Report Dictated By: Fady Morales MD at 09/03/2018 7:27 PM Report E-Signed By: Fady Morales MD at 09/03/2018 7:31 PM WSN:[id number]
--- NOTE | 2018-09-03 19:51 | RADIOLOGY IMAGING REPORT ---
FACILITY: [facility] PATIENT NAME: Val Wallace : 1935 MR: [id number] V: [id number] EXAM DATE: ORDERING PHYSICIAN: BAILEY REDD TECHNOLOGIST: Location[place] [facility] [place] Patient: Val Wallace : 1935 Visit/Account:[id number] Date of Sevice: 09/03/2018 CHEST SINGLE AP HISTORY: Weakness. COMPARISON: Chest x-ray September 12, 2017. FINDINGS: Cardiomediastinal contours: The heart is enlarged. Lungs and pleura: There is no finding of an infiltrate, lymphadenopathy or pleural effusion. Bones/soft tissues: There is diffuse osteopenia but there are no findings of a fracture. There has be en resection of the lateral aspect of the right clavicle. There are old fractures involving multiple ribs posterolaterally on the right side. There is probably a chronic rotator cuff tear in the right s shyann. Left axilla: There are surgical clips in left axillary region. IMPRESSION: 1. Cardiomegaly without infiltrate or congestive heart failure. 2. Postoperative changes left axillary region. 3. Multiple old rib fractures on the right side. Report Dictated By: Ilya Harris MD at 09/03/2018 7:46 PM Report E-Signed By: Ilya Harris MD at 09/03/2018 7:47 PM [id number]
[2018-09-03 20:30] VITALS: BP 144/75
== END 2018-09-03 21:03 | disposition home or self-care (01) ==
LOC: ER 17:42
DX: R13.10 Dysphagia, unspecified (principal); R47.9 Unspecified speech disturbances; I10 Essential (primary) hypertension; E78.5 Hyperlipidemia, unspecified
CPT/HCPCS: 36416; 70450; 70491; 71045; 80305; 81001; 82140; 82948; 84443; 84484; 85025; 96360; 99284; A4353; J7030; Q9967; 82040; 82247; 82310; 82374; 82435; 82565; 82947; 84075; 84132; 84155; 84295; 84450; 84460; 84520

== ENCOUNTER → 2018-09-03 | Outpatient (CLI) | payer MEDICARE, BC ==
[2017-09-11 12:29] VITALS: BMI 26.6
== END ==
LOC: AMB 16:59
PROVIDERS: ATTEND Nurse Practitioner
DX: R53.1 Weakness (principal); R63.0 Anorexia
CPT/HCPCS: A0425; A0427

== ENCOUNTER 2018-09-09 14:30 | Outpatient (RCR) | payer MEDICARE, BC ==
[2017-09-11 12:29] VITALS: BMI 26.6
--- NOTE | 2018-08-05 17:06 | PT PLAN OF CARE ---
Physician: Dr. Alan Duffy Patient is being seen: 2x/week Therapist: Britany Wakefield PT Medical Diagnosis: Pelvic fracture Treatment Diagnosis: Same, R26.89 Imbalance Date of Onset: 09/10/17 Date of Initial Evaluation: 02/04/18 Date patient was last seen: 08/05/18 Number of treatments: 45 Number of cancellations/No shows: 0 INTERVENTIONS: Strengthening/condition, Neuromuscular Re-ed, Gait Trg/Balance Trg GOALS: 1 month: Samantha ambulates 100-200 feet with hurrycane on firm surface. (not met) 2 months: Short distance community ambulator with hurrycane (not met), demonstrates steady postural control on uneven surfaces (not met). 3 months: 100-300 distance hurrycane ambulation on uneven surfaces. (not met) 4 months: Low fall risk with community ambulation (progressing), independent ambulator over uneven surfaces (not met). PATIENT'S GOAL: Independent ambulation short community distances (not met), reduce fall risk (progressing). Patient Compliance: Excellent Prognosis: Excellent Reasons for continuing therapy: This is our business office 3 month POC, last POC 2 weeks ago S: Val reports she's still using her 4WW in her home, and hasn't used her cane. She is writing her comments due to lack of voice. Posture: Heels about 4", upright trunk, steady. Strength: LE's improved to 4+/5 quads, hamstrings, R ankle DF, L ankle DF 4/5. Hip abd. L 3+/5, R 4-/5. Gait: 4WW with feet passing each other and clearing the floor. Balance: Parikh Balance Assessment improved from 40 to 42 in two weeks. Val is now working on single leg stand for 1-2 seconds. Functional reach improved from 5 to 7". Mobility: Sit<>keyboarding clerk 1 attempt from low chair, steady immediate standing balance. A/P: Val Wallace has improved strength and is doing better with gait carryover by doing Parkinson's type exercises. If you agree, we'll continue through august at 2x/week. I've requested a referral to Dr. Kiana Mak as this's easier for the Rodrigo's to get to [place] and Mr. Wallace is having difficulty scheduling in [place]. Thank you. TERRANCE
--- NOTE | 2018-08-26 17:58 | SLP PLAN OF CARE ---
SPEECH PATHOLOGY PROGRESS REPORT Date of Initial Evaluation: Vocal production evaluation on 06/03/18. Most recent MBSS on 07/27/18. 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 She was referred for a vocal assessment following completion of a modified barium swallow study in late April of this year. The pt initially presented for an MBSS due to sudden onset of vocal hoarseness and swallowing difficulties. Results of the pts first MBSS indicated mild oropharyngeal dysphagia characterized by the following: oral phase deficits characterized by decreased rotary pattern for mastication, prolonged and laborious bolus formation, piecemeal deglutition and some lingual pumping. Pharyngeally, pt demonstrated mild reduction in tongue base retraction, and diminished hyolaryngeal elevation and excursion resulting in reduced epiglottic inversion with mild to moderate residue in the valleculae. This further resulted in difficulty achieving complete closure of the laryngeal vestibule, although space between the epiglottis and the arytenoid cartilages was minimal. Incomplete closure resulted in flash penetration during the swallow with trials of thin liquids. Material was quickly ejected with bottom to top closure of the vestibule. Of note, the curvature of the pts spine appeared to result in compression against the upper esophagus. This may be contributing to reported globus sensation. (REFER TO FULL REPORT FOR COMPREHENSIVE INFO) Given minimal indicators of oropharyngeal dysphagia, primary emphasis of outpatient SPORTS INSTRUCTOR services was initially placed on vocal deficits with secondary emphasis on review of safe swallow precautions. The pt was also referred for a GI consult due to concern for esophageal dysphagia. An upper GI series was completed with witnessed aspiration of barium liquid, in addition to mild to moderate narrowing of the cervical esophagus. 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 The pt was eventually referred for a repeat MBSS due to observation of choking/coughing with consumption of thin liquids in the outpatient clinic, witnessed aspiration on upper GI series, and pt/spousal report of worsening symptoms of dysphagia in home environment. The second MBSS revealed the following: Pharyngeal weakness has progressed to a mild degree in comparison to the initial study with relatively reduced airway protection, and mildly increased quantity and depth of penetrated material (thin liquids only). No aspiration was observed, despite weak, strangled cough and gagging response while under fluroro. The pt may be hypersensitive to penetrated liquids. Laryngeal response appears correlated to sudden onset of vocal deficits with difficulty efficiently moving the vocal folds. Use of chin tuck helped to improve airway protection and eliminate penetration. Chin tuck, alternation of consistencies, and execution of double swallow also resulted in improved pharyngeal clearance. Chin tuck and alternating solid foods with pureed consistencies was particularly effective in clearing residual material from the vallecular space. Oral phase deficits also progressing, characterized by mildly increased restriction of mandibular movement, decreased rotary pattern for mastication with prolonged and laborious bolus formation. Pt exhibited piecemeal deglutition and some lingual pumping with delayed anterior to posterior transit. (REFER TO FULL REPORT FOR COMPREHENSIVE INFO) Following the pts most recent MBSS results, and with consideration of worsening clinical signs of dysphagia, additional goals were incorporated to address instruction in compensatory swallow strategies and identified areas of pharyngeal weakness. The pts spouse regularly attends ST appointments, and is supportive in providing feedback re: progression of symptoms. The pt has become increasingly aphonic, and is largely reliant on written communication. She also endorses weight loss, limited PO intake (food and liquids), increasing falls, and difficulty breathing. With attempts to consume liquid in the outpatient office, she is now coughing and immediately expectorating material. Attempts to alternatively provide nectar thick vs thin liquid offered some relief. Provided the pt and spouse with thickening packets and information re: distributor. Also povided the pt and spouse a medication crushing device, and a list of suggested food items to increase ease of PO intake. A neurological consult has been strongly recommended, and completed with Dr. Kiana Mak. Ongoing testing is being completed. See medical record for details. The patient has been working on the following short term goals, with STGs 4&5 introduced following repeat MBSS: 1. Pt will independently complete vocal exercise program with focus on laryngeal relaxation to minimize vocal strain and improve overall vocal quality / functional communication. Regressing. A variety of techniques have been attempted to relax laryngeal region and minimize vocal strain, including easy onset, stretching, breathing techniques, and partially occluded phonation. Pt is increasingly aphonic, largely unable to pass air through the glottis, and reliant on writing for communication. Attempted emphasis on diaphragmatic breathing techniques and control of expiratory musculature. Pt now resistant to breathing exercises, communicating in writing I dont like to focus on breathing. It makes it so that I cannot speak or swallow. Discontinue goal. 2. Pt will improve max phonation time from 3 to 8 seconds with good vocal quality including reduced strain and appropriate vocal intensity. Regressing. Pt unable to phonate beyond brief vocal burst during most recent encounter. Reliant on written communication. Emphasis will be shifted to AAC. Discontinue goal. 3. Pt will report a 30+ point reduction on the Voice Handicap Index (VHI), reducing perception of vocal handicap from a severe to a moderate level of impairment. Regressing. Suspect re-administration of VHI will continue to reflect severe impairment with regression of verbal/vocal communication. Discontinue goal. 4. Pt and spouse will receive education regarding safe swallow precautions and compensatory techniques and will independently provide verbal /visual demonstration of comprehension. Continue. Reviewed MBSS results, diet modification recs, use of chin tuck, and recommendation to crush pills. Pt acknowledges information, demonstrates chin tuck sequence with min cues. Pt reporting pills become lodged in her throat despite use of puree wash. Assisted the pt/spouse by purchasing a medication crushing device, as the spouse reports he has been relying on a "hammer and a board." With attempts to consume liquids in the ST office, the pt is now immediately coughing and expectorating material. Pt endorses weight loss and reduction in PO intake (both food and liquids). Informed PCP. Provided the pt and spouse a list of suggested food items to increase ease of PO intake. 5. Pt will participate in an 8wk exercise based dysphagia program to address areas of labial/lingual/mandibular in addition to pharyngeal weakness as identified on objective swallow analysis for improved swallow efficiency with minimized risk for aspiration. Discontinue. Per chart review, neurologist is considering ALS diagnosis which would contraindicate pharyngeal exercises. Will discontinue pending further, conclusive results. UPDATED POC: 1. Pt and spouse will receive education regarding safe swallow precautions and compensatory techniques and will independently provide verbal /visual demonstration of comprehension 2. Pt will utilize diverse mode of communication (writing, gestures, AAC system) to express complex information (e.g., medical symptoms, complex wants/needs) at 90% acc, min cues. RECOMMENDATION It is recommended ST continue at 1wk12 with updated plan of care. New focus will be placed on compensatory swallow strategies and alternative, augmentative communication in response to progression of symptoms. PROGNOSIS: Fair. Thank you for [facility] this [place] [facility]. Please call [phone] to contact the SPORTS INSTRUCTOR. Kinjal fletcher M.S., [facility]-SPORTS INSTRUCTOR Physician Signature Date [*] MTDD
[2018-10-01] MEDS ORDERED: MORP100S32 PO (09:41)
--- NOTE | 2018-10-02 09:08 | PT PLAN OF CARE ---
Physician: Dr. Alan Duffy Patient is being seen: 2x/week Therapist: Britany Wakefield, PT Medical Diagnosis: Pelvic fracture Treatment Diagnosis: Same, R26.89 Imbalance Date of Onset: 09/10/17 Date of Initial Evaluation: 02/04/18 Date patient was last seen: 09/09/18 Number of treatments: 51 Number of cancellations/No shows: 1 INTERVENTIONS: Strengthening/condition, Neuromuscular Re-ed, Gait Trg/Balance Trg, Home Exercise Program GOALS: 1 month: Samantha ambulates 100-200 feet with hurrycane on firm surface. (not met) 2 months: Short distance community ambulator with hurrycane (not met), demonstrates steady postural control on uneven surfaces (not met). 3 months: 100-300 distance hurrycane ambulation on uneven surfaces. (not met) 4 months: Low fall risk with community ambulation (progressing), independent ambulator over uneven surfaces (not met). PATIENT'S GOAL: Independent ambulation short community distances (not met), reduce fall risk (not met). Patient Compliance: Excellent Prognosis: Excellent Reasons for discontinuing therapy: S: Val has been diagnosed with ALS and has gone onto hospice. O: Val was able to ambulate with 4WW at a slow cadance 50 to 80 feet. She had static postural control for 1-2 minutes. A/P: Val fought hard to keep strengthening and work her balance. As she's gone onto hospice, I will close her PT case. Thank you. TERRANCE
--- NOTE | 2018-10-05 12:10 | SLP DISCHARGE NOTE ---
SPEECH PATHOLOGY DISCHARGE SUMMARY Physician: Dr. Alan Duffy MD Clinician: Kinjal Mike M.S., CCC-BODY CORPORATE MANAGER Patient: Val Wallace : 08/15/[birth year] End of Care: 09/09/18 Ms. Val Wallace initially presented to [facility] services at [facility] in late April of this year due to sudden onset of vocal hoarseness and swallowing difficulties. Throughout participation in outpatient interventions, Ms. Hampton symptoms gradually worsened with deterioration noted in deglutition and vocal production. Emphasis was ultimately placed on compensatory swallow strategies, diet modification recommendations, and establishment of alternative augmentative communication techniques. Ms. Wallace was highly motivated to participate. Her spouse, Rolando, was very supportive and consistently attended tx sessions. Ms. Wallace was working towards the following goals after her most recent progress assessment on 08/26/18: 1. Pt and spouse will receive education regarding safe swallow precautions and compensatory techniques and will independently provide verbal /visual demonstration of comprehension (not met). 2. Pt will utilize diverse mode of communication (writing, gestures, AAC system) to express complex information (e.g., medical symptoms, complex wants/needs) at 90% acc, min cues (not met). Ms. Wallace was ultimately diagnosed with amyotrophic lateral sclerosis, and is now on hospice. She was unable to achieve her goals due to the shortened duration of interventions, scheduling conflicts associated with medical appointments, and transition to hospice care. Skilled services will be discontinued at this time. Thank you for referring Ms. Wallace to [facility], and for allowing me to participate in the care of this patient . Please call [phone] to contact the BODY CORPORATE MANAGER with questions or concerns. Respectfully, Kinjal Mike M.S., CCC-BODY CORPORATE MANAGER Physician Signature Date [*] MTDD
== END 2018-09-09 18:00 | disposition home or self-care (01) ==
LOC: PT 14:30
PROVIDERS: ATTEND Internal Medicine
DX: Z47.89 Encounter for other orthopedic aftercare (principal); R26.89 Other abnormalities of gait and mobility; S32.9XXD Fracture of unspecified parts of lumbosacral spine and pelvis, subsequent encounter for fracture with routine healing

== ENCOUNTER → 2018-10-18 | Outpatient (CLI) | payer MEDICARE, BC ==
[2017-09-11 12:29] VITALS: BMI 26.6
[~2018-10-18] MED LIST changes: +MORP100S32 PO
== END ==
LOC: AMB 13:55
PROVIDERS: ATTEND Nurse Practitioner
DX: G12.21 Amyotrophic lateral sclerosis (principal); R41.82 Altered mental status, unspecified
CPT/HCPCS: A0425; A0428